=== PATIENT | female | born 1935 | race African-American/Black ===

== ENCOUNTER 2017-05-12 12:13 | Inpatient (IN) | payer MEDICARE ==
[~2017-05-12] VITALS: Ht 165.1 cm; Wt 63.0 kg
[2017-05-12] MEDS ORDERED: IV NORMAL SALINE 1,000ML 1,000 ML IV SCH (12:42)
[2017-05-12] MEDS ORDERED: 0.9 % SODIUM CHLORIDE 10 ML DISP.SYRIN. IV PRN (12:45)
--- NOTE | 2017-05-12 13:03 | RAD ---
Portable chest, 05/12/2017: History: Weakness The heart size is normal. There is calcific plaquing of the aorta. The pulmonary vascularity is normal. No pulmonary infiltrates are seen. There is no evidence of pleural fluid. Postsurgical change is evident at the right shoulder. IMPRESSION: No acute cardiopulmonary abnormality is detected.
--- NOTE | 2017-05-12 13:18 | EKG ---
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
[2017-05-12 13:24] LABS: BASO % 0 % (0-3); EOS % 0 % (0-3); HEMATOCRIT 42.9 % (36.0-47.0); HEMOGLOBIN 13.7 g/dL (12.0-15.5); LYMPH # 0.9 x10^3/uL (1.0-4.8); LYMPH % 5 % (24-48); MEAN CORPUSCULAR HEMOGLOBIN 29 pg (25-35); MEAN CORPUSCULAR HGB CONC 32 g/dL (31-37); MEAN CORPUSCULAR VOLUME 90 fL (79-100); MONO # 0.7 x10^3/uL (0.0-1.1); MONO % 4 % (0-9); NEUT # 16.2 x10^3uL (1.8-7.7); NEUT % 91 % (31-73); PLATELET COUNT 255 x10^3/uL (140-400); RED BLOOD COUNT 4.74 x10^6/uL (3.50-5.40); WHITE BLOOD COUNT 17.8 x10^3/uL (4.0-11.0)
[2017-05-12 13:43] LABS: ALBUMIN 2.4 g/dL (3.4-5.0); ALBUMIN/GLOBULIN RATIO 0.4 (1.0-1.7); CALCIUM 10.6 mg/dL (8.5-10.1); CREATININE 0.9 mg/dL (0.6-1.0); GFR 72.5; MAGNESIUM 1.8 mg/dL (1.8-2.4); POTASSIUM 3.5 mmol/L (3.5-5.1); TOTAL BILIRUBIN 0.7 mg/dL (0.2-1.0); TOTAL PROTEIN 8.3 g/dL (6.4-8.2)
[2017-05-12 14:12] LABS: % BANDS 1 % (0-9); % LYMPHS 10 % (24-48); % MONOS 3 % (0-10); % SEGS 86 % (35-66); PLT ESTIMATE ADEQUATE (ADEQUATE)
[2017-05-12 14:13] LABS: ANISOCYTOSIS SLIGHT; HYPOCHROMIA SLIGHT; POLYCHROMASIA SLIGHT; TARGET CELLS OCC; TOXIC GRANULATION PRESENT
[2017-05-12] MEDS ORDERED: VANCOMYCIN 1 GM in IV NORMAL SALINE 250ML 250 ML IV ONE (14:15)
[2017-05-12] MEDS ORDERED: IV NORMAL SALINE 1,000ML 1,000 ML IV ONE (14:15)
[2017-05-12] MEDS ORDERED: PIPERACILLIN/TAZOBACTAM 3.375 GM in IV NORMAL SALINE 50ML 50 ML IV ONE (14:15)
[2017-05-12] MEDS ORDERED: VANCOMYCIN 1.5 GM in IV NORMAL SALINE 500ML 500 ML IV ONE (14:30)
[2017-05-12] MEDS ORDERED: IV NORMAL SALINE 50ML 50 ML ONE ×2 (14:55→14:58)
[2017-05-12] MEDS ORDERED: PIPERACILLIN/TAZOBACTAM 3.375 GM VIAL IV ONE ×2 (14:56→14:58)
--- NOTE | 2017-05-12 15:02 | PHYS DOC ---
Past History Past Medical History: Dementia, Diabetes, Hypertension Adult General Chief Complaint Chief Complaint: WEAKNESS/GENERALIZED HPI HPI 82-year-old female patient with history of hypertension and dementia and diabetes who lives with her grandmother brought in by her grandmother because of not eating and drinking for the last 5 days and stays most of time at the bed. Patient's granddaughter states she usually talking and walking without help but for the last 4-5 days she was not acting like herself and was more confused and the granddaughter thinks maybe she has urinary tract infection. Patient is not able to give history and talked with very low volume voice and able to tell her name only. Review of Systems Review of Systems Unable to obtain because of medical condition Current Medications Current Medications Current Medications Medications (Trade) Dose Ordered Sig/Tamela Start Time Stop Time Status Last Admin Dose Admin Piperacillin Sod/ Tazobactam Sod 3.375 gm/Sodium Chloride 50 ml @ 100 mls/hr 1X ONCE 05/12/17 14:15 05/12/17 14:44 DC Sodium Chloride 1,000 ml @ 1,000 mls/hr 1X ONCE 05/12/17 14:15 05/12/17 15:14 Sodium Chloride (Normal Saline Flush) 10 ml QSHIFT PRN 05/12/17 12:45 Vancomycin HCl 1.5 gm/Sodium Chloride 500 ml @ 250 mls/hr 1X ONCE 05/12/17 14:30 05/12/17 16:29 Vancomycin HCl 1 gm/Sodium Chloride 250 ml @ 250 mls/hr 1X ONCE 05/12/17 14:15 05/12/17 14:21 DC Allergies Allergies Allergies Coded Allergies Type Severity Reaction Last Updated Verified No Known Drug Allergies 05/12/17 No Physical Exam Physical Exam Constitutional: Moderate distress, very dry, unable to talk, HENT: Normocephalic, atraumatic, oropharynx dry Eyes: PERRLA, EOMI, conjunctiva normal, no discharge. [] Neck: Normal range of motion, no tenderness, supple, no stridor. [] Cardiovascular: Tachycardia,no murmur [] Lungs & Thorax: Bilateral breath sounds clear to auscultation [] Abdomen: Bowel sounds normal, soft, no tenderness, no masses, no pulsatile masses. [] Skin: Dry, grade 1 pressure sore in sacrum area Back: No tenderness, no CVA tenderness. [] Extremities: No tenderness, no cyanosis, no clubbing, ROM intact, no edema. [] Neurologic: Alert and oriented X 1, normal motor function, normal sensory function, no focal deficits noted. [] Current Patient Data Lab Results Laboratory Tests Test 05/12/17 13:05 White Blood Count 17.8 x10^3/uL (4.0-11.0) H Red Blood Count 4.74 x10^6/uL (3.50-5.40) Hemoglobin 13.7 g/dL (12.0-15.5) Hematocrit 42.9 % (36.0-47.0) Mean Corpuscular Volume 90 fL (79-100) Mean Corpuscular Hemoglobin 29 pg (25-35) Mean Corpuscular Hemoglobin Concent 32 g/dL (31-37) Red Cell Distribution Width 16.0 % (11.5-14.5) H Platelet Count 255 x10^3/uL (140-400) Neutrophils (%) (Auto) 91 % (31-73) H Lymphocytes (%) (Auto) 5 % (24-48) L Monocytes (%) (Auto) 4 % (0-9) Eosinophils (%) (Auto) 0 % (0-3) Basophils (%) (Auto) 0 % (0-3) Neutrophils # (Auto) 16.2 x10^3uL (1.8-7.7) H Lymphocytes # (Auto) 0.9 x10^3/uL (1.0-4.8) L Monocytes # (Auto) 0.7 x10^3/uL (0.0-1.1) Eosinophils # (Auto) 0.0 x10^3/uL (0.0-0.7) Basophils # (Auto) 0.0 x10^3/uL (0.0-0.2) Segmented Neutrophils % 86 % (35-66) H Band Neutrophils % 1 % (0-9) Lymphocytes % 10 % (24-48) L Monocytes % 3 % (0-10) Toxic Granulation Present Platelet Estimate Adequate (ADEQUATE) Large Platelets Occ Polychromasia Slight Hypochromasia Slight Anisocytosis Slight Target Cells Occ Prothrombin Time 12.6 SEC (9.4-11.4) H Prothrombin Time INR 1.2 (0.9-1.1) H Sodium Level 145 mmol/L (136-145) Potassium Level 3.5 mmol/L (3.5-5.1) Chloride Level 101 mmol/L (98-107) Carbon Dioxide Level 33 mmol/L (21-32) H Anion Gap 11 (6-14) Blood Urea Nitrogen 36 mg/dL (7-20) H Creatinine 0.9 mg/dL (0.6-1.0) Estimated GFR (Cockcroft-Gault) 72.5 BUN/Creatinine Ratio 40 (6-20) H Glucose Level 137 mg/dL (70-99) H Lactic Acid Level 4.6 mmol/L (0.4-2.0) *H Calcium Level 10.6 mg/dL (8.5-10.1) H Magnesium Level 1.8 mg/dL (1.8-2.4) Total Bilirubin 0.7 mg/dL (0.2-1.0) Aspartate Amino Transferase (AST) 52 U/L (15-37) H Alanine Aminotransferase (ALT) 39 U/L (14-59) Alkaline Phosphatase 105 U/L (46-116) Creatine Kinase 134 U/L (26-192) Creatine Kinase MB (Mass) 1.3 ng/mL (0.0-3.6) Creatine Kinase MB Relative Index 1.0 % (0-4) Troponin I Quantitative 0.051 ng/mL (0-0.055) AB-Edj-N-Type Natriuretic Peptide 3913 pg/mL (0-449) H Total Protein 8.3 g/dL (6.4-8.2) H Albumin 2.4 g/dL (3.4-5.0) L Albumin/Globulin Ratio 0.4 (1.0-1.7) L Lipase 32 U/L (73-393) L EKG EKG EKG performed at 1315 interpreted by me and showed[ sinus tachycardia at rate of 105, left axis deviation, left anterior fascicular block, LVH, no acute ST and T wave abnormality,] Radiology/Procedures Radiology/Procedures [] [address] [place] [id number] IMAGING REPORT Signed PATIENT: COLTON WEEMS ACCOUNT: [id number] : 1935 LOCATION: ER AGE: 82 SEX: F EXAM STATUS: REG ER ORD. PHYSICIAN: CHAR WELLS MD REASON: generalized weakness PROCEDURE: PORTABLE CHEST 1V Portable chest, 05/12/2017: History: Weakness The heart size is normal. There is calcific plaquing of the aorta. The pulmonary vascularity is normal. No pulmonary infiltrates are seen. There is no evidence of pleural fluid. Postsurgical change is evident at the right shoulder. IMPRESSION: No acute cardiopulmonary abnormality is detected. DICTATED AND SIGNED BY: ADELIA SILVA MD DATE: 05/12/17 1300 CC: CHAR WELLS MD; PCP,NO ~ Course & Med Decision Making Course & Med Decision Making Pertinent Labs and Imaging studies reviewed. (See chart for details) Evaluation of patient in ER showed 82-year-old male patient brought in because of generalized weakness and not eating and drinking for several days. Patient's family were concern for high blood pressure of 180 at home. Patient had mild tachycardia without fever or hypotension with lactic acid of 4.6 and dry oral mucosa. 2 L of IV fluid bolus was given and Zosyn and vancomycin was started. Patient felt better with IV fluid and started to talk asking for food. White count was 17,000 and UA showed 5-10 WBC. Chest x-ray was unremarkable. Plan to admit patient to ICU with diagnosis of severe sepsis. Dr. Hein informed at 1527 and agreed with plan of admission Dragon Disclaimer Dragon Disclaimer This electronic medical record was generated, in whole or in part, using a voice recognition dictation system. Departure Departure: Impression: Primary Impression: Severe sepsis Additional Impressions: UTI (urinary tract infection) Generalized weakness Dehydration Leukocytosis Pressure sore Tobacco abuse Tobacco abuse counseling Disposition: ADMITTED INPATIENT (At 1527) Condition: GUARDED Referrals: PCP,NO (PCP) Critical Care Time Critical care time was [70] minutes exclusive of procedures. Problem Qualifiers CHAR WELLS MD May 12, 2017 15:02
[2017-05-12 15:18] LABS: BILIRUBIN,URINE NEG (NEG); CLARITY,URINE CLOUDY; COLOR,URINE AMBER; GLUCOSE,URINE NEG (NEG)
[2017-05-12 15:19] LABS: BACTERIA,URINE 0 /HPF (0-FEW); SQUAMOUS EPITHELIAL CELL,UR FEW /LPF
[2017-05-12 15:20] LABS: HYALINE CASTS, URINE MOD /HPF
[2017-05-12] MEDS: IV NORMAL SALINE 1,000ML 1,000 ML IV SCH ×2 (15:45→22:25)
[2017-05-12 20:00] VITALS: BP 184/85
[2017-05-12] MEDS ORDERED: METF100010 PO (21:46)
[2017-05-12] MEDS ORDERED: LISI40TA PO (21:46)
[2017-05-12] MEDS ORDERED: METO50TA29 PO (21:47)
[2017-05-12 21:51] VITALS: BP 199/90
[2017-05-12 22:51] VITALS: BP 161/74
[2017-05-12 23:30] VITALS: BP 149/74
[2017-05-13] VITALS (17 sets, daily range): BP systolic 148–174; BP diastolic 65–92
[2017-05-13] MEDS ORDERED: VANCOMYCIN PER PHARMACY MC PRN (02:15)
[2017-05-13] MEDS: hydrALAZINE 20 MG/ML VIAL. IV PRN (03:54)
[2017-05-13] MEDS: PIPERACILLIN/TAZOBACTAM 3.375 GM in IV NORMAL SALINE 50ML 50 ML IV SCH ×4 (05:47→23:32)
[2017-05-13 06:36] LABS: BASO % 0 % (0-3); EOS % 0 % (0-3); HEMATOCRIT 35.1 % (36.0-47.0); HEMOGLOBIN 11.5 g/dL (12.0-15.5); LYMPH # 1.4 x10^3/uL (1.0-4.8); LYMPH % 10 % (24-48); MEAN CORPUSCULAR HEMOGLOBIN 29 pg (25-35); MEAN CORPUSCULAR HGB CONC 33 g/dL (31-37); MEAN CORPUSCULAR VOLUME 90 fL (79-100); MONO # 0.6 x10^3/uL (0.0-1.1); MONO % 5 % (0-9); NEUT % 85 % (31-73); PLATELET COUNT 226 x10^3/uL (140-400); RED BLOOD COUNT 3.92 x10^6/uL (3.50-5.40); RED CELL DISTRIBUTION WIDTH 16.1 % (11.5-14.5); WHITE BLOOD COUNT 12.9 x10^3/uL (4.0-11.0)
[2017-05-13 07:06] LABS: ALBUMIN 1.7 g/dL (3.4-5.0); ALBUMIN/GLOBULIN RATIO 0.4 (1.0-1.7); CALCIUM 8.9 mg/dL (8.5-10.1); CREATININE 0.6 mg/dL (0.6-1.0); GFR 115.8; TOTAL BILIRUBIN 0.5 mg/dL (0.2-1.0); TOTAL PROTEIN 6.2 g/dL (6.4-8.2)
[2017-05-13 07:09] LABS: POTASSIUM 2.6 mmol/L (3.5-5.1)
[2017-05-13] MEDS: POTASSIUM CHLORIDE 20 MEQ TABLET.ER. PO SCH ×3 (08:50→19:55)
[2017-05-13] MEDS: LACTOBACILLUS RHAMNOSUS GG 1 CAPSULE. PO SCH ×2 (08:51→19:55)
[2017-05-13] MEDS: METOPROLOL SUCC 24HR ER 50 MG TAB.ER.24H. PO SCH (08:51)
[2017-05-13] MEDS: MAGNESIUM SULFATE 2GM 50 ML IV SCH (08:52)
[2017-05-13 12:31] LABS: AMPHETAMINE/METHAMPHETAMINE NEG (NEG); BARBITURATES NEG (NEG); BENZODIAZEPINES NEG (NEG); CANNABINOIDS NEG (NEG); COCAINE NEG (NEG); METHADONE NEG (NEG); OPIATES NEG (NEG); PHENCYCLIDINE NEG (NEG)
[2017-05-13 14:06] LABS: CALCIUM 9.3 mg/dL (8.5-10.1); CREATININE 0.7 mg/dL (0.6-1.0); GFR 96.9; POTASSIUM 3.2 mmol/L (3.5-5.1)
[2017-05-13] MEDS ORDERED: VANCOMYCIN 1 GM in IV NORMAL SALINE 250ML 250 ML IV SCH (15:00)
[2017-05-13] MEDS ORDERED: POTASSIUM CHLORIDE 20 MEQ TABLET.ER. PO ONE (15:00)
--- NOTE | 2017-05-13 15:36 | RAD ---
Portable AP upright view CXR: Clinical indications: Weakness. CHF. Comparison: May 12, 2017. Findings: No acute lung infiltrate or pleural effusion or pulmonary edema or lung mass or pneumothorax is seen. The heart size, pulmonary vasculature, mediastinum and both ty are unremarkable. Impression: No acute radiographic abnormality is seen.
[2017-05-13 16:00] LABS: INFLUENZA A PATIENT NEGATIVE (NEGATIVE); INFLUENZA B PATIENT NEGATIVE (NEGATIVE)
--- NOTE | 2017-05-13 16:09 | RAD ---
CT of the head without contrast, 05/13/2017: History: Altered mental status The study is compromised by extensive patient motion artifact. There is moderate cerebral atrophy. There are patchy lucencies in the deep white matter bilaterally compatible with chronic ischemic change. The ventricles are mildly prominent on a compensatory basis. There is no shift of the midline structures. No intracranial hemorrhage is identified. There is calcific plaquing of the distal internal carotid and vertebral IMPRESSION: Limited exam demonstrating no acute intracranial abnormality. PQRS Compliance Statement: One or more of the following individualized dose reduction techniques were utilized for this examination: 1. Automated exposure control 2. Adjustment of the mA and/or kV according to patient size 3. Use of iterative reconstruction technique
--- NOTE | 2017-05-13 18:04 | HP ---
ADMIT DATE: 05/12/2017 HISTORY OF PRESENT ILLNESS: The patient is an 82-year-old -[place] female patient who came to the Emergency Room complaining of weakness and easy fatigability. She apparently lives with the granddaughter, who brought her because of poor appetite. She has not been eating or drinking for the last 5 days and stays most time at the bed and the granddaughter said that she is usually talking and walking without help, but for the last 4 or 5 days, she was not acting like herself and was more confused and she thinks that he might have urinary tract infection. The patient is not able to give any history when she arrived to the Emergency Room, was talking in a very low volume voice. She apparently was extensively investigated in the Emergency Room and was found to have leukocytosis, severe hypokalemia, and lactic acidosis. Her lactic acid was 4.6. She was found also to have hypomagnesemia and she was treated aggressively with IV fluid, IV antibiotic, although no clear, specific focus of infection showed up as her chest x-ray was unremarkable and her urinalysis was really unremarkable. PAST MEDICAL HISTORY: Significant for lisinopril 40 mg once a day, metformin 1000 mg once a day, and metoprolol succinate 50 mg extended release once a day. ALLERGIES: She has no known drug allergies. FAMILY HISTORY: Probably unremarkable. SOCIAL HISTORY: She lives with her granddaughter. She apparently does not smoke, drink alcohol or use recreational drugs. REVIEW OF SYSTEMS: As per history of present illness. PHYSICAL EXAMINATION: GENERAL: On arrival to the Emergency Room, she was somewhat lethargic, arousable. She was pale, but no jaundice, cyanosis, or thyromegaly. No jugular venous distention. No limb edema. VITAL SIGNS: Her heart rate was 108, blood pressure was 175/88, temperature was 98.2, respiratory rate was 20, and oxygen saturation was 93%. HEAD, EYES, EARS, NOSE, AND THROAT: Normocephalic, atraumatic. NECK: Supple. HEART: Showed no first and second heart sounds. No gallop, rub or murmur. CHEST: Clear to auscultation. No crepitation or rhonchi. ABDOMEN: Distended, soft, and nontender. No guarding or rigidity. No organomegaly. Hernial orifice intact. Bowel sounds normal. NEUROLOGIC: She was sleepy, but arousable. Her cranial nerves are intact. EXTREMITIES: She moves extremities without difficulty, although she is mostly bed bound. LABORATORY DATA: On arrival to the Emergency Room showed serum sodium of 145, potassium 3.5, chloride 101, bicarbonate 33, anion gap of 11, BUN 36, creatinine 0.9, estimated GFR was 72 mL per minute. Her glucose was 137, lactic acid was 4.6, calcium was 10.6, magnesium was 1.8. Total bilirubin, AST, ALT, alkaline phosphatase were normal. Her total protein was 8.3, albumin was 2.4, and serum lipase was 32. White cell count was 17,800, hemoglobin 13.7, hematocrit 42.9, MCV 90, and platelet count of 255,000. Prothrombin time was 12.6, INR 1.2. Urinalysis showed the urine was phillip, cloudy with a pH of 5.5, specific gravity 1.020. The urine was positive for small amount of protein, negative for glucose, ketones, trace of blood, negative for nitrite. There was small amount of leukocyte esterase and 6 to 10 wbc's, 5 to 10 wbc's, and no bacteria. She did have a chest x-ray showed that there is calcific plaquing of the aorta. The heart size is normal. The pulmonary vascularity is normal. No pulmonary infiltrates are seen. There is no evidence of pleural fluid. He has post-surgical changes as evident of the right shoulder and the impression is that the patient has no acute cardiopulmonary abnormalities detected. ASSESSMENT AND PLAN: The patient was admitted basically with severe sepsis, possible urinary tract infection, generalized weakness, dehydration, leukocytosis, and pressure sore. She was given about 2 liters of fluid in the Emergency Room and continued on normal saline. She was also started on intravenous antibiotic in the form of vancomycin as well as Zosyn and we will obviously await for the result of the culture and sensitivity of urine and blood culture, and decide on further management accordingly. ASPEN FLOWER MD DR: JOCELYN/antonio JOB#: [id number] / [id number]
[2017-05-14] VITALS (11 sets, daily range): BP systolic 134–198; BP diastolic 64–93
[2017-05-14] MEDS: hydrALAZINE 20 MG/ML VIAL. IV PRN (03:58)
[2017-05-14] MEDS: PIPERACILLIN/TAZOBACTAM 3.375 GM in IV NORMAL SALINE 50ML 50 ML IV SCH ×3 (05:37→19:28)
--- NOTE | 2017-05-14 06:12 | PN ---
DATE: 05/13/2017 SUBJECTIVE: The patient is resting, slightly propped up in bed, in no apparent distress. She continues to be very lethargic and sleepy, but arousable. She denied any complaint. OBJECTIVE: GENERAL: When I examined her this afternoon, she looked well and was clearly in no apparent respiratory distress, slightly pale, but no jaundice, cyanosis, or thyromegaly. No crepitation, no limb edema. VITAL SIGNS: Her heart rate was 96, blood pressure was 152/65, temperature was 99, respiratory rate was 25, and oxygen saturation was 97% on room air. HEAD, EYES, EARS, NOSE AND THROAT: Showed normocephalic, atraumatic. NECK: Supple. HEART: Showed normal first and second heart sounds with no gallop, rub or murmur. CHEST: Clear to auscultation. No crepitation or rhonchi. ABDOMEN: Distended, soft, nontender. No guarding or rigidity. No organomegaly. All hernial orifices are intact. Bowel sounds normal. NEUROLOGIC: Sleepy, but arousable. All her cranial nerves are intact. She moves all extremities without difficulty, although she has tendency to lean towards the right side. Her intake over the last 24 hours was 3000, output was 500. LABORATORY DATA: As of this morning showed her serum sodium to be 144, potassium 3.2, chloride 105, bicarbonate 31, anion gap of 8, BUN 21, creatinine 0.7, estimated GFR was 97 mL per minute. Her glucose 143, calcium was 9.3, magnesium 2. Her lactic acid has normalized at 1.4. Her total protein was 6.2, albumin was 1.7. First set of cardiac enzyme was 0.079 and the second one was 0.227. IMPRESSION: In summary, this is an 82-year-old -[place] female patient who was admitted with weakness, poor appetite. The patient has been eating or drinking for the last 5 days. She was diagnosed with what seems to be severe sepsis, although so far we do not have any obvious focus of infection. Her urinalysis was really unremarkable. Chest x-ray was clear. She has definitely lactic acidosis, most likely type B due to metformin and leukocytosis. Her lab work showed that her white cell count actually is improving down to 12,900. Lactic acidosis, resolved. Hypomagnesemia, improved. Hypokalemia, slightly better and lactic acidosis was resolved; however, she has hypercalcemia and hyperproteinemia in the context of somebody who is a smoker obviously raises the possibility that she might have a malignancy and/or multiple myeloma. We have ordered another chest x-ray. I would check also serum protein electrophoresis and continue with gentle rehydration if the chest x-ray does not show any evidence of fluid overload. ASPEN FLOWER MD DR: JOCELYN/antonio JOB#: [id number] / [id number]
[2017-05-14 06:42] LABS: BASO % 0 % (0-3); EOS % 0 % (0-3); HEMATOCRIT 32.7 % (36.0-47.0); HEMOGLOBIN 10.9 g/dL (12.0-15.5); LYMPH # 1.2 x10^3/uL (1.0-4.8); LYMPH % 11 % (24-48); MEAN CORPUSCULAR HEMOGLOBIN 30 pg (25-35); MEAN CORPUSCULAR HGB CONC 33 g/dL (31-37); MEAN CORPUSCULAR VOLUME 89 fL (79-100); MONO # 0.5 x10^3/uL (0.0-1.1); MONO % 5 % (0-9); NEUT # 9.1 x10^3uL (1.8-7.7); NEUT % 84 % (31-73); PLATELET COUNT 211 x10^3/uL (140-400); RED BLOOD COUNT 3.67 x10^6/uL (3.50-5.40); RED CELL DISTRIBUTION WIDTH 16.2 % (11.5-14.5); WHITE BLOOD COUNT 10.8 x10^3/uL (4.0-11.0)
[2017-05-14 06:59] LABS: ALBUMIN 1.9 g/dL (3.4-5.0); ALBUMIN/GLOBULIN RATIO 0.4 (1.0-1.7); CALCIUM 9.2 mg/dL (8.5-10.1); CREATININE 0.7 mg/dL (0.6-1.0); GFR 96.9; POTASSIUM 3.5 mmol/L (3.5-5.1); TOTAL BILIRUBIN 0.6 mg/dL (0.2-1.0); TOTAL PROTEIN 6.2 g/dL (6.4-8.2)
[2017-05-14 07:52] LABS: % BANDS 5 % (0-9); % LYMPHS 16 % (24-48); % MONOS 4 % (0-10); % SEGS 73 % (35-66); PLATELET CLUMP PRESENT; PLT ESTIMATE ADEQUATE (ADEQUATE)
[2017-05-14 07:53] LABS: OVALOCYTES OCC; SCHISTOCYTES OCC; TARGET CELLS OCC
[2017-05-14 07:54] LABS: HYPOCHROMIA SLIGHT
[2017-05-14] MEDS: MAGNESIUM SULFATE 2GM 50 ML IV SCH (08:09)
[2017-05-14] MEDS: LACTOBACILLUS RHAMNOSUS GG 1 CAPSULE. PO SCH ×2 (08:09→21:00)
[2017-05-14] MEDS: METOPROLOL SUCC 24HR ER 50 MG TAB.ER.24H. PO SCH (08:10)
[2017-05-14] MEDS: POTASSIUM CHLORIDE 20 MEQ TABLET.ER. PO SCH ×3 (08:11→21:00)
--- NOTE | 2017-05-14 08:46 | PDOC2 ---
BIBIANA ANN BLANKING PRESS OPERATOR 05/14/17 0846: CONSULT Date of Admission DATE: 05/14/17 TIME: 08:42 Reason for Consult: elevated trop Problem List Problems Medical Problems: (1) Dehydration Status: Acute (2) Generalized weakness Status: Acute (3) Leukocytosis Status: Acute (4) Pressure sore Status: Acute (5) Severe sepsis Status: Acute (6) Tobacco abuse Status: Acute (7) Tobacco abuse counseling Status: Acute (8) UTI (urinary tract infection) Status: Acute History of Present Illness Ms Ann is an 82 year old female with history of hypertension, dementia and diabetes who was brought to the ED by her granddaughter with complaints of not eating, drinking or walking over the past 4-5 days. She was apparently ambulatory prior to this but had not been getting out of bed. She had also been more confused lately. She is currently up in a chair, alert but unable to give history. She does deny chest pain or dyspnea currently. She was noted to have an elevated troponin so consult was called. History is obtained from family. Past Medical History hypertension, dementia, CHF, stroke, frequent falls. Past Surgical History shoulder surgery Family History non contributory due to age Social History + smoker, no significant ETOH, no illicit drugs. Recently moved from own home in [place] and currently lives with granddaughter. Current Medications Current Medications Sodium Chloride 1,000 ml @ 150 mls/hr Q6H40M IV Last administered on at 16:59; Start 05/12/17 at 12:42; Stop 05/12/17 at 19:21; Status DC Sodium Chloride (Normal Saline Flush) 10 ml QSHIFT PRN IV AFTER MEDS AND BLOOD DRAWS; Start 05/12/17 at 12:45 Sodium Chloride 1,000 ml @ 1,000 mls/hr 1X ONCE IV Last administered on at 15:04; Start 05/12/17 at 14:15; Stop 05/12/17 at 15:14; Status DC Piperacillin Sod/ Tazobactam Sod 3.375 gm/Sodium Chloride 50 ml @ 100 mls/hr 1X ONCE IV Last administered on 05/12/17at 15:05; Start 05/12/17 at 14:15; Stop 05/12/17 at 14:44; Status DC Vancomycin HCl 1 gm/Sodium Chloride 250 ml @ 250 mls/hr 1X ONCE IV ; Start at 14:15; Stop 05/12/17 at 14:21; Status DC Vancomycin HCl 1.5 gm/Sodium Chloride 500 ml @ 250 mls/hr 1X ONCE IV Last administered on 05/12/17at 15:06; Start 05/12/17 at 14:30; Stop 05/12/17 at 16:29 ; Status DC Sodium Chloride 50 ml @ As Directed STK-MED ONCE .ROUTE ; Start 05/12/17 at 14: 55; Stop 05/12/17 at 14:56; Status DC Piperacillin Sod/ Tazobactam Sod (Zosyn) 3.375 gm STK-MED ONCE IV ; Start at 14:56; Stop 05/12/17 at 14:57; Status DC Sodium Chloride 50 ml @ As Directed STK-MED ONCE .ROUTE ; Start 05/12/17 at 14: 58; Stop 05/12/17 at 14:59; Status DC Piperacillin Sod/ Tazobactam Sod (Zosyn) 3.375 gm STK-MED ONCE IV ; Start at 14:58; Stop 05/12/17 at 14:59; Status DC Sodium Chloride 1,000 ml @ 150 mls/hr Q6H40M IV Last administered on at 15:45; Start 05/12/17 at 15:45; Stop 05/13/17 at 07:30; Status DC Metoprolol Succinate (Toprol Xl) 50 mg DAILY PO Last administered on 05/14/17at 08:10; Start 05/13/17 at 09:00 Hydralazine HCl (Apresoline) 10 mg PRN Q4HRS PRN IV ELEVATED BP, SEE COMMENTS Last administered on 05/14/17at 03:58; Start 05/13/17 at 02:15 Vancomycin HCl (Vanco Per Pharmacy) 1 each PRN DAILY PRN MC SEE COMMENTS Last administered on 05/13/17at 07:28; Start 05/13/17 at 02:15 Piperacillin Sod/ Tazobactam Sod 3.375 gm/Sodium Chloride 50 ml @ 100 mls/hr Q6HRS IV Last administered on 05/14/17at 05:37; Start 05/13/17 at 06:00 Vancomycin HCl 1 gm/Sodium Chloride 250 ml @ 250 mls/hr Q24H IV Last administered on 05/13/17at 16:36; Start 05/13/17 at 15:00 Vancomycin HCl 1 each 1X ONCE MC ; Start 05/14/17 at 14:30; Stop 05/14/17 at 14 :31 Potassium Chloride (Klor-Con) 40 meq Q2H PO Last administered on 05/13/17at 12: 21; Start 05/13/17 at 07:30; Stop 05/13/17 at 09:31; Status DC Magnesium Sulfate 50 ml @ 50 mls/hr DAILY IV Last administered on 05/13/17at 08: 52; Start 05/13/17 at 09:00; Stop 05/16/17 at 08:59 Lactobacillus Rhamnosus (Culturelle) 1 cap BID PO Last administered on at 08:09; Start 05/13/17 at 09:00 Potassium Chloride (Klor-Con) 20 meq 1X ONCE PO Last administered on at 16:32; Start 05/13/17 at 15:00; Stop 05/13/17 at 15:01; Status DC Potassium Chloride (Klor-Con) 20 meq TID PO Last administered on 05/14/17at 08: 11; Start 05/13/17 at 21:00 Albuterol/ Ipratropium (Duoneb) 3 ml RTBID NEB ; Start 05/14/17 at 08:30 Active Scripts Active Reported Metoprolol Succinate ( Xl ) (Metoprolol Succinate) 50 Mg Tab.er.24h 50 Mg PO DAILY Lisinopril 40 Mg Tablet 40 Mg PO DAILY Metformin Hcl Er (Metformin Hcl) 1,000 Mg Tab.er.24 1 Tab PO DAILY Allergies: Coded Allergies: I S O L A T I O N *CONTACT* (Verified Allergy, Unknown, 05/14/17) +MRSA screen 05/12/17 NKMA (Verified Allergy, Unknown, 05/14/17) Review of System as per HPI, otherwise unable to obtain General: Alert, Cooperative, No acute distress HEENT: Atraumatic, EOMI Lungs: Other (decreased bases, poor inspiratory effort, otherwise clear) Heart: Regular rate, Normal S1, Normal S2, Other (no gallops, clicks or rubs) Abdomen: Normal bowel sounds, Soft Extremities: No cyanosis, No edema, Normal pulses Neuro: Other (mumbling speech ) Psych/Mental Status: Other (flat affect) VITALS Vital Signs Date Time Temp Pulse Resp B/P (MAP) Pulse Ox O2 Delivery O2 Flow Rate FiO2 05/14/17 08:25 Room Air 05/14/17 08:12 97.9 05/14/17 08:10 86 156/74 05/14/17 06:08 16 97 05/13/17 14:04 2.0 Labs Laboratory Tests Test 05/12/17 13:05 05/12/17 14:55 05/12/17 17:40 05/12/17 22:30 White Blood Count 17.8 x10^3/uL (4.0-11.0) Red Blood Count 4.74 x10^6/uL (3.50-5.40) Hemoglobin 13.7 g/dL (12.0-15.5) Hematocrit 42.9 % (36.0-47.0) Mean Corpuscular Volume 90 fL (79-100) Mean Corpuscular Hemoglobin 29 pg (25-35) Mean Corpuscular Hemoglobin Concent 32 g/dL (31-37) Red Cell Distribution Width 16.0 % (11.5-14.5) Platelet Count 255 x10^3/uL (140-400) Neutrophils (%) (Auto) 91 % (31-73) Lymphocytes (%) (Auto) 5 % (24-48) Monocytes (%) (Auto) 4 % (0-9) Eosinophils (%) (Auto) 0 % (0-3) Basophils (%) (Auto) 0 % (0-3) Neutrophils # (Auto) 16.2 x10^3uL (1.8-7.7) Lymphocytes # (Auto) 0.9 x10^3/uL (1.0-4.8) Monocytes # (Auto) 0.7 x10^3/uL (0.0-1.1) Eosinophils # (Auto) 0.0 x10^3/uL (0.0-0.7) Basophils # (Auto) 0.0 x10^3/uL (0.0-0.2) Segmented Neutrophils % 86 % (35-66) Band Neutrophils % 1 % (0-9) Lymphocytes % 10 % (24-48) Monocytes % 3 % (0-10) Toxic Granulation Present Platelet Estimate Adequate (ADEQUATE) Large Platelets Occ Polychromasia Slight Hypochromasia Slight Anisocytosis Slight Target Cells Occ Prothrombin Time 12.6 SEC (9.4-11.4) Prothromb Time International Ratio 1.2 (0.9-1.1) Sodium Level 145 mmol/L (136-145) Potassium Level 3.5 mmol/L (3.5-5.1) Chloride Level 101 mmol/L (98-107) Carbon Dioxide Level 33 mmol/L (21-32) Anion Gap 11 (6-14) Blood Urea Nitrogen 36 mg/dL (7-20) Creatinine 0.9 mg/dL (0.6-1.0) Estimated GFR (Cockcroft-Gault) 72.5 BUN/Creatinine Ratio 40 (6-20) Glucose Level 137 mg/dL (70-99) Lactic Acid Level 4.6 mmol/L (0.4-2.0) 2.0 mmol/L (0.4-2.0) Calcium Level 10.6 mg/dL (8.5-10.1) Magnesium Level 1.8 mg/dL (1.8-2.4) Total Bilirubin 0.7 mg/dL (0.2-1.0) Aspartate Amino Transf (AST/SGOT) 52 U/L (15-37) Alanine Aminotransferase (ALT/SGPT) 39 U/L (14-59) Alkaline Phosphatase 105 U/L (46-116) Creatine Kinase 134 U/L (26-192) Creatine Kinase MB (Mass) 1.3 ng/mL (0.0-3.6) Creatine Kinase MB Relative Index 1.0 % (0-4) Troponin I Quantitative 0.051 ng/mL (0-0.055) KA-Oiz-Q-Type Natriuretic Peptide 3913 pg/mL (0-449) Total Protein 8.3 g/dL (6.4-8.2) Albumin 2.4 g/dL (3.4-5.0) Albumin/Globulin Ratio 0.4 (1.0-1.7) Lipase 32 U/L (73-393) Urine Collection Type Unknown Urine Color Dania Urine Clarity Cloudy Urine pH 5.5 Urine Specific [place] 1.020 Urine Protein 30 mg/dl (NEG-TRACE) Urine Glucose (UA) Neg mg/dL (NEG) Urine Ketones (Stick) Neg mg/dL (NEG) Urine Blood Trace (NEG) Urine Nitrite (NEG) Urine Bilirubin Neg (NEG) Urine Urobilinogen Dipstick mg/dL (0.2 mg/dL) Urine Leukocyte Esterase Small (NEG) Urine RBC 6-10 /HPF (0-2) Urine WBC 5-10 /HPF (0-4) Urine Squamous Epithelial Cells Few /LPF Urine Bacteria 0 /HPF (0-FEW) Urine Hyaline Casts Mod /HPF Urine Mucus Marked /LPF Urine Opiates Screen Neg (NEG) Urine Methadone Screen Neg (NEG) Urine Barbiturates Neg (NEG) Urine Phencyclidine Screen Neg (NEG) Urine Amphetamine/Methamphetamine Neg (NEG) Urine Benzodiazepines Screen Neg (NEG) Urine Cocaine Screen Neg (NEG) Urine Cannabinoids Screen Neg (NEG) Urine Ethyl Alcohol Neg (NEG) Nasal Screen MRSA (PCR) Positive (Negative) Test 05/13/17 05:30 05/13/17 13:50 05/13/17 15:30 05/14/17 05:45 White Blood Count 12.9 x10^3/uL (4.0-11.0) 10.8 x10^3/uL (4.0-11.0) Red Blood Count 3.92 x10^6/uL (3.50-5.40) 3.67 x10^6/uL (3.50-5.40) Hemoglobin 11.5 g/dL (12.0-15.5) 10.9 g/dL (12.0-15.5) Hematocrit 35.1 % (36.0-47.0) 32.7 % (36.0-47.0) Mean Corpuscular Volume 90 fL (79-100) 89 fL (79-100) Mean Corpuscular Hemoglobin 29 pg (25-35) 30 pg (25-35) Mean Corpuscular Hemoglobin Concent 33 g/dL (31-37) 33 g/dL (31-37) Red Cell Distribution Width 16.1 % (11.5-14.5) 16.2 % (11.5-14.5) Platelet Count 226 x10^3/uL (140-400) 211 x10^3/uL (140-400) Neutrophils (%) (Auto) 85 % (31-73) 84 % (31-73) Lymphocytes (%) (Auto) 10 % (24-48) 11 % (24-48) Monocytes (%) (Auto) 5 % (0-9) 5 % (0-9) Eosinophils (%) (Auto) 0 % (0-3) 0 % (0-3) Basophils (%) (Auto) 0 % (0-3) 0 % (0-3) Neutrophils # (Auto) 11.0 x10^3uL (1.8-7.7) 9.1 x10^3uL (1.8-7.7) Lymphocytes # (Auto) 1.4 x10^3/uL (1.0-4.8) 1.2 x10^3/uL (1.0-4.8) Monocytes # (Auto) 0.6 x10^3/uL (0.0-1.1) 0.5 x10^3/uL (0.0-1.1) Eosinophils # (Auto) 0.0 x10^3/uL (0.0-0.7) 0.0 x10^3/uL (0.0-0.7) Basophils # (Auto) 0.0 x10^3/uL (0.0-0.2) 0.0 x10^3/uL (0.0-0.2) Sodium Level 148 mmol/L (136-145) 144 mmol/L (136-145) 145 mmol/L (136-145) Potassium Level 2.6 mmol/L (3.5-5.1) 3.2 mmol/L (3.5-5.1) 3.5 mmol/L (3.5-5.1) Chloride Level 109 mmol/L (98-107) 105 mmol/L (98-107) 109 mmol/L (98-107) Carbon Dioxide Level 29 mmol/L (21-32) 31 mmol/L (21-32) 29 mmol/L (21-32) Anion Gap 10 (6-14) 8 (6-14) 7 (6-14) Blood Urea Nitrogen 24 mg/dL (7-20) 21 mg/dL (7-20) 16 mg/dL (7-20) Creatinine 0.6 mg/dL (0.6-1.0) 0.7 mg/dL (0.6-1.0) 0.7 mg/dL (0.6-1.0) Estimated GFR (Cockcroft-Gault) 115.8 96.9 96.9 BUN/Creatinine Ratio 40 (6-20) 23 (6-20) Glucose Level 96 mg/dL (70-99) 143 mg/dL (70-99) 108 mg/dL (70-99) Lactic Acid Level 1.4 mmol/L (0.4-2.0) Calcium Level 8.9 mg/dL (8.5-10.1) 9.3 mg/dL (8.5-10.1) 9.2 mg/dL (8.5-10.1) Magnesium Level 1.5 mg/dL (1.8-2.4) 2.0 mg/dL (1.8-2.4) 1.8 mg/dL (1.8-2.4) Total Bilirubin 0.5 mg/dL (0.2-1.0) 0.6 mg/dL (0.2-1.0) Aspartate Amino Transf (AST/SGOT) 45 U/L (15-37) 64 U/L (15-37) Alanine Aminotransferase (ALT/SGPT) 28 U/L (14-59) 34 U/L (14-59) Alkaline Phosphatase 75 U/L (46-116) 84 U/L (46-116) Troponin I Quantitative 0.079 ng/mL (0-0.055) 0.227 ng/mL (0-0.055) 0.355 ng/mL (0-0.055) Total Protein 6.2 g/dL (6.4-8.2) 6.2 g/dL (6.4-8.2) Albumin 1.7 g/dL (3.4-5.0) 1.9 g/dL (3.4-5.0) Albumin/Globulin Ratio 0.4 (1.0-1.7) 0.4 (1.0-1.7) Influenza Type A (Rapid) Negative (NEGATIVE) Influenza Type B (Rapid) Negative (NEGATIVE) Segmented Neutrophils % 73 % (35-66) Band Neutrophils % 5 % (0-9) Lymphocytes % 16 % (24-48) Monocytes % 4 % (0-10) Platelet Estimate Adequate (ADEQUATE) Platelet Clumps, EDTA Present Hypochromasia Slight Target Cells Occ Ovalocytes Occ Schistocytes Occ Test 05/14/17 07:57 Glucose (Fingerstick) 102 mg/dL (70-99) Images CT head - IMPRESSION: Limited exam demonstrating no acute intracranial abnormality. CXR - no acute abnormality Assessment/Plan 1. elevated troponin likely demand related - check echocardiogram, add aspirin , continue beta ravi. Continue supportive care at this time. 2. sepsis with lactic acidosis - mgmt per PCP 3. accelerated hypertension - add hydralazine 4. hyperlipidemia - check lipids Problems: MARYAM ROBLEDO MD 05/14/17 1637: CONSULT Allergies: Coded Allergies: I S O L A T I O N *CONTACT* (Verified Allergy, Unknown, 05/14/17) +MRSA screen 05/12/17 NKMA (Verified Allergy, Unknown, 05/14/17) Assessment/Plan Pt. seen and examined. Agree with above LAPIDARY APPRENTICE note. 82 y.o woman presenting with possible sepsis. No clear source EKG and troponin mildly abnormal. Significant hypertension noted. Suspect demand mediated issue. Based on echo, could then consider further ischemic evaluation. Thanks. Problems: BIBIANA ANN APRN May 14, 2017 08:46 MARYAM ROBLEDO MD May 14, 2017 16:37
[2017-05-14] MEDS: IPRATRPIUM/ALBUTEROL 0.5/2.5MG 3 ML NEBU. NEB SCH ×2 (11:01→21:49)
[2017-05-14] MEDS: hydrALAZINE 25 MG TABLET PO SCH ×2 (12:18→21:00)
[2017-05-14] MEDS: NYSTATIN TOPICAL POWDER 15GM BOTTLE. TP SCH ×2 (16:00→21:00)
[2017-05-15] MEDS: PIPERACILLIN/TAZOBACTAM 3.375 GM in IV NORMAL SALINE 50ML 50 ML IV SCH ×2 (00:27→05:57)
[2017-05-15 04:00] VITALS: BP 170/85
--- NOTE | 2017-05-15 04:57 | PN ---
DATE: 05/14/2017 SUBJECTIVE: The patient is resting, slightly propped up in bed, in no apparent distress. She is definitely more awake, alert today. She has been in the chair and her granddaughter stated that she is definitely more awake today compared to since admission, but before last Friday she was up and about, managing to walk, climb about 14 stairs to go to the bathroom. She is mostly fairly independent, although she needs some assistance with shower and for toileting. PHYSICAL EXAMINATION: GENERAL: When I examined her today, she looked well and was clearly in no apparent respiratory distress, pale, but no jaundice, cyanosis or thyromegaly. No jugular venous distention. No lower limb edema. VITAL SIGNS: Her heart rate was 83, blood pressure 149/69, temperature was 97.5, respiratory 23 and oxygen saturation was 99%. HEAD, EYES, EARS, NOSE AND THROAT: Showed normocephalic, atraumatic. NECK: Supple. HEART: Showed normal first and second sounds. No gallop, rub or murmur. CHEST: Clear to auscultation. No crepitation or rhonchi. ABDOMEN: Distended, soft, nontender. No guarding or rigidity. No organomegaly. Hernial orifice intact. Bowel sounds normal. NEUROLOGIC: She is more awake, alert, responding. All cranial nerves appears intact. She moves extremities without difficulty; however, she continued to be mostly bedbound, chair bound. Her intake over the last 24 hours was 800, output was 125. LABORATORY DATA: This morning showed her serum sodium to be 145, potassium 3.5, chloride 109, bicarbonate 29, anion gap of 7, BUN 16, creatinine 0.7. Estimated GFR was 97 mL per minute. Her glucose was 108. Calcium was 9.2. Magnesium was 1.8. Total bilirubin, AST, ALT, alkaline phosphatase were normal. Her total protein was 6.2, albumin was 1.9. Her triglycerides were 86. Cholesterol was at 112. LDL cholesterol was 67, VLDL was 17, HDL cholesterol was 84 and the ratio was 4. Her prothrombin time was 12.6. INR 1.2. Her nasal screen for MRSA by PCR was positive; however, influenza A and B were negative. Her urine culture grew more than 100,000 colony forming units per mL of gram-negative rods identified as Pseudomonas aeruginosa sensitive to almost all antibiotics including piperacillin and tazobactam. ASSESSMENT: 1. This is an 82-year-old -[place] female patient who was admitted with weakness, poor appetite, has not been eating or drinking for almost 5 days. 2. Diagnosed with severe sepsis. 3. Lactic acidosis likely due to type B due to metformin. She was also found to have hypomagnesemia, hypokalemia as well as hypercalcemia. Her urine culture has grown more than 100,000 colony forming units per mL of gram-negative rods identified as Pseudomonas aeruginosa sensitive to Zosyn. PLAN: My plan is to discontinue vancomycin. Continue with IV Zosyn. Continue with physical and occupational therapy. We will hold her metformin for now. Her blood sugar seems to be so far all the measurements are within acceptable range and the plan is for her to go to [facility] as she is too weak and once able to, will need extensive assistance to go back home for the time being. ASPEN FLOWER MD DR: JOCELYN/antonio JOB#: [id number] / [id number]
[2017-05-15 06:50] LABS: BASO % 0 % (0-3); EOS % 0 % (0-3); HEMATOCRIT 29.8 % (36.0-47.0); HEMOGLOBIN 9.9 g/dL (12.0-15.5); LYMPH # 1.2 x10^3/uL (1.0-4.8); LYMPH % 15 % (24-48); MEAN CORPUSCULAR HEMOGLOBIN 30 pg (25-35); MEAN CORPUSCULAR HGB CONC 33 g/dL (31-37); MEAN CORPUSCULAR VOLUME 89 fL (79-100); MONO # 0.5 x10^3/uL (0.0-1.1); MONO % 6 % (0-9); NEUT # 6.3 x10^3uL (1.8-7.7); NEUT % 79 % (31-73); PLATELET COUNT 179 x10^3/uL (140-400); RED BLOOD COUNT 3.34 x10^6/uL (3.50-5.40); RED CELL DISTRIBUTION WIDTH 16.3 % (11.5-14.5); WHITE BLOOD COUNT 8.1 x10^3/uL (4.0-11.0)
[2017-05-15 07:09] LABS: ALBUMIN 1.8 g/dL (3.4-5.0); ALBUMIN/GLOBULIN RATIO 0.5 (1.0-1.7); CALCIUM 8.8 mg/dL (8.5-10.1); CREATININE 0.6 mg/dL (0.6-1.0); GFR 115.8; POTASSIUM 3.5 mmol/L (3.5-5.1); TOTAL BILIRUBIN 0.5 mg/dL (0.2-1.0); TOTAL PROTEIN 5.7 g/dL (6.4-8.2)
[2017-05-15] MEDS: METOPROLOL SUCC 24HR ER 50 MG TAB.ER.24H. PO SCH (07:39)
[2017-05-15] MEDS: LACTOBACILLUS RHAMNOSUS GG 1 CAPSULE. PO SCH (07:39)
[2017-05-15] MEDS: hydrALAZINE 25 MG TABLET PO SCH (07:39)
[2017-05-15] MEDS: POTASSIUM CHLORIDE 20 MEQ TABLET.ER. PO SCH (07:40)
[2017-05-15 08:00] VITALS: BP 188/95
[2017-05-15] MEDS ORDERED: ASPIRIN ENTERIC COATED 81 MG TABLET.DR. PO SCH (08:00)
[2017-05-15] MEDS: IPRATRPIUM/ALBUTEROL 0.5/2.5MG 3 ML NEBU. NEB SCH (10:23)
--- NOTE | 2017-05-15 17:01 | CARD ---
MR#: [id number] Date of Study: 05/14/2017 Ordering Physician: BIBIANA WEEMS, Referring Physician: Ginna CONCEPCION: Gladis Daily [facility] APPROVED REPORT EXAM: Two-dimensional and M-mode echocardiogram with Doppler and color Doppler. Other Information Quality : Average INDICATION COPD UTI 2D DIMENSIONS Left Atrium(2D)2.6 (1.6-4.0cm)IVSd1.6 (0.7-1.1cm) Aortic Root(2D)3.0 (2.0-3.7cm)LVDd4.5 (3.9-5.9cm) LVOT Diameter2.0 (1.8-2.4cm)PWd1.4 (0.7-1.1cm) LVDs3.3 (2.5-4.0cm)FS (%) 31.0 % LVEF(%)65.0 (>50%) Aortic Valve AoV Peak Jassi.149.0cm/Kristin Peak GR.8.9mmHg LVOT Peak Jassi.88.6cm/s Mitral Valve MV E Sxajubmt00.0cm/sMV DECEL [id number] MV A Rkkqihco328.6cm/sMV [id number] E/A Ratio0.6MVA (PHT)1.91cm2 Pulmonary Valve PV Peak Inxgmezs60.9cm/sPV Peak Grad.2mmHg Tricuspid Valve TR P. Oinbvwgb381lw/sRAP EWTMQWAD0crBu TR Peak Gr.93crXkPUTO45jxDd LEFT VENTRICLE The left ventricle is normal size. There is moderate concentric left ventricular hypertrophy. Proxima l septal thickening is noted. The left ventricle systolic function is normal. The Ejection Fraction i s 65%. There is normal LV segmental wall motion. Transmitral Doppler flow pattern is Grade I-abnormal relaxation pattern. RIGHT VENTRICLE The right ventricle is normal size. There is normal right ventricular wall thickness. The right ventr icular systolic function is normal. There is moderate pulmonary hypertension. PAP is 48mmHg. ATRIA The left atrium size is normal. The right atrium size is normal. The interatrial septum is intact wit h no evidence for an atrial septal defect or patent foramen ovale as noted on 2-D or Doppler imaging. AORTIC VALVE The aortic valve is trileaflet. The aortic valve is moderately calcified. Doppler and Color Flow reve aled trace aortic regurgitation. There is no significant aortic valvular stenosis. MITRAL VALVE Mitral annular calcification is mild. The mitral valve is normal in structure and function. There is no evidence of mitral valve prolapse. There is no mitral valve stenosis. Doppler and Color-flow revea led mild mitral regurgitation. TRICUSPID VALVE The tricuspid valve is normal in structure and function. Doppler and Color Flow revealed mild tricusp id regurgitation. There is no tricuspid valve stenosis. PULMONIC VALVE The pulmonary valve is normal in structure and function. Doppler and Color Flow revealed trace pulmon ic valvular regurgitation. GREAT VESSELS The aortic root is normal in size. The ascending aorta is normal in size. The IVC is normal in size a nd collapses >50% with inspiration. PERICARDIAL EFFUSION There is no evidence of significant pericardial effusion. Critical Notification Critical Value: No <Conclusion> The left ventricle systolic function is normal. The Ejection Fraction is 65%. There is normal LV segmental wall motion. Transmitral Doppler flow pattern is Grade I-abnormal relaxation pattern. Mild mitral regurgitation. Mild tricuspid regurgitation. There is moderate pulmonary hypertension. PAP is 48mmHg. There is no evidence of significant pericardial effusion. Signed by : Calixto Hanson, Electronically Approved : 05/15/2017 17:01:45
--- NOTE | 2017-05-15 22:32 | DS ---
DATE OF DISCHARGE: 05/15/2017 HISTORY OF PRESENT ILLNESS: The patient is an 82-year-old -[place] female patient, who was admitted originally on 05/12/2017, complained of weakness and easy fatigability. She apparently lives with her granddaughter, who brought her because of poor appetite. She has not been eating or drinking for the last 5 days, stays most of the time on the bed. Granddaughter said that she is usually able to walk and talk without any assistance, but for the last 4-5 days, she was not acting like herself and was more confused and she thinks she might have urinary tract infection. When she came, she was extremely lethargic, was not given any useful information; however, she was extensively investigated and was found to have leukocytosis, severe hypokalemia, lactic acidosis. Lactic acid was 4.6. She was found also to have hypomagnesemia, treated aggressively with IV fluid, IV antibiotic, although initially there was no clearcut focus of infection as her chest x-ray was unremarkable and urinalysis was really unremarkable. Subsequently, she was found to be on metformin ____ at least her lactic acidosis as she was hypertensive, but the urine culture has ultimately has grown more than 100,000 colony forming units of gram-negative rods, identified as Pseudomonas aeruginosa, sensitive to all antibiotics and in fact she was on piperacillin-tazobactam. She did very well. She was definitely more awake, alert, oriented, and interactive, and she remained stable. LABORATORY DATA: [place] [address] to 8.1 and her BUN and creatinine has normalized and it was felt that the patient would benefit from further rehabilitation, she was discharged to [facility] to continue with the rehabilitation process and also to continue with wound care and to finish the antibiotic orally. PHYSICAL EXAMINATION: GENERAL: When I saw her today, she looked well and was clearly in no apparent respiratory distress, pale, but no jaundice, cyanosis, or thyromegaly. No jugular venous distension. No lower limb edema. VITAL SIGNS: Her heart rate was 90, blood pressure was 188/95, temperature was 98.6, respiratory rate was 20, and oxygen saturation was 97% on room air. HEAD, EYES, EARS, NOSE, AND THROAT: Normocephalic, atraumatic. NECK: Supple. HEART: Showed normal first and second sounds. No gallop, rub, or murmur. CHEST: Clear to auscultation. No crepitation or rhonchi. ABDOMEN: Distended, soft, nontender. No guarding or rigidity. No organomegaly. Hernial orifice intact. Bowel sounds normal. NEUROLOGICAL: She is definitely more awake, alert, responding appropriately. Cranial nerves intact. She moves extremities without difficulty. She did have multiple wounds that she came in with. MEDICATIONS: She was discharged to [facility] to continue on following medications: Aspirin 81 mg once a day, ciprofloxacin 250 mg twice a day for 5 days, hydralazine 25 mg p.o. b.i.d., lactobacillus acidophilus 1 tablet twice a day, nystatin 15 grams twice a day, potassium chloride 3 times a day, metoprolol succinate 50 mg once a day. Her metformin and lisinopril were discontinued. FINAL DISCHARGE DIAGNOSES: 1. Weakness, poor appetite, dehydration. 2. Severe sepsis due to urinary tract infection. 3. Lactic acidosis likely type B diabetes due to metformin. 4. Hypomagnesemia. 5. Hypokalemia. 6. Hypercalcemia. Her urine culture has grown more than 100,000 colony forming units per mL of gram-negative rods identified as Pseudomonas aeruginosa sensitive to Zosyn and also ciprofloxacin. ASPEN FLOWER MD DR: JOCELYN/antonio JOB#: [id number] / [id number]
[2017-05-16 04:10] LABS: HEMOGLOBIN A1C 5.4 % (4.8-5.6)
[2017-05-16 10:09] LABS: ALPHA 1 0.4 g/dL (0.0-0.4); ALPHA 2 0.9 g/dL (0.4-1.0); GAMMA 1.3 g/dL (0.4-1.8); PROTEIN TOTAL 5.5 g/dL (6.0-8.5); SPEP AG RATIO 0.6 (0.7-1.7)
== END 2017-05-15 11:30 | DRG 871 ==
LOC: ER 12:13 → ICU 15:36
PROVIDERS: ADMIT Internal Medicine; ATTEND Internal Medicine
DX: A41.9 Sepsis, unspecified organism (principal); E43 Unspecified severe protein-calorie malnutrition; I11.0 Hypertensive heart disease with heart failure; L89.151 Pressure ulcer of sacral region, stage 1; E86.0 Dehydration; I50.9 Heart failure, unspecified; E11.9 Type 2 diabetes mellitus without complications; N39.0 Urinary tract infection, site not specified; R64 Cachexia; F03.90 Unspecified dementia, unspecified severity, without behavioral disturbance, psychotic disturbance, mood disturbance, and anxiety; E78.5 Hyperlipidemia, unspecified; E83.42 Hypomagnesemia; E83.52 Hypercalcemia; E87.6 Hypokalemia; R29.6 Repeated falls; R65.20 Severe sepsis without septic shock; F17.210 Nicotine dependence, cigarettes, uncomplicated; B96.5 Pseudomonas (aeruginosa) (mallei) (pseudomallei) as the cause of diseases classified elsewhere; Z79.899 Other long term (current) drug therapy; Z86.73 Personal history of transient ischemic attack (TIA), and cerebral infarction without residual deficits; Z79.84 Long term (current) use of oral hypoglycemic drugs; Z68.23 Body mass index [BMI] 23.0-23.9, adult; Z71.6 Tobacco abuse counseling
CPT/HCPCS: 36415; 51702; 70450; 71045; 80048; 80053; 80061; 80307; 81001; 82553; 82947; 83036; 83605; 83690; 83735; 83880; 84165; 84484; 85007; 85025; 85610; 87040; 87070; 87086; 87186; 87205; 87641; 87804; 93005; 93306; 94640; 96365; 96366; 96368; J0360; J2543; J3370; J3475; J7040; J7050; J7620; 97530; 99291-25; G0479; J7030

== ENCOUNTER 2017-06-11 14:28 | Inpatient (IN) | payer MEDICARE ==
[~2017-06-11] VITALS: Ht 157.5 cm; Wt 66.3 kg
[~2017-06-11 14:28] MED LIST: LISI40TA PO; METF100010 PO; METO50TA29 PO
--- NOTE | 2017-06-11 14:58 | EKG ---
[address] [address] Test Date: 2017-06-11 Test Time: 14:46:26 Pat Name: COLTON WEEMS Department: Room: Gender: F Spout Liner: : 1935 Requested By: CHAR WELLS Order Number: [id number] Reading MD: Calixto Hanson Measurements Intervals [place] Rate: 54 P: 47 NV: 178 QRS: -37 QRSD: 104 T: -22 QT: 466 QTc: 444 Interpretive Statements SINUS ARRHYTHMIA ABNORMAL LEFT AXIS DEVIATION LEFT VENTRICULAR HYPERTROPHY QRS(T) CONTOUR ABNORMALITY CONSIDER ANTEROLATERAL MYOCARDIAL DAMAGE T ABNORMALITY IN INFERIOR LEADS ABNORMAL ECG Electronically Signed On 06-26-2017 17:46:46 CDT by Calixto Hanson
[2017-06-11 15:05] LABS: BASO # 0.1 x10^3/uL (0.0-0.2); BASO % 1 % (0-3); EOS # 0.1 x10^3/uL (0.0-0.7); EOS % 1 % (0-3); HEMATOCRIT 33.7 % (36.0-47.0); HEMOGLOBIN 11.1 g/dL (12.0-15.5); LYMPH # 1.8 x10^3/uL (1.0-4.8); LYMPH % 16 % (24-48); MEAN CORPUSCULAR HEMOGLOBIN 29 pg (25-35); MEAN CORPUSCULAR HGB CONC 33 g/dL (31-37); MEAN CORPUSCULAR VOLUME 89 fL (79-100); MONO # 0.7 x10^3/uL (0.0-1.1); MONO % 6 % (0-9); NEUT % 77 % (31-73); PLATELET COUNT 426 x10^3/uL (140-400); RED CELL DISTRIBUTION WIDTH 16.8 % (11.5-14.5); WHITE BLOOD COUNT 11.7 x10^3/uL (4.0-11.0)
[2017-06-11 15:28] LABS: INFLUENZA A PATIENT NEGATIVE (NEGATIVE); INFLUENZA B PATIENT NEGATIVE (NEGATIVE)
--- NOTE | 2017-06-11 15:29 | RAD ---
Portable chest, 06/11/2017: History: Weakness Comparison is made to a study from 05/13/2017. The heart is at the upper limits of normal in size. There is calcific plaquing of the aorta. The pulmonary vascularity is normal. No pulmonary infiltrates are seen. There is no evidence of pleural fluid. IMPRESSION: No acute cardiopulmonary abnormality is detected.
--- NOTE | 2017-06-11 15:33 | RAD ---
CT head without contrast History: Generalized weakness. Comparison: 05/13/2017. Procedure: Axial images are obtained of the head from the skull base through the vertex without IV contrast. Findings: Examination is very limited due to significant motion artifact. Moderate age-related cerebral atrophic changes. Diffuse prominent bilateral moderate periventricular white matter hypodensities likely chronic small vessel ischemic disease.. No obvious midline shift The visualized paranasal sinuses appear clear. Impression: 1. Very limited examination due to significant motion artifact. Grossly no acute intracranial findings... PQRS Compliance Statement: One or more of the following individualized dose reduction techniques were utilized for this examination: 1. Automated exposure control 2. Adjustment of the mA and/or kV according to patient size 3. Use of iterative reconstruction technique
[2017-06-11 15:35] LABS: BACTERIA,URINE 0 /HPF (0-FEW); BILIRUBIN,URINE NEG (NEG); CLARITY,URINE HAZY; COLOR,URINE YELLOW; GLUCOSE,URINE NEG (NEG); NITRITE,URINE NEG (NEG); SQUAMOUS EPITHELIAL CELL,UR MOD /LPF; UROBILINOGEN,URINE 2 mg/dL (0.2 mg/dL)
[2017-06-11 16:56] LABS: ALBUMIN 2.4 g/dL (3.4-5.0); ALBUMIN/GLOBULIN RATIO 0.4 (1.0-1.7); CALCIUM 9.9 mg/dL (8.5-10.1); CREATININE 0.8 mg/dL (0.6-1.0); GFR 83.1; MAGNESIUM 1.9 mg/dL (1.8-2.4); POTASSIUM 4.6 mmol/L (3.5-5.1); TOTAL BILIRUBIN 0.5 mg/dL (0.2-1.0); TOTAL PROTEIN 7.8 g/dL (6.4-8.2)
--- NOTE | 2017-06-11 17:15 | PHYS DOC ---
Past History Past Medical History: CHF, Dementia, Diabetes, Hypertension Past Surgical History: No Surgical History Alcohol Use: None Drug Use: None Adult General Chief Complaint Chief Complaint: LOWER EXT PAIN HPI HPI 82-year-old female patient with history of dementia and resident of senior living brought in by ambulance because of increasing weakness. skilled nursing reported that patient showing sign of increasing pain and rubbing her left leg and complaining of pain in her buttock and is lethargic and complaining of being tired. Patient had decrease of appetite and not feeding herself. Patient unable to bear weight with transfers and questions and resisting with AM cares. Patient is not able to give history. Review of Systems Review of Systems Able to obtain because of dementia Allergies Allergies Allergies Coded Allergies Type Severity Reaction Last Updated Verified I S O L A T I O N *CONTACT* Allergy Unknown 05/14/17 Yes NKMA Allergy Unknown 05/14/17 Yes Physical Exam Physical Exam Constitutional: No acute distress, non-toxic appearance. [] HENT: Normocephalic, atraumatic, bilateral external ears normal, oropharynx moist, no oral exudates, nose normal. [] Eyes: PERRLA, EOMI, conjunctiva normal, no discharge. [] Neck: Normal range of motion, no tenderness, supple, no stridor. [] Cardiovascular:Heart rate regular rhythm, no murmur [] Lungs & Thorax: Bilateral breath sounds clear to auscultation [] Abdomen: Bowel sounds normal, soft, no tenderness, no masses, no pulsatile masses, Ruelas catheter in place. [] Skin: Warm, dry, no erythema, no rash, grade 1 pressure sore in presacral area without sign of infarction. [] Back: No tenderness, no CVA tenderness. [] Extremities: No tenderness, no cyanosis, no clubbing, ROM intact, no edema. [] Neurologic: Alert and oriented X 1, normal motor function, normal sensory function, no focal deficits noted. [] Psychologic: Unable to evaluate Current Patient Data Vital Signs Vital Signs Date Time Temp Pulse Resp B/P (MAP) Pulse Ox O2 Delivery O2 Flow Rate FiO2 06/11/17 15:34 54 16 129/71 (90) 95 Room Air 06/11/17 14:30 98.8 Lab Results Laboratory Tests Test 06/11/17 14:48 06/11/17 14:51 06/11/17 15:40 White Blood Count 11.7 x10^3/uL (4.0-11.0) H Red Blood Count 3.80 x10^6/uL (3.50-5.40) Hemoglobin 11.1 g/dL (12.0-15.5) L Hematocrit 33.7 % (36.0-47.0) L Mean Corpuscular Volume 89 fL (79-100) Mean Corpuscular Hemoglobin 29 pg (25-35) Mean Corpuscular Hemoglobin Concent 33 g/dL (31-37) Red Cell Distribution Width 16.8 % (11.5-14.5) H Platelet Count 426 x10^3/uL (140-400) #H Neutrophils (%) (Auto) 77 % (31-73) H Lymphocytes (%) (Auto) 16 % (24-48) L Monocytes (%) (Auto) 6 % (0-9) Eosinophils (%) (Auto) 1 % (0-3) Basophils (%) (Auto) 1 % (0-3) Neutrophils # (Auto) 9.0 x10^3uL (1.8-7.7) H Lymphocytes # (Auto) 1.8 x10^3/uL (1.0-4.8) Monocytes # (Auto) 0.7 x10^3/uL (0.0-1.1) Eosinophils # (Auto) 0.1 x10^3/uL (0.0-0.7) Basophils # (Auto) 0.1 x10^3/uL (0.0-0.2) Lactic Acid Level 1.7 mmol/L (0.4-2.0) Troponin I Quantitative < 0.017 ng/mL (0-0.055) Influenza Type A (Rapid) Negative (NEGATIVE) Influenza Type B (Rapid) Negative (NEGATIVE) Urine Collection Type Unknown Urine Color Yellow Urine Clarity Hazy Urine pH 5.5 Urine Specific [place] 1.020 Urine Protein Neg (NEG-TRACE) Urine Glucose (UA) Neg mg/dL (NEG) Urine Ketones (Stick) Neg mg/dL (NEG) Urine Blood Mod (NEG) Urine Nitrite Neg (NEG) Urine Bilirubin Neg (NEG) Urine Urobilinogen Dipstick 2 mg/dL (0.2 mg/dL) Urine Leukocyte Esterase Trace (NEG) Urine RBC 11-20 /HPF (0-2) Urine WBC 1-4 /HPF (0-4) Urine Squamous Epithelial Cells Mod /LPF Urine Bacteria 0 /HPF (0-FEW) Urine Mucus Slight /LPF Sodium Level 139 mmol/L (136-145) Potassium Level 4.6 mmol/L (3.5-5.1) Chloride Level 101 mmol/L (98-107) Carbon Dioxide Level 33 mmol/L (21-32) H Anion Gap 5 (6-14) L Blood Urea Nitrogen 15 mg/dL (7-20) Creatinine 0.8 mg/dL (0.6-1.0) Estimated GFR (Cockcroft-Gault) 83.1 BUN/Creatinine Ratio 19 (6-20) Glucose Level 131 mg/dL (70-99) H Calcium Level 9.9 mg/dL (8.5-10.1) Magnesium Level 1.9 mg/dL (1.8-2.4) Total Bilirubin 0.5 mg/dL (0.2-1.0) Aspartate Amino Transferase (AST) 98 U/L (15-37) H Alanine Aminotransferase (ALT) 84 U/L (14-59) H Alkaline Phosphatase 199 U/L (46-116) H Creatine Kinase 55 U/L (26-192) Creatine Kinase MB (Mass) 0.7 ng/mL (0.0-3.6) Creatine Kinase MB Relative Index 1.3 % (0-4) AN-Rzf-[id number]-Type Natriuretic Peptide 1913 pg/mL (0-449) H Total Protein 7.8 g/dL (6.4-8.2) Albumin 2.4 g/dL (3.4-5.0) L Albumin/Globulin Ratio 0.4 (1.0-1.7) L Lipase 41 U/L (73-393) L EKG EKG EKG interpreted by me. EKG at 1446 showed sinus tachycardia with rate of 54, left axis deviation, left ventricular hypertrophy, poor R wave progress in anteroseptal leads, no acute ST and T wave abnormality Radiology/Procedures Radiology/Procedures [] [address] [address] IMAGING REPORT Signed PATIENT: COLTON WEEMS ACCOUNT: [id number] : 1935 LOCATION: ER AGE: 82 SEX: F EXAM STATUS: REG ER ORD. PHYSICIAN: CHAR WELLS MD REASON: generalized weakness PROCEDURE: CT HEAD WO CONTRAST CT head without contrast History: Generalized weakness. Comparison: 05/13/2017. Procedure: Axial images are obtained of the head from the skull base through the vertex without IV contrast. Findings: Examination is very limited due to significant motion artifact. Moderate age-related cerebral atrophic changes. Diffuse prominent bilateral moderate periventricular white matter hypodensities likely chronic small vessel ischemic disease.. No obvious midline shift The visualized paranasal sinuses appear clear. Impression: 1. Very limited examination due to significant motion artifact. Grossly no acute intracranial findings... PQRS Compliance Statement: One or more of the following individualized dose reduction techniques were utilized for this examination: 1. Automated exposure control 2. Adjustment of the mA and/or kV according to patient size 3. Use of iterative reconstruction technique DICTATED AND SIGNED BY: ANISA STOCK MD DATE: 06/11/171525 CC: CHAR WELLS MD; PCP,NO ~ [place] [id number] IMAGING REPORT Signed PATIENT: COLTON WEEMS ACCOUNT: [id number] : 1935 LOCATION: ER AGE: 82 SEX: F EXAM STATUS: REG ER ORD. PHYSICIAN: CHAR WELLS MD REASON: generalized weakness PROCEDURE: PORTABLE CHEST 1V Portable chest, 06/11/2017: History: Weakness Comparison is made to a study from 05/13/2017. The heart is at the upper limits of normal in size. There is calcific plaquing of the aorta. The pulmonary vascularity is normal. No pulmonary infiltrates are seen. There is no evidence of pleural fluid. IMPRESSION: No acute cardiopulmonary abnormality is detected. DICTATED AND SIGNED BY: ADELIA SILVA MD DATE: 06/11/171525 CC: CHAR WELLS MD; PCP,NO ~ Course & Med Decision Making Course & Med Decision Making Pertinent Labs and Imaging studies reviewed. (See chart for details) Evaluation of patient in ER showed 82-year-old female patient with history of dementia sent from senior living with decrease of mental status and complaining of pain in left leg. Patient able to bend her knees without problem, she had hematuria with indwelling Ruelas catheter. CT head and labs was unremarkable except for mild anemia. Venous Doppler study of left leg is pending. Dr. uBrnett accepted admission at 1640. Dragon Disclaimer Dragon Disclaimer This electronic medical record was generated, in whole or in part, using a voice recognition dictation system. Departure Departure: Impression: Primary Impression: Generalized weakness Additional Impressions: Dementia Anemia Extremity pain Disposition: ADMITTED INPATIENT (At 1643) Admitting Physician: Erika Burnett Condition: STABLE Referrals: PCP,NO (PCP) Problem Qualifiers CHAR WELLS MD Jun 11, 2017 17:15
--- NOTE | 2017-06-11 17:31 | RAD ---
Ultrasound venous Doppler INDICATION: Left leg pain. TECHNIQUE: Grayscale, color Doppler and spectral waveform ultrasound images of the left lower extremity deep veins obtained. COMPARISON: None FINDINGS: Technically difficult exam due to patient uncooperation secondary to inability to communicate. Calf veins not evaluated. The interrogated deep veins are compressible and demonstrate evidence of blood flow with normal respiratory variation and response to augmentation. IMPRESSION: No sonographic evidence of acute DVT of the interrogated lower extremity deep veins. Unable to evaluate calf veins due to technical difficulty secondary to inability to uncross legs. Electronically signed by: Ramón Laughlin DO (06/11/2017 5:28 PM) [facility]
[2017-06-11 18:51] VITALS: BP 164/77
[2017-06-11] MEDS ORDERED: METO50TA6 PO (19:36)
[2017-06-11] MEDS ORDERED: ACET325T9 PO (19:36)
[2017-06-11] MEDS ORDERED: HYDR-2868 PO (19:36)
[2017-06-11] MEDS ORDERED: ASPI-630 PO (19:36)
[2017-06-11] MEDS ORDERED: MEMA10TA PO (19:36)
[2017-06-11] MEDS ORDERED: ACET-704 PO (19:36)
[2017-06-11] MEDS ORDERED: NYST60PO TP (19:36)
[2017-06-11] MEDS ORDERED: POTA10TA10 PO (19:36)
[2017-06-11] MEDS ORDERED: MULT1TAB52 PO (19:36)
[2017-06-11] MEDS ORDERED: ACETAMINOPHEN 325 MG TABLET PO PRN ×2 (20:00→20:45)
[2017-06-11] MEDS: NYSTATIN TOPICAL POWDER 15GM BOTTLE. TP SCH (21:00)
[2017-06-11] MEDS ORDERED: POTASSIUM CHLORIDE 20 MEQ TABLET.ER. PO SCH (21:00)
[2017-06-11] MEDS ORDERED: MVI, ADULT NO.4 WITH VIT K 10 ML, FOLIC ACID 1 MG, THIAMINE 100 MG in IV DEXTROSE 5 %-0... IV SCH ×4 (21:00)
[2017-06-11] MEDS: hydrALAZINE 25 MG TABLET PO SCH (21:16)
[2017-06-11] MEDS: POTASSIUM CHLORIDE 20 MEQ/15 ML ORAL LIQUID. PO SCH (21:16)
[2017-06-11] MEDS: METOPROLOL TART IMMED RELEASE 50 MG TABLET PO SCH (21:16)
[2017-06-12 00:05] VITALS: BP 142/67
[2017-06-12 05:54] VITALS: BP 164/63
[2017-06-12 06:24] LABS: BASO # 0.1 x10^3/uL (0.0-0.2); BASO % 1 % (0-3); EOS # 0.1 x10^3/uL (0.0-0.7); EOS % 0 % (0-3); HEMATOCRIT 29.7 % (36.0-47.0); HEMOGLOBIN 9.7 g/dL (12.0-15.5); LYMPH # 2.7 x10^3/uL (1.0-4.8); LYMPH % 23 % (24-48); MEAN CORPUSCULAR HEMOGLOBIN 29 pg (25-35); MEAN CORPUSCULAR HGB CONC 33 g/dL (31-37); MEAN CORPUSCULAR VOLUME 89 fL (79-100); MONO % 8 % (0-9); NEUT # 7.9 x10^3uL (1.8-7.7); NEUT % 68 % (31-73); PLATELET COUNT 398 x10^3/uL (140-400); RED BLOOD COUNT 3.35 x10^6/uL (3.50-5.40); RED CELL DISTRIBUTION WIDTH 16.9 % (11.5-14.5); WHITE BLOOD COUNT 11.8 x10^3/uL (4.0-11.0)
[2017-06-12 06:36] LABS: ALBUMIN 1.9 g/dL (3.4-5.0); ALBUMIN/GLOBULIN RATIO 0.4 (1.0-1.7); CALCIUM 9.4 mg/dL (8.5-10.1); CREATININE 0.7 mg/dL (0.6-1.0); GFR 96.9; MAGNESIUM 1.7 mg/dL (1.8-2.4); POTASSIUM 4.1 mmol/L (3.5-5.1); TOTAL BILIRUBIN 0.4 mg/dL (0.2-1.0); TOTAL PROTEIN 6.7 g/dL (6.4-8.2)
[2017-06-12] MEDS: ASPIRIN 81 MG TAB.CHEW PO SCH (08:23)
[2017-06-12] MEDS: METOPROLOL TART IMMED RELEASE 50 MG TABLET PO SCH ×2 (08:23→20:46)
[2017-06-12] MEDS: hydrALAZINE 25 MG TABLET PO SCH ×2 (08:23→20:46)
[2017-06-12] MEDS: POTASSIUM CHLORIDE 20 MEQ/15 ML ORAL LIQUID. PO SCH ×3 (08:24→20:46)
[2017-06-12] MEDS: NYSTATIN TOPICAL POWDER 15GM BOTTLE. TP SCH ×2 (08:25→20:47)
[2017-06-12] MEDS ORDERED: MEMANTINE 10 MG TABLET. PO SCH (09:00)
[2017-06-12 09:59] VITALS: BP 152/54
[2017-06-12 14:29] VITALS: BP 160/70
[2017-06-12] MEDS: IV NORMAL SALINE 1,000ML 1,000 ML IV SCH (14:45)
--- NOTE | 2017-06-12 15:04 | HP ---
ADMIT DATE: 06/12/2017 HISTORY OF PRESENT ILLNESS: The patient is an 82-year-old -Trist[place] female patient, a resident at [facility] and [facility], who was noted by the nursing staff to be increasingly weak, lethargic, complaining of being tired, has decreased appetite, not eating. The patient is unable to bear weight with transfers and questions resistance with care. She is unable to give any useful history and was transferred to the Emergency Room of [facility] where she was extensively investigated. She did have a CT scan of the head, which was a very limited exam due to significant motion artifact, but grossly there was no evidence of acute intracranial finding. Her chest x-ray was unremarkable and her Doppler ultrasound of both lower extremities showed no sonographic evidence of acute DVT of the interrogated lower extremity deep vein. LABORATORY WORK: Showed slightly elevated liver enzymes. Urinalysis was negative for nitrite, trace of leukocyte, was only 1-4 wbc's, no bacteria. Her influenza A and B were negative. She was basically admitted to continue with IV fluid and to monitor her closely and decide on further management accordingly. PAST MEDICAL HISTORY: Significant for hypertension, hyperlipidemia and type 2 diabetes for which she is on oral hypoglycemic agent. PAST SURGICAL HISTORY: Unremarkable. FAMILY HISTORY: Unremarkable. SOCIAL HISTORY: Lives with her granddaughter. She apparently does not smoke, drink alcohol or recreational drugs. According to her daughter before, she was able to walk and actually even climb stairs, although she has not done that here when her last admission to the [facility] or while at [facility] and [facility]. REVIEW OF SYSTEMS: Unobtainable. ALLERGIES: She has no known drug allergies. MEDICATIONS: She is currently on following medications: She is on Tylenol 650 mg every 6 hours as needed, aspirin 81 mg once a day, hydralazine 25 mg twice a day, Namenda 5 mg daily, metoprolol tartrate 50 mg twice a day, multivitamin 1 tablet once a day, Nystatin powder apply topically twice a day, and potassium chloride 20 mEq 3 times a day. PHYSICAL EXAMINATION: GENERAL: On arrival to the Emergency Room, she apparently was lethargic, but arousable, pale, cachectic, no jaundice, cyanosis, or thyromegaly. No jugular venous distension. No limb edema. VITAL SIGNS: Heart rate was 63, blood pressure was 129/71, temperature was 98.8, respiratory rate was 16, and oxygen saturation was 98%. HEAD, EYES, EARS, NOSE AND THROAT: Showed normocephalic, atraumatic. NECK: Supple. HEART: Showed normal first and second heart sounds. No gallop, rub or murmur. CHEST: Clear to auscultation. No crepitation or rhonchi. ABDOMEN: Distended, soft, nontender. No guarding or rigidity. No organomegaly. Hernial orifice intact. Bowel sounds normal. NEUROLOGIC: She is awake, alert, opens eyes, tracks but does not sometimes. She is not even nonverbal. All her cranial nerves seem to be grossly intact. She moves extremities spontaneously; however, she is mostly bedbound. LABORATORY DATA: Her lab work on admission showed a white cell count of 11,700, hemoglobin 11, hematocrit 33, MCV 89 and platelet count of 166,000 with normal manual differential. Her prothrombin time was 11.8, INR of 1.2. Her serum sodium was 139, potassium 4.6, chloride 101, bicarbonate 33, anion gap of 5. BUN 15, creatinine 0.8, estimated GFR was 83 mL per minute. Her glucose 131, calcium was 9.9, magnesium was 1.9. Total bilirubin normal; however, AST, ALT, alkaline phosphatase are elevated. Her BNP was 1913, total protein was 7.8, albumin 2.4. Serum lipase was 41. Urinalysis showed the urine was yellow, hazy with a pH of 5.5, specific gravity of 1.020. The urine was negative for protein, glucose, ketones, blood and bilirubin. There was a trace of leukocyte esterase. There were 11-20 rbc's, 1-4 wbc's, and no bacteria. Her influenza A and B were negative. As stated her CT scan of the head showed moderate age-related cerebral atrophic changes, diffuse prominent bilateral moderate periventricular white matter hypodensities, likely chronic small vessel disease. No obvious midline shift. The visualized paranasal sinuses appeared clear. Her chest x-ray showed the heart is at the upper limit of normal. There is calcific plaquing of the aorta. The pulmonary vascularity is normal. No pulmonary infiltrates are seen. There is no evidence of pleural effusion and Doppler ultrasound of both lower extremities showed no evidence of acute DVT in the interrogated lower extremity veins. So the patient was admitted with basically generalized weakness, anemia, and dehydration. She was started on IV fluid. She was started recently on Namenda and whether that has contributed to her altered mental status is possible. We will follow her lab work. We will consult the physical and occupational therapy to evaluate and treat. ASPEN FLOWER MD DR: JOCELYN/antonio JOB#: [id number] / [id number]
[2017-06-12 19:00] VITALS: BP 156/97
[2017-06-12 23:00] VITALS: BP 176/82
[2017-06-13 05:00] VITALS: BP 176/81
[2017-06-13] MEDS: IV NORMAL SALINE 1,000ML 1,000 ML IV SCH (05:15)
--- NOTE | 2017-06-13 06:47 | PN ---
DATE: 06/12/2017 SUBJECTIVE: The patient is sitting comfortably in her chair, in no apparent distress. She is awake, alert. She opens eyes, tracks and responds occasionally verbally. She moves her extremities spontaneously, although she is mostly bedbound, chair bound. OBJECTIVE: GENERAL: When I examined her, she looked pale, but no jaundice, cyanosis, lymphadenopathy, or thyromegaly. No jugular venous distension. No limb edema. VITAL SIGNS: Her heart rate was 77, blood pressure 164/77, temperature was 97.7, respiratory rate 20, and oxygen saturation was 96% on room air. HEENT: Showed normocephalic, atraumatic. NECK: Supple. HEART: Showed normal first and second heart sounds with no gallop, rub or murmur. CHEST: Clear to auscultation. No crepitation or rhonchi. ABDOMEN: Distended, soft, nontender. NEUROLOGIC: She is awake, alert, but very lethargic. She does open her eyes, tracks, follows all commands occasionally. She moves her extremities without difficulty, but she is definitely very weak. She is mostly bedbound, chair bound. Her intake over the last 24 hours was 1000, output was 750. LABORATORY DATA: As of this morning showed a white cell count continued to be high at 11,800, hemoglobin 9.7, hematocrit 29.7, MCV 89 and platelet count of 398,000. Her chemistry showed a serum sodium 136, potassium 4.1, chloride 101, bicarbonate 28, anion gap of 7, BUN 12, creatinine 0.7, estimated GFR was 97 mL per minute. Her glucose 114, calcium was 9.4, magnesium was 1.7. Total bilirubin, AST, ALT, alkaline phosphatase are elevated, although trending down. Her total protein was 6.7, albumin was 1.9. ASSESSMENT: This is an 82-year-old -Monegas[place] female patient with unremarkable lab work, all her imaging studies were unremarkable. She was brought in here with generalized weakness, dementia, mild normochromic normocytic anemia, mild leukocytosis. Her serology for influenza A and B were negative. Urinalysis was unremarkable. Her liver enzymes are slightly elevated, although they are trending down. PLAN: My plan is to continue with IV fluid, continue with all her medication except the Namenda and that might be the reason for her lethargy and somnolence. I will repeat all her lab work including her CBC, comprehensive metabolic profile, lead, ammonia, C-reactive protein, sedimentation rate and CK, and continue meanwhile with IV fluid and physical and occupational therapy. ASPEN FLOWER MD DR: JOCELYN/antonio JOB#: [id number] / [id number]
[2017-06-13 06:56] LABS: HEMATOCRIT 33.8 % (36.0-47.0); HEMOGLOBIN 10.9 g/dL (12.0-15.5); RED BLOOD COUNT 3.81 x10^6/uL (3.50-5.40); RED CELL DISTRIBUTION WIDTH 16.6 % (11.5-14.5)
[2017-06-13 07:15] LABS: CALCIUM 9.8 mg/dL (8.5-10.1); CREATININE 0.6 mg/dL (0.6-1.0); GFR 115.8; POTASSIUM 4.4 mmol/L (3.5-5.1)
[2017-06-13] MEDS: NYSTATIN TOPICAL POWDER 15GM BOTTLE. TP SCH ×2 (09:00→21:00)
[2017-06-13] MEDS: hydrALAZINE 25 MG TABLET PO SCH ×2 (09:45→21:00)
[2017-06-13] MEDS: ASPIRIN 81 MG TAB.CHEW PO SCH (09:45)
[2017-06-13] MEDS: METOPROLOL TART IMMED RELEASE 50 MG TABLET PO SCH ×2 (09:45→21:00)
[2017-06-13] MEDS: MULTIVITAMIN with MINERAL TABLET. PO SCH (09:45)
[2017-06-13] MEDS: POTASSIUM CHLORIDE 20 MEQ/15 ML ORAL LIQUID. PO SCH ×3 (09:46→21:00)
[2017-06-13 10:54] VITALS: BP 176/81
[2017-06-13] MEDS ORDERED: methylPREDNISolone SOD SUCC PF 40 MG/ML VIAL. IV ONE (15:30)
[2017-06-13 16:14] VITALS: BP 170/77
[2017-06-13 19:00] VITALS: BP 152/86
[2017-06-13 23:02] VITALS: BP 148/71
--- NOTE | 2017-06-13 23:06 | PN ---
DATE: 06/13/2017 SUBJECTIVE: The patient is resting, slightly propped up, sleeping comfortably, in no apparent distress. She is arousable. On questioning here, she denied any pain, denied any weakness; however, she took 2-person assist to get her out of the bed to wheelchair. Nursing staff said she refused her breakfast. She was fed her lunch this afternoon. So far, she remained afebrile and hemodynamically stable. LABORATORY AND DIAGNOSTIC DATA: I did extensive lab work on her. Her white cell count is slightly high; however, sed rate and C-reactive protein is also high and in fact, her C-reactive protein was 111 mg/dL. C-reactive protein was 73 mm per hour. Her creatine kinase was only 31. Her CT scan of the head, chest x-ray and Doppler ultrasound of both lower extremities were unremarkable. PLAN: My plan is to given that her kidney function is normal and her creatinine is down to 0.6 mg, I will stop the IV fluid as her blood pressure is trending upward and I am not sure whether this is a case of polymyalgia rheumatica. I will try steroids and see if that will make any difference to her. ASPEN FLOWER MD DR: JOCELYN/antonio JOB#: [id number] / [id number]
[2017-06-14 05:00] VITALS: BP 159/76
[2017-06-14 06:21] LABS: HEMOGLOBIN 10.2 g/dL (12.0-15.5); RED BLOOD COUNT 3.52 x10^6/uL (3.50-5.40); RED CELL DISTRIBUTION WIDTH 16.6 % (11.5-14.5); WHITE BLOOD COUNT 12.4 x10^3/uL (4.0-11.0)
[2017-06-14 06:34] LABS: CALCIUM 10.2 mg/dL (8.5-10.1); CREATININE 0.6 mg/dL (0.6-1.0); GFR 115.8; POTASSIUM 4.1 mmol/L (3.5-5.1)
[2017-06-14] MEDS: hydrALAZINE 25 MG TABLET PO SCH ×2 (08:24→20:32)
[2017-06-14] MEDS: MULTIVITAMIN with MINERAL TABLET. PO SCH (08:24)
[2017-06-14] MEDS: METOPROLOL TART IMMED RELEASE 50 MG TABLET PO SCH ×2 (08:25→20:32)
[2017-06-14] MEDS: ASPIRIN 81 MG TAB.CHEW PO SCH (08:25)
[2017-06-14] MEDS: POTASSIUM CHLORIDE 20 MEQ/15 ML ORAL LIQUID. PO SCH ×3 (08:25→20:31)
[2017-06-14] MEDS: NYSTATIN TOPICAL POWDER 15GM BOTTLE. TP SCH (08:26)
[2017-06-14 10:59] VITALS: BP 158/71
[2017-06-14 14:27] VITALS: BP 167/70
[2017-06-14] MEDS ORDERED: methylPREDNISolone SOD SUCC PF 40 MG/ML VIAL. IV ONE (16:00)
[2017-06-14] MEDS: IV NORMAL SALINE 1,000ML 1,000 ML IV SCH (16:50)
[2017-06-14 19:16] VITALS: BP 171/72
[2017-06-14] MEDS: MAGNESIUM OXIDE 400 MG TABLET PO SCH (20:32)
--- NOTE | 2017-06-14 20:49 | PN ---
DATE: 06/14/2017 SUBJECTIVE: The patient is sitting on the edge of the bed comfortably, in no apparent distress. She is definitely more awake, alert, responding appropriately, more talkative today. She was actually willing to walk and she did walk with the assistance of two persons with a walker, very slowly with a lot of prompting; however, at least this is the first time I have ever seen her walking. We did start her on steroids yesterday for possible polymyalgia rheumatica. PHYSICAL EXAMINATION: GENERAL: When I saw her today, she looked pale, but no jaundice, cyanosis, or thyromegaly. No jugular venous distension. No lower limb edema. VITAL SIGNS: Her heart rate was 65, blood pressure 167/70, temperature was 98, respiratory rate 20, and oxygen saturation was 96% on room air. HEAD, EYES, EARS, NOSE AND THROAT: Showed normocephalic, atraumatic. NECK: Supple. HEART: Showed normal first and second heart sounds with no gallop, rub or murmur. CHEST: Clear to auscultation. No crepitation or rhonchi. ABDOMEN: Distended, soft, and nontender. No guarding or rigidity. No organomegaly. Hernial orifice intact. Bowel sounds normal. NEUROLOGIC: She was definitely more awake, alert, responding appropriately. All her cranial nerves intact. She moves extremities without difficulty. Her intake over the last 24 hours was 1942, output was 3150. LABORATORY DATA: This morning showed a serum sodium 137, potassium 4.1, chloride 102, bicarbonate 27, anion gap of 8, BUN 11, creatinine 0.6, estimated GFR was 115 mL per minute. Her glucose was 149, calcium was 10.2. Her white cell count was 12,400, hemoglobin 10.2, hematocrit 31, MCV 88, and platelet count of 484,000. Her sed rate was 73 mm per hour and her C-reactive protein was 111 mg/dL. ASSESSMENT: 1. Altered mental status, slowly improving. 2. Generalized weakness. 3. Dementia. 4. Mild normochromic normocytic anemia. 5. Hypercalcemia, in fact her calcium probably has been elevated and today, , corrected the albumin is probably much higher than that. PLAN: My plan is to continue with intravenous antibiotic. Continue with steroids. I will check her intact PTH and serum phosphorus and also check her magnesium and we will decide the further management accordingly. ASPEN FLOWER MD DR: JOCELYN/antonio JOB#: [id number] / [id number]
[2017-06-14 23:05] VITALS: BP 170/72
[2017-06-15 05:29] VITALS: BP 187/82
[2017-06-15] MEDS: IV NORMAL SALINE 1,000ML 1,000 ML IV SCH ×2 (06:50→19:48)
[2017-06-15] MEDS: NYSTATIN TOPICAL POWDER 15GM BOTTLE. TP SCH ×3 (06:51→19:50)
[2017-06-15 07:46] LABS: HEMATOCRIT 30.4 % (36.0-47.0); HEMOGLOBIN 10.1 g/dL (12.0-15.5); RED BLOOD COUNT 3.45 x10^6/uL (3.50-5.40); RED CELL DISTRIBUTION WIDTH 16.8 % (11.5-14.5); WHITE BLOOD COUNT 9.7 x10^3/uL (4.0-11.0)
[2017-06-15 07:53] LABS: ALBUMIN 2.2 g/dL (3.4-5.0); ALBUMIN/GLOBULIN RATIO 0.4 (1.0-1.7); CREATININE 0.6 mg/dL (0.6-1.0); GFR 115.8; MAGNESIUM 1.9 mg/dL (1.8-2.4); PHOSPHORUS 3.7 mg/dL (2.6-4.7); POTASSIUM 4.5 mmol/L (3.5-5.1); TOTAL BILIRUBIN 0.2 mg/dL (0.2-1.0); TOTAL PROTEIN 7.8 g/dL (6.4-8.2)
[2017-06-15] MEDS: methylPREDNISolone SOD SUCC PF 40 MG/ML VIAL. IV SCH (08:28)
[2017-06-15] MEDS: ASPIRIN 81 MG TAB.CHEW PO SCH (08:29)
[2017-06-15] MEDS: METOPROLOL TART IMMED RELEASE 50 MG TABLET PO SCH ×2 (08:29→19:47)
[2017-06-15] MEDS: MULTIVITAMIN with MINERAL TABLET. PO SCH (08:29)
[2017-06-15] MEDS: MAGNESIUM OXIDE 400 MG TABLET PO SCH ×3 (08:30→19:47)
[2017-06-15] MEDS: POTASSIUM CHLORIDE 20 MEQ/15 ML ORAL LIQUID. PO SCH ×3 (08:30→19:48)
[2017-06-15] MEDS: hydrALAZINE 25 MG TABLET PO SCH (08:30)
[2017-06-15 11:19] VITALS: BP 173/78
[2017-06-15 14:31] VITALS: BP 146/64
[2017-06-15 16:13] LABS: CALCIUM 9.4 mg/dL (8.5-10.1); CREATININE 0.7 mg/dL (0.6-1.0); GFR 96.9; MAGNESIUM 1.9 mg/dL (1.8-2.4); POTASSIUM 4.8 mmol/L (3.5-5.1)
[2017-06-15 19:38] VITALS: BP 157/69
--- NOTE | 2017-06-15 21:30 | PDOC ---
Exam Note: Alfred Note: Please also refer to the separate dictated note~for this date of service dictated separately.~Patient seen individually. Discussed the patient with Nursing staff reviewed the chart.~Reviewed interim history and current functioning. Reviewed vital signs,~Labs/ Radiology~and current medications noted below. Continue current treatment with the changes noted in the dictated addendum note Assessment: Vital Signs: Vital Signs Date Time Temp Pulse Resp B/P (MAP) Pulse Ox O2 Delivery O2 Flow Rate FiO2 06/15/17 20:51 Room Air 06/15/17 19:47 79 157/69 06/15/17 19:38 98.1 18 100 I&O Intake and Output 06/15/17 07:00 Intake Total 1560 ml Output Total 1000 ml Balance 560 ml Intake Oral 1560 ml Output Urine Total 1000 ml # Bowel Movements 1 Labs: Laboratory Tests Test 06/15/17 06:50 06/15/17 14:50 White Blood Count 9.7 x10^3/uL (4.0-11.0) Red Blood Count 3.45 x10^6/uL (3.50-5.40) L Hemoglobin 10.1 g/dL (12.0-15.5) L Hematocrit 30.4 % (36.0-47.0) L Mean Corpuscular Volume 88 fL (79-100) Mean Corpuscular Hemoglobin 29 pg (25-35) Mean Corpuscular Hemoglobin Concent 33 g/dL (31-37) Red Cell Distribution Width 16.8 % (11.5-14.5) H Platelet Count 535 x10^3/uL (140-400) H Sodium Level 140 mmol/L (136-145) 137 mmol/L (136-145) Potassium Level 4.5 mmol/L (3.5-5.1) 4.8 mmol/L (3.5-5.1) Chloride Level 104 mmol/L (98-107) 105 mmol/L (98-107) Carbon Dioxide Level 27 mmol/L (21-32) 24 mmol/L (21-32) Anion Gap 9 (6-14) 8 (6-14) Blood Urea Nitrogen 15 mg/dL (7-20) 18 mg/dL (7-20) Creatinine 0.6 mg/dL (0.6-1.0) 0.7 mg/dL (0.6-1.0) Estimated GFR (Cockcroft-Gault) 115.8 96.9 BUN/Creatinine Ratio 25 (6-20) H Glucose Level 131 mg/dL (70-99) H 211 mg/dL (70-99) H Calcium Level 10.0 mg/dL (8.5-10.1) 9.4 mg/dL (8.5-10.1) Phosphorus Level 3.7 mg/dL (2.6-4.7) Magnesium Level 1.9 mg/dL (1.8-2.4) 1.9 mg/dL (1.8-2.4) Total Bilirubin 0.2 mg/dL (0.2-1.0) Aspartate Amino Transferase (AST) 25 U/L (15-37) Alanine Aminotransferase (ALT) 35 U/L (14-59) Alkaline Phosphatase 133 U/L (46-116) H Total Protein 7.8 g/dL (6.4-8.2) Albumin 2.2 g/dL (3.4-5.0) L Albumin/Globulin Ratio 0.4 (1.0-1.7) L Current Medications: Meds: Current Medications Acetaminophen (Tylenol) 650 mg PRN Q6HRS PRN PO PAIN / TEMP; Start 06/11/17 at 20:00; Stop 06/11/17 at 20:42; Status DC Acetaminophen (Tylenol) 650 mg PRN Q6HRS PRN PO PAIN / TEMP; Start 06/11/17 at 20:45 Aspirin (Children'S Aspirin) 81 mg DAILY PO Last administered on 06/15/17at 08:29 ; Start 06/12/17 at 09:00 Hydralazine HCl (Apresoline) 25 mg BID PO Last administered on 06/15/17at 08:30; Start 06/11/17 at 21:00; Stop 06/15/17 at 11:44; Status DC Memantine (Namenda) 5 mg DAILY PO ; Start 06/12/17 at 09:00; Stop 06/12/17 at 09: 00; Status DC Metoprolol Tartrate (Lopressor) 50 mg BID PO Last administered on 06/15/17at 19: 47; Start 06/11/17 at 21:00 Nystatin (Nystop) 1 amanda BID TP Last administered on 06/15/17 08:33; Start 06/11 at 21:00 Potassium Chloride (Klor-Con) 20 meq TID PO ; Start 06/11/17 at 21:00; Stop at 21:00; Status DC Multivitamins/ Minerals 10 ml/ Folic Acid 1 mg/ Thiamine HCl 100 mg/Dextrose/ Sodium Chloride 1,011.2 ml @ 100.009 mls/hr DAILY IV Last administered on 06/11at 22:01; Start 06/11/17 at 21:00; Stop 06/13/17 at 07:15; Status DC Potassium Chloride (KCl Oral Soln) 20 meq TID PO Last administered on 06/15/17 19:48; Start 06/11/17 at 21:00 Sodium Chloride 1,000 ml @ 75 mls/hr [id number] IV Last administered on 06/13/17 05:15; Start 06/12/17 at 14:45; Stop 06/13/17 at 15:18; Status DC Multivitamins/ Calcium (Thera-M Plus) 1 tab DAILY PO Last administered on 08:29; Start 06/13/17 at 09:00 Methylprednisolone Sodium Succinate (SOLU-Medrol 40MG VIAL) 40 mg 1X ONCE IV Last administered on 06/13/17at 15:44; Start 06/13/17 at 15:30; Stop 06/13/17 at 15: 31; Status DC Methylprednisolone Sodium Succinate (SOLU-Medrol 40MG VIAL) 40 mg DAILY IV Last administered on 06/15/17 08:28; Start 06/15/17 at 09:00 Methylprednisolone Sodium Succinate (SOLU-Medrol 40MG VIAL) 40 mg 1X ONCE IV Last administered on 06/14/17 17:34; Start 06/14/17 at 16:00; Stop 06/14/17 at 16: 01; Status DC Sodium Chloride 1,000 ml @ 75 mls/hr [id number] IV Last administered on 06/15/17 19:48; Start 06/14/17 at 16:00 Magnesium Oxide (Magnesium Oxide) 400 mg TID PO Last administered on 06/15/17 19:47; Start 06/14/17 at 21:00 Hydralazine HCl (Apresoline) 50 mg TID PO Last administered on 06/15/17at 19:47; Start 06/15/17 at 12:00 Active Scripts Active Reported Potassium Chloride 10 Meq Tablet.er 20 Meq PO TID LAST DOSE GIVEN: DATE: TODAY TIME: AM NEXT DOSE DUE: DATE: TIME: Namenda (Memantine Hcl) 10 Mg Tablet 5 Mg PO DAILY LAST DOSE GIVEN: DATE: TIME: NEXT DOSE DUE: DATE: TIME: Tylenol With Codeine #3 Tablet (Acetaminophen With Codeine) 1 Each Tablet 1 Each PO PRN Q6HRS PRN LAST DOSE GIVEN: NOT GIVEN IN THE HOSPITAL NEXT DOSE DUE: DATE: TIME: Tylenol (Acetaminophen) 325 Mg Tablet 650 Mg PO PRN Q6HRS PRN LAST DOSE GIVEN: DATE: TIME: NEXT DOSE DUE: DATE: TIME: Metoprolol Tartrate 50 Mg Tablet 50 Mg PO BID LAST DOSE GIVEN: DATE: TIME: AM NEXT DOSE DUE: DATE: TIME: PM Nystop (Nystatin) 60 Gm Powder 60 Gm TP BID LAST DOSE GIVEN: DATE: TIME: AM NEXT DOSE DUE: DATE: TIME: PM Multivitamins (Multivitamin) 1 Each Tablet 1 Each PO DAILY LAST DOSE GIVEN: DATE: TIME: AM NEXT DOSE DUE: DATE: TOMORROW TIME: AM Hydralazine Hcl 25 Mg Tablet 25 Mg PO BID LAST DOSE GIVEN: DATE: TIME: AM NEXT DOSE DUE: DATE: TIME: PM Aspirin 81 Mg Tab.chew 81 Mg PO DAILY LAST DOSE GIVEN: DATE: TIME: AM NEXT DOSE DUE: DATE: TOMORR TIME: AM I have reviewed the current psychotropics carefully including drug interactions. Risk benefit ratio favors no change other than as noted in my dictated progress note. Diagnosis: Problems: (1) Anxiety disorder (2) Dementia in Alzheimer's disease with delusions (3) Dementia in Alzheimer's disease with depression (4) Dementia, vascular, with delusions (5) Dementia, vascular, with depression (6) Impulse control disorder (7) Dementia MINE LUKE MD Jun 15, 2017 21:30
[2017-06-15 23:00] VITALS: BP 170/78
[2017-06-16 06:07] VITALS: BP 148/68
[2017-06-16] MEDS: IV NORMAL SALINE 1,000ML 1,000 ML IV SCH (08:00)
[2017-06-16] MEDS: methylPREDNISolone SOD SUCC PF 40 MG/ML VIAL. IV SCH (08:57)
[2017-06-16] MEDS: MAGNESIUM OXIDE 400 MG TABLET PO SCH ×2 (08:57→13:14)
[2017-06-16] MEDS: ASPIRIN 81 MG TAB.CHEW PO SCH (08:57)
[2017-06-16] MEDS: MULTIVITAMIN with MINERAL TABLET. PO SCH (08:57)
[2017-06-16] MEDS: POTASSIUM CHLORIDE 20 MEQ/15 ML ORAL LIQUID. PO SCH ×2 (08:57→13:11)
[2017-06-16] MEDS: METOPROLOL TART IMMED RELEASE 50 MG TABLET PO SCH (08:57)
[2017-06-16] MEDS: NYSTATIN TOPICAL POWDER 15GM BOTTLE. TP SCH (08:58)
--- NOTE | 2017-06-16 09:47 | PN ---
DATE: 06/15/2017 SUBJECTIVE: The patient is resting slightly propped up in bed, in no apparent distress. She is awake, alert, responding appropriately. Her blood pressure was high this morning and we increase her hydralazine to better control. Apparently, she did actually walk with a walker yesterday with 2-person assist. She definitely is more awake and talkative than I have ever seen her before. Her calcium was high yesterday. She will continue with IV normal saline at 75 mL per hour. Her inflammatory markers are extremely high also and I did start her on steroids. Whether the response is to the steroids or the lowering of the calcium, I am not really sure, but she definitely looks more awake and more responsive; however, her mobility is still extremely poor and I do not think she is a candidate to go home or any other facility except long-term care at least as she is now. PHYSICAL EXAMINATION: GENERAL: When I examined her, she looked well and was clearly in no apparent respiratory distress, pale, but no jaundice, cyanosis or thyromegaly. No jugular venous distention. No limb edema. VITAL SIGNS: Her heart rate was 56, blood pressure 173/78, temperature was 97.8, respiratory rate 20, and oxygen saturation was 99% on room air. HEAD, EYES, EARS, NOSE AND THROAT: Showed normocephalic, atraumatic. NECK: Supple. HEART: Showed normal first and second heart sounds. No gallop, rub or murmur. CHEST: Clear to auscultation. No crepitation or rhonchi. ABDOMEN: Distended, ____ , soft, nontender. NEUROLOGIC: She is definitely more awake, alert, responding appropriately. All her cranial nerves are intact. She moves extremities without difficulty, though she is mostly bedbound and chair bound. Her intake over the last 24 hours was 1560, output was 1000. LABORATORY DATA: As of this morning showed a serum sodium 140, potassium 4.5, chloride 104, bicarbonate 27, anion gap of 9, BUN 15, creatinine 0.8, estimated GFR was 115 mL per minute. Her glucose was 131, calcium was 10, phosphorus 3.7, magnesium was 1.9. Total bilirubin, AST, ALT normal. Her alkaline phosphatase is slightly elevated. Her total protein was 7.8, albumin 2.2. TSH is normal. Her white cell count was 9700, hemoglobin 10, hematocrit 30, MCV 88 and platelet count of 535,000. Her sed rate was 73 mm per hour and C-reactive protein is 111 mg/dL. I believe they did order also intact parathyroid hormone still in process. ASSESSMENT AND PLAN: 1. Altered mental status, slowly improving. 2. Generalized weakness. 3. Dementia. 4. Mild normochromic normocytic anemia. 5. Hypercalcemia. Her serum calcium yesterday corrected for albumin is about 11.7, today it is 10.76. 6. Her phosphorus is low at about 3.7 and she has also slightly elevated alkaline phosphatase. 7. Her intact PTH is still pending at the time of this dictation, which is consistent with the primary hyperparathyroidism. 8. She has elevated inflammatory markers, which could be infectious, inflammatory or malignancy. 9. I did start her empirically on steroids. 10. We will repeat all her lab works tomorrow and decide on further management accordingly. ASPEN FLOWER MD DR: JOCELYN/antonio JOB#: [id number] / [id number]
[2017-06-16 10:49] VITALS: BP 179/79
--- NOTE | 2017-06-16 11:02 | PDOC ---
SUBJECTIVE: ASSUMING CARE OF THIS PATIENT. SHE IS SITTING IN CHAIR EATING HER BREAKFAST. HER APPETITE IS GOOD HER FOOD IS ALMOST ALL GONE. SHE BECAME A LITTLE AGITATED WHEN I ASKED HER WHERE SHE LIVED AND SHE SAID' HERE"/ . CASE MANAGEMENT IS WORKING ON A DISCHARGE PLAN. SHE HAS USED UP ALL OF HER REHAB DAYS AND HER FAMILY IS MAKING SOME KIND OF ARRANGEMENTS. OBJECTIVE: Problems: Problems Medical Problems: (1) Anemia Status: Acute (2) Dementia Status: Acute (3) Extremity pain Status: Acute (4) Generalized weakness Status: Acute al status, slowly improving. 2. Generalized weakness. 3. Dementia. 4. Mild normochromic normocytic anemia. 5. Hypercalcemia. Her serum calcium yesterday corrected for albumin is about 11.7, today it is 10.76. 6. Her phosphorus is low at about 3.7 and she has also slightly elevated alkaline phosphatase. 7. Her intact PTH is still pending at the time of this dictation, which is consistent with the primary hyperparathyroidism. 8. She has elevated inflammatory markers, which could be infectious, inflammatory or malignancy. 9. I did start her empirically on steroids. 10. We will repeat all her lab works tomorrow and decide on further management accordingly. SITTING UP IN CHAIR, ALERT, MILDLY CONFUSED TONGUE MOIST, LUNGS CLEAR TO AUSCULTATION CVRRR EXT WITHOUT EDEMA lABS NOTED Vital Signs: Vital Signs Date Time Temp Pulse Resp B/P (MAP) Pulse Ox O2 Delivery O2 Flow Rate FiO2 06/16/17 10:49 97.9 59 20 179/79 (112) 97 Room Air I & O Intake and Output 06/16/17 07:00 Intake Total 2667 ml Output Total 850 ml Balance 1817 ml Intake Oral 1200 ml IV Total 1467 ml Output Urine Total 850 ml Labs: Laboratory Tests Test 06/15/17 06:50 06/15/17 14:50 White Blood Count 9.7 x10^3/uL (4.0-11.0) Red Blood Count 3.45 x10^6/uL (3.50-5.40) Hemoglobin 10.1 g/dL (12.0-15.5) Hematocrit 30.4 % (36.0-47.0) Mean Corpuscular Volume 88 fL (79-100) Mean Corpuscular Hemoglobin 29 pg (25-35) Mean Corpuscular Hemoglobin Concent 33 g/dL (31-37) Red Cell Distribution Width 16.8 % (11.5-14.5) Platelet Count 535 x10^3/uL (140-400) Sodium Level 140 mmol/L (136-145) 137 mmol/L (136-145) Potassium Level 4.5 mmol/L (3.5-5.1) 4.8 mmol/L (3.5-5.1) Chloride Level 104 mmol/L (98-107) 105 mmol/L (98-107) Carbon Dioxide Level 27 mmol/L (21-32) 24 mmol/L (21-32) Anion Gap 9 (6-14) 8 (6-14) Blood Urea Nitrogen 15 mg/dL (7-20) 18 mg/dL (7-20) Creatinine 0.6 mg/dL (0.6-1.0) 0.7 mg/dL (0.6-1.0) Estimated GFR (Cockcroft-Gault) 115.8 96.9 BUN/Creatinine Ratio 25 (6-20) Glucose Level 131 mg/dL (70-99) 211 mg/dL (70-99) Calcium Level 10.0 mg/dL (8.5-10.1) 9.4 mg/dL (8.5-10.1) Phosphorus Level 3.7 mg/dL (2.6-4.7) Magnesium Level 1.9 mg/dL (1.8-2.4) 1.9 mg/dL (1.8-2.4) Total Bilirubin 0.2 mg/dL (0.2-1.0) Aspartate Amino Transf (AST/SGOT) 25 U/L (15-37) Alanine Aminotransferase (ALT/SGPT) 35 U/L (14-59) Alkaline Phosphatase 133 U/L (46-116) Total Protein 7.8 g/dL (6.4-8.2) Albumin 2.2 g/dL (3.4-5.0) Albumin/Globulin Ratio 0.4 (1.0-1.7) Physical Exam: SEE ABOVE ASSESSMENT: SEE ABOVE PLAN: WORKING TOWARDS DISCHARGE. CHECK ANOTHER SED RATE. KRISHNA CATHERINE DO Jun 16, 2017 11:02
[2017-06-16 14:34] VITALS: BP 177/67
[2017-06-16] MEDS ORDERED: MAGN400T22 PO (15:17)
--- NOTE | 2017-06-16 18:31 | PDOC ---
Exam Note: Alfred Note: Please also refer to the separate dictated note~for this date of service dictated separately.~Patient seen individually. Discussed the patient with Nursing staff reviewed the chart.~Reviewed interim history and current functioning. Reviewed vital signs,~Labs/ Radiology~and current medications noted below. Continue current treatment with the changes noted in the dictated addendum note Assessment: Vital Signs: Vital Signs Date Time Temp Pulse Resp B/P (MAP) Pulse Ox O2 Delivery O2 Flow Rate FiO2 06/16/17 14:34 98.6 67 20 177/67 (103) 99 Room Air I&O Intake and Output 06/16/17 07:00 Intake Total 2667 ml Output Total 850 ml Balance 1817 ml Intake Oral 1200 ml IV Total 1467 ml Output Urine Total 850 ml Labs: Laboratory Tests Test 06/16/17 11:23 Erythrocyte Sedimentation Rate 85 (0-25) H Current Medications: Meds: Current Medications Acetaminophen (Tylenol) 650 mg PRN Q6HRS PRN PO PAIN / TEMP; Start 06/11/17 at 20:00; Stop 06/11/17 at 20:42; Status DC Acetaminophen (Tylenol) 650 mg PRN Q6HRS PRN PO PAIN / TEMP; Start 06/11/17 at 20:45 Aspirin (Children'S Aspirin) 81 mg DAILY PO Last administered on 06/16/17at 08:57 ; Start 06/12/17 at 09:00 Hydralazine HCl (Apresoline) 25 mg BID PO Last administered on 06/15/17at 08:30; Start 06/11/17 at 21:00; Stop 06/15/17 at 11:44; Status DC Memantine (Namenda) 5 mg DAILY PO ; Start 06/12/17 at 09:00; Stop 06/12/17 at 09: 00; Status DC Metoprolol Tartrate (Lopressor) 50 mg BID PO Last administered on 06/16/17at 08: 57; Start 06/11/17 at 21:00 Nystatin (Nystop) 1 amanda BID TP Last administered on 06/16/17at 08:58; Start 06/11 at 21:00 Potassium Chloride (Klor-Con) 20 meq TID PO ; Start 06/11/17 at 21:00; Stop at 21:00; Status DC Multivitamins/ Minerals 10 ml/ Folic Acid 1 mg/ Thiamine HCl 100 mg/Dextrose/ Sodium Chloride 1,011.2 ml @ 100.009 mls/hr DAILY IV Last administered on 06/11at 22:01; Start 06/11/17 at 21:00; Stop 06/13/17 at 07:15; Status DC Potassium Chloride (KCl Oral Soln) 20 meq TID PO Last administered on 06/16/17 13:11; Start 06/11/17 at 21:00 Sodium Chloride 1,000 ml @ 75 mls/hr [id number] IV Last administered on 06/13/17at 05:15; Start 06/12/17 at 14:45; Stop 06/13/17 at 15:18; Status DC Multivitamins/ Calcium (Thera-M Plus) 1 tab DAILY PO Last administered on 08:57; Start 06/13/17 at 09:00 Methylprednisolone Sodium Succinate (SOLU-Medrol 40MG VIAL) 40 mg 1X ONCE IV Last administered on 06/13/17at 15:44; Start 06/13/17 at 15:30; Stop 06/13/17 at 15: 31; Status DC Methylprednisolone Sodium Succinate (SOLU-Medrol 40MG VIAL) 40 mg DAILY IV Last administered on 06/16/17 08:57; Start 06/15/17 at 09:00 Methylprednisolone Sodium Succinate (SOLU-Medrol 40MG VIAL) 40 mg 1X ONCE IV Last administered on 06/14/17 17:34; Start 06/14/17 at 16:00; Stop 06/14/17 at 16: 01; Status DC Sodium Chloride 1,000 ml @ 75 mls/hr [id number] IV Last administered on 06/15/17 19:48; Start 06/14/17 at 16:00 Magnesium Oxide (Magnesium Oxide) 400 mg TID PO Last administered on 06/16/17 13:14; Start 06/14/17 at 21:00 Hydralazine HCl (Apresoline) 50 mg TID PO Last administered on 06/16/17 13:12; Start 06/15/17 at 12:00 Active Scripts Active Mag-Oxide (Magnesium Oxide) 400 Mg Tablet 400 Mg PO TID 90 Days Reported Potassium Chloride 10 Meq Tablet.er 20 Meq PO TID LAST DOSE GIVEN: DATE: TODAY TIME: AFTERNOON NEXT DOSE DUE: DATE: TODAY TIME: PM Tylenol With Codeine #3 Tablet (Acetaminophen With Codeine) 1 Each Tablet 1 Each PO PRN Q6HRS PRN LAST DOSE GIVEN: NOT GIVEN IN THE HOSPITAL NEXT DOSE DUE: DATE: TIME: Tylenol (Acetaminophen) 325 Mg Tablet 650 Mg PO PRN Q6HRS PRN LAST DOSE GIVEN: DATE: NOT GIVEN TODAY NEXT DOSE DUE: DATE: TIME: IF AND WHEN NEEDED Metoprolol Tartrate 50 Mg Tablet 50 Mg PO BID LAST DOSE GIVEN: DATE: TIME: AM NEXT DOSE DUE: DATE: TIME: PM Nystop (Nystatin) 60 Gm Powder 60 Gm TP BID LAST DOSE GIVEN: DATE: TIME: AM NEXT DOSE DUE: DATE: TIME: PM Multivitamins (Multivitamin) 1 Each Tablet 1 Each PO DAILY LAST DOSE GIVEN: DATE: TIME: AM NEXT DOSE DUE: DATE: TOMORR TIME: AM Hydralazine Hcl 25 Mg Tablet 25 Mg PO BID LAST DOSE GIVEN: DATE: TIME: AM NEXT DOSE DUE: DATE: TODAY TIME: PM Aspirin 81 Mg Tab.chew 81 Mg PO DAILY LAST DOSE GIVEN: DATE: TIME: AM NEXT DOSE DUE: DATE: TOMORROW TIME: AM I have reviewed the current psychotropics carefully including drug interactions. Risk benefit ratio favors no change other than as noted in my dictated progress note. Diagnosis: Problems: (1) Dementia in Alzheimer's disease with delusions (2) Dementia in Alzheimer's disease with depression (3) Dementia, vascular, with depression (4) Impulse control disorder (5) Anxiety disorder (6) Altered mental status MINE LUKE MD Jun 16, 2017 18:31
--- NOTE | 2017-06-16 18:32 | PDOC ---
Exam Note: Alfred Note: Please also refer to the separate dictated note~for this date of service dictated separately.~Patient seen individually. Discussed the patient with Nursing staff reviewed the chart.~Reviewed interim history and current functioning. Reviewed vital signs,~Labs/ Radiology~and current medications noted below. Continue current treatment with the changes noted in the dictated addendum note Assessment: Vital Signs: Vital Signs Date Time Temp Pulse Resp B/P (MAP) Pulse Ox O2 Delivery O2 Flow Rate FiO2 06/16/17 14:34 98.6 67 20 177/67 (103) 99 Room Air I&O Intake and Output 06/16/17 07:00 Intake Total 2667 ml Output Total 850 ml Balance 1817 ml Intake Oral 1200 ml IV Total 1467 ml Output Urine Total 850 ml Labs: Laboratory Tests Test 06/16/17 11:23 Erythrocyte Sedimentation Rate 85 (0-25) H Current Medications: Meds: Current Medications Acetaminophen (Tylenol) 650 mg PRN Q6HRS PRN PO PAIN / TEMP; Start 06/11/17 at 20:00; Stop 06/11/17 at 20:42; Status DC Acetaminophen (Tylenol) 650 mg PRN Q6HRS PRN PO PAIN / TEMP; Start 06/11/17 at 20:45 Aspirin (Children'S Aspirin) 81 mg DAILY PO Last administered on 06/16/17at 08:57 ; Start 06/12/17 at 09:00 Hydralazine HCl (Apresoline) 25 mg BID PO Last administered on 06/15/17at 08:30; Start 06/11/17 at 21:00; Stop 06/15/17 at 11:44; Status DC Memantine (Namenda) 5 mg DAILY PO ; Start 06/12/17 at 09:00; Stop 06/12/17 at 09: 00; Status DC Metoprolol Tartrate (Lopressor) 50 mg BID PO Last administered on 06/16/17at 08: 57; Start 06/11/17 at 21:00 Nystatin (Nystop) 1 amanda BID TP Last administered on 06/16/17at 08:58; Start 06/11 at 21:00 Potassium Chloride (Klor-Con) 20 meq TID PO ; Start 06/11/17 at 21:00; Stop at 21:00; Status DC Multivitamins/ Minerals 10 ml/ Folic Acid 1 mg/ Thiamine HCl 100 mg/Dextrose/ Sodium Chloride 1,011.2 ml @ 100.009 mls/hr DAILY IV Last administered on 06/11at 22:01; Start 06/11/17 at 21:00; Stop 06/13/17 at 07:15; Status DC Potassium Chloride (KCl Oral Soln) 20 meq TID PO Last administered on 06/16/17 13:11; Start 06/11/17 at 21:00 Sodium Chloride 1,000 ml @ 75 mls/hr [id number] IV Last administered on 06/13/17at 05:15; Start 06/12/17 at 14:45; Stop 06/13/17 at 15:18; Status DC Multivitamins/ Calcium (Thera-M Plus) 1 tab DAILY PO Last administered on 08:57; Start 06/13/17 at 09:00 Methylprednisolone Sodium Succinate (SOLU-Medrol 40MG VIAL) 40 mg 1X ONCE IV Last administered on 06/13/17at 15:44; Start 06/13/17 at 15:30; Stop 06/13/17 at 15: 31; Status DC Methylprednisolone Sodium Succinate (SOLU-Medrol 40MG VIAL) 40 mg DAILY IV Last administered on 06/16/17 08:57; Start 06/15/17 at 09:00 Methylprednisolone Sodium Succinate (SOLU-Medrol 40MG VIAL) 40 mg 1X ONCE IV Last administered on 06/14/17 17:34; Start 06/14/17 at 16:00; Stop 06/14/17 at 16: 01; Status DC Sodium Chloride 1,000 ml @ 75 mls/hr [id number] IV Last administered on 06/15/17 19:48; Start 06/14/17 at 16:00 Magnesium Oxide (Magnesium Oxide) 400 mg TID PO Last administered on 06/16/17 13:14; Start 06/14/17 at 21:00 Hydralazine HCl (Apresoline) 50 mg TID PO Last administered on 06/16/17 13:12; Start 06/15/17 at 12:00 Active Scripts Active Mag-Oxide (Magnesium Oxide) 400 Mg Tablet 400 Mg PO TID 90 Days Reported Potassium Chloride 10 Meq Tablet.er 20 Meq PO TID LAST DOSE GIVEN: DATE: TODAY TIME: AFTERNOON NEXT DOSE DUE: DATE: TODAY TIME: PM Tylenol With Codeine #3 Tablet (Acetaminophen With Codeine) 1 Each Tablet 1 Each PO PRN Q6HRS PRN LAST DOSE GIVEN: NOT GIVEN IN THE HOSPITAL NEXT DOSE DUE: DATE: TIME: Tylenol (Acetaminophen) 325 Mg Tablet 650 Mg PO PRN Q6HRS PRN LAST DOSE GIVEN: DATE: NOT GIVEN TODAY NEXT DOSE DUE: DATE: TIME: IF AND WHEN NEEDED Metoprolol Tartrate 50 Mg Tablet 50 Mg PO BID LAST DOSE GIVEN: DATE: TIME: AM NEXT DOSE DUE: DATE: TIME: PM Nystop (Nystatin) 60 Gm Powder 60 Gm TP BID LAST DOSE GIVEN: DATE: TIME: AM NEXT DOSE DUE: DATE: TIME: PM Multivitamins (Multivitamin) 1 Each Tablet 1 Each PO DAILY LAST DOSE GIVEN: DATE: TIME: AM NEXT DOSE DUE: DATE: TOMORR TIME: AM Hydralazine Hcl 25 Mg Tablet 25 Mg PO BID LAST DOSE GIVEN: DATE: TIME: AM NEXT DOSE DUE: DATE: TODAY TIME: PM Aspirin 81 Mg Tab.chew 81 Mg PO DAILY LAST DOSE GIVEN: DATE: TIME: AM NEXT DOSE DUE: DATE: TOMORROW TIME: AM I have reviewed the current psychotropics carefully including drug interactions. Risk benefit ratio favors no change other than as noted in my dictated progress note. Diagnosis: Problems: (1) Altered mental status (2) Dementia in Alzheimer's disease with delusions (3) Dementia in Alzheimer's disease with depression (4) Dementia, vascular, with delusions (5) Dementia, vascular, with depression (6) Impulse control disorder (7) Anxiety disorder MINE LUKE MD Jun 16, 2017 18:32
--- NOTE | 2017-06-17 08:26 | CONS ---
DATE OF CONSULTATION: 06/15/2017 This is a late entry 06/15/2017, covers elements not covered in my initial note 06/15/2017. The patient was seen individually evening of 06/15/2017. IDENTIFYING DATA: The patient is an 82-year-old -[place] female seen in bed 107, [address], [facility], for a psychiatric consult, requested by Dr. Burnett on account of worsening confusion, visual hallucinations. Apparently, the patient has been seeing people in the room and gets upset that they will not answer her. She was started on prednisone the day prior due to polymyalgia rheumatica and I have been asked to consult to look for any psychiatric recommendations for her hallucinations. CHIEF COMPLAINT: "I need my television." The patient is quite oblivious of where she is, unable to manage her TV, which I helped her with." HISTORY OF PRESENT ILLNESS: The patient normally resides at [facility]. Recently, she has appeared increasingly weak, lethargic, a drop in her appetite, not eating, unable to bear weight. She was sent to the ER at [place]. CT head showed significant motion artifact, but no acute changes were noted. She has had some sleep and appetite changes. No active suicidal or homicidal ideation. Psychotic symptoms are as noted above. PAST PSYCHIATRIC HISTORY: Positive for progressive memory deficits. PAST MEDICAL HISTORY: Hypertension, hyperlipidemia, type 2 diabetes mellitus and on oral hypoglycemic agent. PAST SURGICAL HISTORY: Unremarkable. FAMILY HISTORY: Unremarkable. SOCIAL HISTORY: She generally lives with her granddaughter. Previously, she was able to walk and actually even climb stairs, though she has not done that since her last admission to [facility] or while at [place]. DRUG ALLERGIES: Negative. REVIEW OF SYSTEMS: Unobtainable. Current psychotropics, EMRAD was reviewed. Ambulation impaired. No CV, , pulmonary, eye system symptoms on review. Reliability poor. MENTAL STATUS EXAMINATION: Oriented to herself. Insight, judgment, recent and remote memory, attention, concentration, fund of knowledge poor, consistent with her diagnoses. 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 Rest as above. PLAN: From a psychiatric standpoint, I would not recommend anything different at this stage until she is medically stabilized. If hallucinations persist despite medical stabilization, we will consider low dose Seroquel at that stage. Dr. Burnett, thank you for the opportunity to participate in your patient's care. We will follow with you. MINE LUKE MD DR: RODERICK/antonio JOB#: [id number] / [id number]
[2017-06-17 16:14] LABS: CALCIUM PTH 9.9 mg/dL (8.7-10.3); CREATININE PTH 0.53 mg/dL (0.57-1.00); PTH INTACT 42 pg/mL (15-65)
== END 2017-06-16 18:10 | disposition home or self-care (01) | DRG 545 ==
LOC: ER 14:28 → 1 SOUTH 16:45 → OBSVTOIN 16:45 → INTOOBSV 18:30
PROVIDERS: ADMIT Family Medicine; ATTEND Family Medicine
DX: M35.3 Polymyalgia rheumatica (principal); G93.41 Metabolic encephalopathy; E43 Unspecified severe protein-calorie malnutrition; D64.9 Anemia, unspecified; E11.9 Type 2 diabetes mellitus without complications; I11.0 Hypertensive heart disease with heart failure; I50.9 Heart failure, unspecified; G30.9 Alzheimer's disease, unspecified; F01.50 Vascular dementia, unspecified severity, without behavioral disturbance, psychotic disturbance, mood disturbance, and anxiety; E86.0 Dehydration; D72.829 Elevated white blood cell count, unspecified; E21.0 Primary hyperparathyroidism; E78.5 Hyperlipidemia, unspecified; F02.80 Dementia in other diseases classified elsewhere, unspecified severity, without behavioral disturbance, psychotic disturbance, mood disturbance, and anxiety; F32.9 Major depressive disorder, single episode, unspecified; F41.9 Anxiety disorder, unspecified; F63.9 Impulse disorder, unspecified; Z74.01 Bed confinement status
CPT/HCPCS: 36415; 70450; 71045; 80048; 80053; 81001; 82140; 82550; 82553; 82947; 83605; 83690; 83735; 83880; 83970; 84100; 84443; 84484; 85025; 85027; 85610; 85651; 86140; 87086; 87641; 87804; 93005; 93971; J2920; 97116; J7030

== ENCOUNTER 2017-06-21 13:53 | Emergency (ER) | payer MEDICARE ==
[~2017-06-21 13:53] MED LIST changes: +ACET-704 PO; +ACET325T9 PO; +ASPI-630 PO; +HYDR-2868 PO; +MAGN400T22 PO; +MEMA10TA PO; +METO50TA6 PO; +MULT1TAB52 PO; +NYST60PO TP; +POTA10TA10 PO
--- NOTE | 2017-06-21 14:47 | PHYS DOC ---
General Chief Complaint: URINE CATHETER PROBLEM Stated Complaint: CATHETER PROBLEM Time Seen by MD: 14:19 Source: patient, family, old records Exam Limitations: no limitations Problems: History of Present Illness Initial Comments 82-year-old female brought to the ED by family with urinary catheter problem. Decreased drainage from catheter past several days reported by the family, this morning they report that it appeared as if patient had wet the bed. Otherwise patient feels well in general no fever chills sweats or body aches no nausea or vomiting. Urinary catheter was successfully changed by RN a urine specimen obtained for urinalysis, culture and sensitivity. ED vitals: 98.5, 175/102, 16, 110, 99% room air (patient has been off metoprolol , hydralazine, and a "pain medication" since discharge from the hospital early this week. Denies any chest discomfort shortness of breath and diaphoresis arm or neck symptoms, dyspnea on exertion or other symptoms. Patient reports she gets frequent UTIs and she is uncertain why. I explained to her and her family that the presence of an indwelling catheter is always a risk to develop urinary infections. Most recent urinary culture obtained and attached to the chart below. RUN DATE: 05/14/17 [facility] *LIVE* PAGE 1 RUN TIME: 1410 Specimen Inquiry PATIENT: COLTON WEEMS ACCT: [id number] LOC: ICU U : [id number] AGE/SX: 82/F ROOM: ICU01 REG : 01/29/[address]: ASPEN FLOWER MD : 1935 BED: 1 DIS : STATUS: ADM IN TLOC: SPEC #: [id number] JETHRO: 05/12/17 STATUS: COMP REQ #: [id number] RECD: 05/12/[address]: CHAR WELLS MD SOURCE: VOID ENTR: 05/12/[address]: ERENDIRA,FREDDIE SPDESC: ORDERED: URINE CULTURE Procedure Result URINE CULTURE Final Final report URINE CULT RES 1 Final Comment Pseudomonas aeruginosa Greater than 100,000 colony forming units per mL ANTIMICROBIAL SUSCEPTIBILITY Final Comment S = Susceptible; I = Intermediate; R = Resistant P = Positive; N = Negative MICS are expressed in micrograms per mL Antibiotic RSLT#1 RSLT#2 RSLT#3 RSLT#4 Amikacin S Cefepime S Ceftazidime S Ciprofloxacin S Gentamicin S Imipenem S Levofloxacin S Meropenem S Piperacillin S Ticarcillin S Tobramycin S Performed at: [address] [id number] Manager Wellness: Stephenie Mcelroy MD, Phone: [phone] END OF REPORT Timing/Duration: other (past few days) Severity: moderate Modifying Factors: worse with movement Associated Symptoms: other Allergies: Coded Allergies: I S O L A T I O N *CONTACT* (Verified Allergy, Unknown, 05/14/17) +MRSA screen 05/12/17 NKMA (Verified Allergy, Unknown, 05/14/17) Past Medical History Medical History: other (CHF, dementia, diabetes, hypertension, neurogenic bladder) Surgical History: noncontributory Social History Smoker: non-smoker Alcohol: none Drugs: none Review of Systems Constitutional: denies chills, denies fever, denies malaise Respiratory: denies cough, denies orthopnea, denies shortness of breath, denies wheezing Cardiovascular: denies chest pain, denies edema, denies palpitations, denies syncope Gastrointestinal: denies abdominal pain, denies diarrhea, denies nausea, denies vomiting Genitourinary: see HPI Musculoskeletal: denies back pain, denies joint swelling, denies neck pain Psychiatric/Neurological: denies headache Hematologic/Lymphatic: denies blood clots, denies easy bleeding, denies easy bruising Physical Exam General Appearance: WD/WN, no apparent distress Ear, Nose, Throat: hearing grossly normal, normal ENT inspection, normal pharynx Neck: non-tender, supple Respiratory: normal breath sounds, no respiratory distress Cardiovascular: normal peripheral pulses, regular rate, rhythm Gastrointestinal: normal bowel sounds, non tender, soft Rectal: deferred Back: no CVA tenderness, no vertebral tenderness Extremities: non-tender, normal inspection Neurologic/Psychiatric: 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 Using patient's past urine culture results tried to match sensitivities with the assumption the same pathogen. I discussed findings at length with the patient and family. Discussed Ruelas catheter care, oral hydration, and prescription and [id number] medications. It took a while to determine what medications the patient had run out of it and was ultimately determined metoprolol hydralazine and pain medication. As they could not recall the pain medication I asked the RN to try to clarify this, and did authorize her to call and a 1 week supply of the patient's metoprolol and hydralazine to get her by until she can get in with her PCP. I discussed signs and symptoms to monitor as well as indications for urgent return to the department. I discussed PCP follow-up next week for further chronic medications at a recheck of urine culture results from today. The patient and her family's multiple questions were answered to her satisfaction and they did express agreement and understanding with the treatment plan as was discussed with a [id number] by me and provided in departure instructions by me as below. Rocephin 1 g given intravenously in addition to new prescriptions listed below. Patient left the department in good condition. Departure Time of Disposition: 14:49 Disposition: 01 HOME, SELF-CARE Diagnosis: catheter associated UTI, Ruelas catheter problem Condition: GOOD Patient Instructions: Catheter-Associated Urinary Tract Infection FAQs - GUERRERO Additional Instructions: Please review the patient education materials given by ED staff. Continue Ruelas catheter care as before. Prescription: Cefixime 200 mg twice daily for 10 days Follow-up with your doctor in 5-7 days for recheck and to go over urine culture results. Return to ED with new or changing symptoms. CODI BROWN DO Jun 21, 2017 14:47
[2017-06-21] MEDS ORDERED: CEFI200S PO (14:49)
[2017-06-21] MEDS ORDERED: cefTRIAXone SODIUM 1 GM VIAL IV ONE (15:04)
[2017-06-21 15:11] LABS: BILIRUBIN,URINE NEG (NEG); CLARITY,URINE TURBID; COLOR,URINE YELLOW; GLUCOSE,URINE NEG (NEG)
[2017-06-21 15:12] LABS: BACTERIA,URINE MANY /HPF (0-FEW); NITRITE,URINE POS (NEG); SQUAMOUS EPITHELIAL CELL,UR FEW /LPF; UROBILINOGEN,URINE 1 mg/dL (0.2 mg/dL); WBC,URINE 20-40 /HPF (0-4)
[2017-06-21 15:13] LABS: AMORPHOUS SEDIMENT,UR PRESENT /HPF
[2017-06-21 15:17] VITALS: BP 166/79
[2017-06-21] MEDS ORDERED: cefTRIAXone IM 1 GM VIAL IM ONE (15:30)
== END 2017-06-21 16:15 | disposition home or self-care (01) ==
LOC: ER 13:53
DX: T83.511A Infection and inflammatory reaction due to indwelling urethral catheter, initial encounter (principal); T83.098A Other mechanical complication of other urinary catheter, initial encounter; I11.0 Hypertensive heart disease with heart failure; I50.9 Heart failure, unspecified; F03.90 Unspecified dementia, unspecified severity, without behavioral disturbance, psychotic disturbance, mood disturbance, and anxiety; E11.9 Type 2 diabetes mellitus without complications; Z87.440 Personal history of urinary (tract) infections; Z91.041 Radiographic dye allergy status
CPT/HCPCS: 51702; 81001; 87086; 96372; 99284; J0696

== ENCOUNTER 2017-06-27 17:26 | Inpatient (IN) | payer MEDICARE ==
[~2017-06-27] VITALS: Ht 162.6 cm; Wt 65.5 kg
[~2017-06-27 17:26] MED LIST changes: +CEFI200S PO
--- NOTE | 2017-06-27 17:43 | ED.ADGEN ---
Past History Past Medical History: CHF, Dementia, Depression, Diabetes, Hypertension, UTI Past Surgical History: Other Alcohol Use: None Drug Use: None Adult General Chief Complaint Chief Complaint "She is more confused today.. I am worried maybe she had stoke... she been confused all day... " (Daughter) [facility] HPI Patient is a 82 year old female who presents with hx of mental status change and recent dx of UTI. Hx. of fall earlier today. No change in meds. or travel. Pt. has multiple medical problems such as dementia, cognitive to communication defect, dysphagia, deconditioning, hypertension, hypokalemia, decub ulcers, depression, hypothyroidism,and DM. Pt. had been in [place] but for past 3 weeks living at home with daughter. Pt. had no recent travel or specific ill contacts. Pt. has followed with Dr. Hein in the past but currently follows with Dr. Mancuso. Review of Systems Review of Systems Pt. a poor historian, no specific complaints Constitutional: Denies fever or chills [] Eyes: Denies change in visual acuity, redness, or eye pain [] HENT: Denies nasal congestion or sore throat [] Respiratory: Denies cough or shortness of breath [] Cardiovascular: No additional information not addressed in HPI [] GI: Denies abdominal pain, nausea, vomiting, bloody stools or diarrhea [] : Denies dysuria or hematuria [] Musculoskeletal: Denies back pain or joint pain [] Integument: Denies rash or skin lesions [] Neurologic: Denies headache, focal weakness or sensory changes [] Endocrine: Denies polyuria or polydipsia [] All other systems were reviewed and found to be within normal limits, except as documented in this note. Family History Family History Non-contributory to presentation. Current Medications Current Medications Current Medications Medications (Trade) Dose Ordered Sig/Tamela Start Time Stop Time Status Last Admin Dose Admin Ondansetron HCl (Zofran) 4 mg PRN Q4HRS PRN 06/27/17 20:00 06/28/17 19:59 Sodium Chloride 1,000 ml @ 100 mls/hr Q10H 06/27/17 17:44 06/28/17 03:43 06/27/17 17:44 100 MLS/HR See Nursing for home meds. Allergies Allergies Allergies Coded Allergies Type Severity Reaction Last Updated Verified I S O L A T I O N *CONTACT* Allergy Unknown 05/14/17 Yes NKMA Allergy Unknown 05/14/17 Yes Physical Exam Physical Exam Constitutional: 82 yr. old female, somewhat slow to respond to questions, no acute distress, non-toxic appearance. [] HENT: Normocephalic, atraumatic, bilateral external ears normal, oropharynx moist, no oral exudates, nose normal. [] Eyes: PERRLA, EOMI, conjunctiva normal, no discharge. Arcus. Neck: Limitied range of motion, no tenderness, supple, no stridor. [] Cardiovascular:Heart rate regular rhythm, no murmur, PMI to Lt. Lungs & Thorax: Bilateral breath sounds equal with scattered crackles on auscultation [] Abdomen: Bowel sounds normal, soft, no tenderness, no masses, no pulsatile masses. [] Skin: Warm, dry, no erythema, no rash. Poor turgor. Decub sacral. Back: Sacral tenderness, no CVA tenderness. [] Extremities: No tenderness, no cyanosis, no clubbing, ROM intact, ankle edema. Arthritic changes. Neurologic: Alert and oriented X 2, knows name and she is at hospital, generalized motor weakness, sensory function is at her baseline per daughter] Psychologic: Affect flat, obvious memory deficits, mood depressed. Current Patient Data Vital Signs Vital Signs Date Time Temp Pulse Resp B/P (MAP) Pulse Ox O2 Delivery O2 Flow Rate FiO2 06/27/17 19:03 81 27 167/84 (111) 99 Room Air 06/27/17 18:21 98.4 Lab Results Laboratory Tests Test 06/27/17 18:05 06/27/17 18:10 White Blood Count 12.1 x10^3/uL (4.0-11.0) H Red Blood Count 4.00 x10^6/uL (3.50-5.40) Hemoglobin 11.6 g/dL (12.0-15.5) L Hematocrit 34.7 % (36.0-47.0) L Mean Corpuscular Volume 87 fL (79-100) Mean Corpuscular Hemoglobin 29 pg (25-35) Mean Corpuscular Hemoglobin Concent 34 g/dL (31-37) Red Cell Distribution Width 16.8 % (11.5-14.5) H Platelet Count 306 x10^3/uL (140-400) Neutrophils (%) (Auto) 80 % (31-73) H Lymphocytes (%) (Auto) 13 % (24-48) L Monocytes (%) (Auto) 6 % (0-9) Eosinophils (%) (Auto) 0 % (0-3) Basophils (%) (Auto) 0 % (0-3) Neutrophils # (Auto) 9.7 x10^3uL (1.8-7.7) H Lymphocytes # (Auto) 1.6 x10^3/uL (1.0-4.8) Monocytes # (Auto) 0.8 x10^3/uL (0.0-1.1) Eosinophils # (Auto) 0.0 x10^3/uL (0.0-0.7) Basophils # (Auto) 0.1 x10^3/uL (0.0-0.2) Prothrombin Time 12.9 SEC (9.4-11.4) H Prothrombin Time INR 1.3 (0.9-1.1) H PTT 29 SEC (23-33) Sodium Level 139 mmol/L (136-145) Potassium Level 3.3 mmol/L (3.5-5.1) L Chloride Level 100 mmol/L (98-107) Carbon Dioxide Level 31 mmol/L (21-32) Anion Gap 8 (6-14) Blood Urea Nitrogen 11 mg/dL (7-20) Creatinine 0.7 mg/dL (0.6-1.0) Estimated GFR (Cockcroft-Gault) 96.9 Glucose Level 136 mg/dL (70-99) H Calcium Level 9.8 mg/dL (8.5-10.1) Magnesium Level 1.8 mg/dL (1.8-2.4) Total Bilirubin 0.5 mg/dL (0.2-1.0) Direct Bilirubin 0.2 mg/dL (0.0-0.2) Aspartate Amino Transferase (AST) 27 U/L (15-37) Alanine Aminotransferase (ALT) 21 U/L (14-59) Alkaline Phosphatase 100 U/L (46-116) Creatine Kinase 18 U/L (26-192) L Creatine Kinase MB (Mass) < 0.5 ng/mL (0.0-3.6) Creatine Kinase MB Relative Index 2.8 % (0-4) Troponin I Quantitative 0.081 ng/mL (0-0.055) H IX-Hwf-A-Type Natriuretic Peptide 5267 pg/mL (0-449) H Total Protein 7.6 g/dL (6.4-8.2) Albumin 2.3 g/dL (3.4-5.0) L Lipase 42 U/L (73-393) L Urine Collection Type Unknown Urine Color Yellow Urine Clarity Turbid Urine pH 6.0 Urine Specific [place] 1.015 Urine Protein 30 mg/dl (NEG-TRACE) Urine Glucose (UA) Neg mg/dL (NEG) Urine Ketones (Stick) Neg mg/dL (NEG) Urine Blood Small (NEG) Urine Nitrite Neg (NEG) Urine Bilirubin Neg (NEG) Urine Urobilinogen Dipstick 2 mg/dL (0.2 mg/dL) Urine Leukocyte Esterase Trace (NEG) Urine RBC 6-10 /HPF (0-2) Urine WBC 5-10 /HPF (0-4) Urine Squamous Epithelial Cells Few /LPF Urine Amorphous Sediment Present /HPF Urine Bacteria Few /HPF (0-FEW) Urine Opiates Screen Neg (NEG) Urine Methadone Screen Neg (NEG) Urine Barbiturates Neg (NEG) Urine Phencyclidine Screen Neg (NEG) Urine Amphetamine/Methamphetamine Neg (NEG) Urine Benzodiazepines Screen Neg (NEG) Urine Cocaine Screen Neg (NEG) Urine Cannabinoids Screen Neg (NEG) Urine Ethyl Alcohol Neg (NEG) EKG EKG My interpretation of EKG shows Sinus rate at 80, occ. PAC, Lt axis dev. baseline artifact. [] Radiology/Procedures Radiology/Procedures My interpretation of CXR, shows borderline cardiomegaly, some in creased cephalization as comp. to prior. [] Course & Med Decision Making Course & Med Decision Making Pertinent Labs and Imaging studies reviewed. (See chart for details) Discussed presentation, testing and tx. plan with Dr. Hein- admit for further eval. and tx. [] Final Impression Final Impression 1. Mental Status Change 2. Fall 3. Hx of UTI[] 4. Elevated Trop 5. Hypokalemia 6. CHF- BNP 5,267 7. Anemia 8. Leukocytosis 9. Malnutrition 10.Decub Ulcer 11. Dementia Problems: Dragon Disclaimer Dragon Disclaimer This electronic medical record was generated, in whole or in part, using a voice recognition dictation system. LATOYA CARVER MD Jun 27, 2017 17:43
[2017-06-27] MEDS ORDERED: IV NORMAL SALINE 1,000ML 1,000 ML IV SCH (17:44)
--- NOTE | 2017-06-27 18:04 | EKG ---
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
[2017-06-27 18:32] LABS: BASO # 0.1 x10^3/uL (0.0-0.2); BASO % 0 % (0-3); EOS % 0 % (0-3); HEMATOCRIT 34.7 % (36.0-47.0); HEMOGLOBIN 11.6 g/dL (12.0-15.5); LYMPH # 1.6 x10^3/uL (1.0-4.8); LYMPH % 13 % (24-48); MEAN CORPUSCULAR HEMOGLOBIN 29 pg (25-35); MEAN CORPUSCULAR HGB CONC 34 g/dL (31-37); MEAN CORPUSCULAR VOLUME 87 fL (79-100); MONO # 0.8 x10^3/uL (0.0-1.1); MONO % 6 % (0-9); NEUT # 9.7 x10^3uL (1.8-7.7); NEUT % 80 % (31-73); PLATELET COUNT 306 x10^3/uL (140-400); RED CELL DISTRIBUTION WIDTH 16.8 % (11.5-14.5); WHITE BLOOD COUNT 12.1 x10^3/uL (4.0-11.0)
--- NOTE | 2017-06-27 18:46 | RAD ---
RS Compliance Statement: One or more of the following individualized dose reduction techniques were utilized for this examination: 1. Automated exposure control 2. Adjustment of the mA and/or kV according to patient size 3. Use of iterative reconstruction technique CT head without contrast 06/27/2017 6:35 PM INDICATION: Mental status change COMPARISON: CT head June 11, 2017 TECHNIQUE: Multiple axial CT images of the head were obtained from skull base through the vertex without intravenous contrast. FINDINGS: Head: Ventricles, sulci and basal cisterns are mildly prominent, likely secondary to age-related degenerative changes. There is no hydrocephalus. Harrison-white matter differentiation is normal. There is no acute intracranial hemorrhage. There is no mass, mass effect or midline shift. Posterior fossa is normal in appearance. Visualized portions of the orbits are normal. Paranasal sinuses are well aerated. Mastoid air cells are well aerated. Scalp and calvaria are normal. There is an aerated petrous apex. IMPRESSION: No acute intracranial hemorrhage. Electronically signed by: Muna Varela MD (06/27/2017 6:43 PM) [facility]
[2017-06-27 18:53] LABS: AMPHETAMINE/METHAMPHETAMINE NEG (NEG); BARBITURATES NEG (NEG); BENZODIAZEPINES NEG (NEG); CANNABINOIDS NEG (NEG); COCAINE NEG (NEG); METHADONE NEG (NEG); OPIATES NEG (NEG); PHENCYCLIDINE NEG (NEG)
[2017-06-27 18:56] LABS: ALBUMIN 2.3 g/dL (3.4-5.0); ALK PHOS 100 U/L (46-116); ALT (SGPT) 21 U/L (14-59); ANION GAP 8 (6-14); AST (SGOT) 27 U/L (15-37); BLOOD UREA NITROGEN 11 mg/dL (7-20); CALCIUM 9.8 mg/dL (8.5-10.1); CARBON DIOXIDE 31 mmol/L (21-32); CHLORIDE 100 mmol/L (98-107); CREATININE 0.7 mg/dL (0.6-1.0); DIRECT BILIRUBIN 0.2 mg/dL (0.0-0.2); GFR 96.9; GLUCOSE 136 mg/dL (70-99); LIPASE 42 U/L (73-393); MAGNESIUM 1.8 mg/dL (1.8-2.4); POTASSIUM 3.3 mmol/L (3.5-5.1); SODIUM 139 mmol/L (136-145); TOTAL BILIRUBIN 0.5 mg/dL (0.2-1.0); TOTAL PROTEIN 7.6 g/dL (6.4-8.2)
[2017-06-27 19:20] LABS: BILIRUBIN,URINE NEG (NEG); CLARITY,URINE TURBID; COLOR,URINE YELLOW; GLUCOSE,URINE NEG (NEG)
[2017-06-27 19:22] LABS: BACTERIA,URINE FEW /HPF (0-FEW); NITRITE,URINE NEG (NEG); SQUAMOUS EPITHELIAL CELL,UR FEW /LPF; UROBILINOGEN,URINE 2 mg/dL (0.2 mg/dL)
[2017-06-27 19:23] LABS: AMORPHOUS SEDIMENT,UR PRESENT /HPF
[2017-06-27] MEDS ORDERED: ONDANSETRON PF 4 MG/2 ML VIAL. IV PRN (20:00)
[2017-06-27] MEDS ORDERED: cefTRIAXone SODIUM 1 GM VIAL IV ONE (20:23)
[2017-06-27] MEDS ORDERED: IV NORMAL SALINE 50ML 50 ML ONE (20:25)
[2017-06-27] MEDS ORDERED: FUROSEMIDE 40 MG/4 ML VIAL IVP ONE (20:30)
[2017-06-27] MEDS ORDERED: POTASSIUM CHLORIDE 20 MEQ/15 ML ORAL LIQUID. PO ONE (20:30)
[2017-06-27] MEDS: cefTRIAXone IV Push 1 GM VIAL. IVP SCH (21:00)
[2017-06-27 21:12] VITALS: BP 128/82
[2017-06-27] MEDS ORDERED: METO50TA29 PO (21:48)
[2017-06-27] MEDS: LACTOBACILLUS RHAMNOSUS GG 1 CAPSULE. PO SCH (22:47)
[2017-06-28] MEDS ORDERED: FUROSEMIDE 40 MG/4 ML VIAL IVP ONE (06:00)
[2017-06-28 06:20] LABS: BASO # 0.1 x10^3/uL (0.0-0.2); BASO % 1 % (0-3); EOS % 0 % (0-3); HEMATOCRIT 29.5 % (36.0-47.0); HEMOGLOBIN 9.9 g/dL (12.0-15.5); LYMPH # 2.3 x10^3/uL (1.0-4.8); LYMPH % 20 % (24-48); MEAN CORPUSCULAR HEMOGLOBIN 29 pg (25-35); MEAN CORPUSCULAR HGB CONC 33 g/dL (31-37); MEAN CORPUSCULAR VOLUME 87 fL (79-100); MONO # 0.7 x10^3/uL (0.0-1.1); MONO % 6 % (0-9); NEUT # 8.4 x10^3uL (1.8-7.7); NEUT % 73 % (31-73); PLATELET COUNT 274 x10^3/uL (140-400); RED BLOOD COUNT 3.39 x10^6/uL (3.50-5.40); RED CELL DISTRIBUTION WIDTH 16.9 % (11.5-14.5); WHITE BLOOD COUNT 11.4 x10^3/uL (4.0-11.0)
[2017-06-28 06:25] LABS: CALCIUM 9.5 mg/dL (8.5-10.1); CREATININE 0.7 mg/dL (0.6-1.0); GFR 96.9; POTASSIUM 3.2 mmol/L (3.5-5.1)
[2017-06-28 06:30] VITALS: BP 137/57
--- NOTE | 2017-06-28 08:03 | RAD ---
Indication: Chest pain and fall. Technique: Portable AP upright chest x-ray Comparison: Previous study from 06/11/2017. Findings: Heart is normal in size. Lungs are clear. No pneumothorax or pleural effusion. Visualized bony thorax is within normal limits. Impression: No acute cardiopulmonary process.
[2017-06-28] MEDS ORDERED: POTASSIUM CHLORIDE 20 MEQ/15 ML ORAL LIQUID. PO ONE ×2 (09:30→10:30)
[2017-06-28] MEDS: LACTOBACILLUS RHAMNOSUS GG 1 CAPSULE. PO SCH ×2 (09:38→20:19)
[2017-06-28 11:18] VITALS: BP 134/55
[2017-06-28 12:37] LABS: CALCIUM 9.5 mg/dL (8.5-10.1); CREATININE 0.8 mg/dL (0.6-1.0); GFR 83.1
[2017-06-28 13:02] LABS: POTASSIUM 5.1 mmol/L (3.5-5.1)
--- NOTE | 2017-06-28 14:56 | HP ---
ADMIT DATE: 06/27/2017 HISTORY OF PRESENT ILLNESS: The patient is an 82-year-old -[place] female patient who was brought back to the Emergency Room by her daughter as she apparently was more confused. She had a history of fall earlier in the day. No change in medication. No travel. The patient has multiple medical problems including dementia, cognitive impairment, deconditioning, hypertension, hypokalemia. She was investigated in the Emergency Room, was found to have mild leukocytosis. She was also found to be mildly hypokalemic and her troponin was slightly elevated at 0.081. Her urinalysis showed that the urine was turbid with 5-10 wbc's, few bacteria. Her toxic screen was unremarkable. She did have CT scan of the head, which showed that the ventricles, sulci and basal cisterns are mildly prominent likely secondary to age-related degenerative changes. There is no hydrocephalus. Kirby and white matter differentiation is normal. There is no acute intracranial hemorrhage. There is no mass, mass effect or midline shift. Posterior fossa is normal in appearance and visualized portions of the orbits are normal. Paranasal sinuses are well aerated. Mastoid air cells are well aerated. Scalp and calvaria are normal. The patient was admitted with an altered mental status, fall, hypokalemia, elevated troponin, mild leukocytosis, decubitus ulcer as well as dementia. PAST MEDICAL HISTORY: Significant for hypertension, hyperlipidemia, type 2 diabetes for which she was on oral hypoglycemic agent. PAST SURGICAL HISTORY: Unremarkable. FAMILY HISTORY: Unremarkable. SOCIAL HISTORY: She currently lives with her daughter. She used to live with her granddaughter before. She does not smoke, drink alcohol, or use recreational drugs. When we first saw her here, she was living with her granddaughter. At that time, she stated that her grandma was able to walk and climb stairs, although she stated that at that time that she has been able to walk for 5 days and she has not really walked all the time she was at [facility] or when she was readmitted again to this facility. REVIEW OF SYSTEMS: Unobtainable. ALLERGIES: She has no known drug allergies. MEDICATIONS: She was last discharged on hydralazine 25 mg twice a day, magnesium oxide 400 mg 3 times a day and metoprolol succinate 50 mg extended release once a day. PHYSICAL EXAMINATION: GENERAL: On arrival to the Emergency Room, she was apparently confused, lethargic, pale, but no jaundice, cyanosis, or thyromegaly. No jugular venous distension. No limb edema. VITAL SIGNS: Her heart rate was 80, blood pressure was 167/84, temperature was 98.4, respiratory rate 22, and oxygen saturation was 99% on room air. HEENT: Showed normocephalic, atraumatic. NECK: Supple. HEART: Showed normal first and second heart sounds. No gallop, rub or murmur. CHEST: Clear to auscultation. No crepitation or rhonchi. ABDOMEN: Distended, soft, nontender. No guarding or rigidity. No organomegaly. All hernial orifice intact. Bowel sounds normal. NEUROLOGIC: She is alert, oriented x 2, knows name and she is at hospital. ____. No motor or sensory weakness. Her affect is flat with obvious memory deficit and the mood is depressed. LABORATORY AND IMAGING DATA: Her lab work in the Emergency Room showed a white cell count 12,100, hemoglobin 11.6, hematocrit 35, MCV 87 and platelet count of 306,000. Her serum sodium was 139, potassium 3.3, chloride 100, bicarbonate 31, anion gap of 8, BUN 11, creatinine 0.7, estimated GFR was 97 mL per minute, her calcium was 9.8, magnesium was 1.8. Total bilirubin, AST, ALT, alkaline phosphatase were normal. Her first troponin was 0.081 and beta natriuretic peptide was 5267. Total protein was 7.6, albumin was 2.3. Her TSH was 1.290. Her prothrombin time was 12.9, INR 1.3, PTT was 29. Urinalysis showed the urine was yellow, turbid with a pH of 6, specific gravity of 1.015, urine protein was 30 mg/dL. Her urine was negative for glucose, ketones, small amount of blood, negative for nitrite and trace of leukocyte esterase, 6-10 rbc's, 5-10 wbc's, very few bacteria. Her urine toxicology screen was negative. Her chest x-ray showed that the heart is normal in size. Lungs are clear. No pseudotumor, no pneumothorax or pleural effusion, visualized bony thorax within normal limits and her CT scan of the head showed that the ventricles and sulci and basal cisterns are mildly prominent likely secondary to age-related degenerative changes. There is no hydrocephalus. Kirby and white matter differentiation is normal. There is no acute intracranial hemorrhage. There is no mass, mass effect or midline shift. Posterior fossa is normal in appearance. Visualized portion of the orbits are normal. Paranasal sinuses are well aerated. Mastoid air cells are well aerated. Scalp and calvaria are normal. There is no aerated petrous apex. IMPRESSION AND PLAN: In summary, this is an 82-year-old -[place] female patient, came again with a more confusion, has a fall. She has generalized weakness, cognitive impairment and a questionable urinary tract infection, hypokalemia, mild leukocytosis. She was started on ceftriaxone and was given IV fluid. We will continue with the IV antibiotic. We will do 2 more sets of cardiac enzyme, replenish her potassium and consult the cardiology team. ASPEN FLOWER MD DR: JOCELYN/antonio JOB#: [id number] / [id number]
--- NOTE | 2017-06-28 15:01 | PDOC2 ---
CONSULT Date of Admission DATE: 06/28/17 TIME: 14:54 Reason for Consult: Mildly elevated troponin Referring Physician: Dr. Hein Chief Complaint decreased mental status Source: Chart review, Patient Problem List The patient is an 82-year-old female who was admitted through the emergency room due to mental status changes. The patient has baseline problems including dementia but the patient's family stated this was increased over baseline levels. She also reportedly had a fall during the several hours prior to her admission. A CT head scan showed no acute process. A chest x-ray also showed no acute processes. Patient's troponin minimally elevated at 0.069 and 0.065. Her EKG shows a sinus rhythm with mild nonspecific ST-T wave changes. An echocardiogram from 05-13-17 shows a normal ejection fraction at 65% with mild mitral regurgitation and mild tricuspid regurgitation. The patient is resting comfortably this morning. History of Present Illness As above. Cardiovascular: CHF, HTN Psych: Depression Endocrine: Diabetes Family History: Hypertension Smoke: No ALCOHOL: none Current Medications Current Medications Sodium Chloride 1,000 ml @ 100 mls/hr Q10H IV Last administered on 06/27/17at 17:44; Start 06/27/17 at 17:44; Stop 06/28/17 at 03:44; Status DC Ondansetron HCl (Zofran) 4 mg PRN Q4HRS PRN IV NAUSEA/VOMITING; Start 06/27/17 at 20:00; Stop 06/28/17 at 19:59 Ceftriaxone Sodium 1 gm/ Sodium Chloride 50 ml @ 100 mls/hr DAILY IV Last administered on 06/27/17at 20:33; Start 06/28/17 at 09:00; Stop 06/28/17 at 09:00 ; Status DC Furosemide (Lasix) 40 mg 1X ONCE IVP ; Start 06/28/17 at 06:00; Stop 06/28/17 at 06:01; Status DC Furosemide (Lasix) 40 mg 1X ONCE IVP Last administered on 06/27/17at 20:33; Start 06/27/17 at 20:30; Stop 06/27/17 at 20:31; Status DC Potassium Chloride (KCl Oral Soln) 40 meq 1X ONCE PO Last administered on 06/27at 22:49; Start 06/27/17 at 20:30; Stop 06/27/17 at 20:31; Status DC Ceftriaxone Sodium (Rocephin) 1 gm Q24H IVP ; Start 06/27/17 at 21:00 Lactobacillus Rhamnosus (Culturelle) 1 cap BID PO Last administered on at 09:38; Start 06/27/17 at 21:00 Potassium Chloride (KCl Oral Soln) 40 meq 1X ONCE PO Last administered on 06/28at 09:39; Start 06/28/17 at 09:30; Stop 06/28/17 at 09:31; Status DC Potassium Chloride (KCl Oral Soln) 40 meq 1X ONCE PO Last administered on 06/28at 11:05; Start 06/28/17 at 10:30; Stop 06/28/17 at 10:31; Status DC Active Scripts Active Mag-Oxide (Magnesium Oxide) 400 Mg Tablet 400 Mg PO TID 90 Days Reported Metoprolol Succinate ( Xl ) (Metoprolol Succinate) 50 Mg Tab.er.24h 50 Mg PO DAILY Hydralazine Hcl 25 Mg Tablet 25 Mg PO BID LAST DOSE GIVEN: DATE: TODAY TIME: AM NEXT DOSE DUE: DATE: TODAY TIME: PM Allergies: Coded Allergies: I S O L A T I O N *CONTACT* (Verified Allergy, Unknown, 05/14/17) +MRSA screen 05/12/17 NKMA (Verified Allergy, Unknown, 05/14/17) Review of System Not obtainable from the patient at this time. General: YES: Fatigue General: No acute distress HEENT: Atraumatic Lungs: Other (slightly decreased breath sounds) Heart: Regular rate Abdomen: Normal bowel sounds VITALS Vital Signs Date Time Temp Pulse Resp B/P (MAP) Pulse Ox O2 Delivery O2 Flow Rate FiO2 06/28/17 11:18 98.2 72 18 134/55 (81) 96 Room Air Labs Laboratory Tests Test 06/27/17 18:05 06/27/17 18:10 06/27/17 21:50 06/27/17 23:30 White Blood Count 12.1 x10^3/uL (4.0-11.0) Red Blood Count 4.00 x10^6/uL (3.50-5.40) Hemoglobin 11.6 g/dL (12.0-15.5) Hematocrit 34.7 % (36.0-47.0) Mean Corpuscular Volume 87 fL (79-100) Mean Corpuscular Hemoglobin 29 pg (25-35) Mean Corpuscular Hemoglobin Concent 34 g/dL (31-37) Red Cell Distribution Width 16.8 % (11.5-14.5) Platelet Count 306 x10^3/uL (140-400) Neutrophils (%) (Auto) 80 % (31-73) Lymphocytes (%) (Auto) 13 % (24-48) Monocytes (%) (Auto) 6 % (0-9) Eosinophils (%) (Auto) 0 % (0-3) Basophils (%) (Auto) 0 % (0-3) Neutrophils # (Auto) 9.7 x10^3uL (1.8-7.7) Lymphocytes # (Auto) 1.6 x10^3/uL (1.0-4.8) Monocytes # (Auto) 0.8 x10^3/uL (0.0-1.1) Eosinophils # (Auto) 0.0 x10^3/uL (0.0-0.7) Basophils # (Auto) 0.1 x10^3/uL (0.0-0.2) Prothrombin Time 12.9 SEC (9.4-11.4) Prothromb Time International Ratio 1.3 (0.9-1.1) Activated Partial Thromboplast Time 29 SEC (23-33) Sodium Level 139 mmol/L (136-145) Potassium Level 3.3 mmol/L (3.5-5.1) Chloride Level 100 mmol/L (98-107) Carbon Dioxide Level 31 mmol/L (21-32) Anion Gap 8 (6-14) Blood Urea Nitrogen 11 mg/dL (7-20) Creatinine 0.7 mg/dL (0.6-1.0) Estimated GFR (Cockcroft-Gault) 96.9 Glucose Level 136 mg/dL (70-99) Calcium Level 9.8 mg/dL (8.5-10.1) Magnesium Level 1.8 mg/dL (1.8-2.4) Total Bilirubin 0.5 mg/dL (0.2-1.0) Direct Bilirubin 0.2 mg/dL (0.0-0.2) Aspartate Amino Transf (AST/SGOT) 27 U/L (15-37) Alanine Aminotransferase (ALT/SGPT) 21 U/L (14-59) Alkaline Phosphatase 100 U/L (46-116) Creatine Kinase 18 U/L (26-192) Creatine Kinase MB (Mass) < 0.5 ng/mL (0.0-3.6) Creatine Kinase MB Relative Index 2.8 % (0-4) Troponin I Quantitative 0.081 ng/mL (0-0.055) 0.069 ng/mL (0-0.055) RD-[id number]-[id number]-Type Natriuretic Peptide 5267 pg/mL (0-449) Total Protein 7.6 g/dL (6.4-8.2) Albumin 2.3 g/dL (3.4-5.0) Lipase 42 U/L (73-393) Thyroid Stimulating Hormone (TSH) 1.290 uIU/mL (0.358-3.740) Urine Collection Type Unknown Urine Color Yellow Urine Clarity Turbid Urine pH 6.0 Urine Specific [place] 1.015 Urine Protein 30 mg/dl (NEG-TRACE) Urine Glucose (UA) Neg mg/dL (NEG) Urine Ketones (Stick) Neg mg/dL (NEG) Urine Blood Small (NEG) Urine Nitrite Neg (NEG) Urine Bilirubin Neg (NEG) Urine Urobilinogen Dipstick 2 mg/dL (0.2 mg/dL) Urine Leukocyte Esterase Trace (NEG) Urine RBC 6-10 /HPF (0-2) Urine WBC 5-10 /HPF (0-4) Urine Squamous Epithelial Cells Few /LPF Urine Amorphous Sediment Present /HPF Urine Bacteria Few /HPF (0-FEW) Urine Opiates Screen Neg (NEG) Urine Methadone Screen Neg (NEG) Urine Barbiturates Neg (NEG) Urine Phencyclidine Screen Neg (NEG) Urine Amphetamine/Methamphetamine Neg (NEG) Urine Benzodiazepines Screen Neg (NEG) Urine Cocaine Screen Neg (NEG) Urine Cannabinoids Screen Neg (NEG) Urine Ethyl Alcohol Neg (NEG) Nasal Screen MRSA (PCR) Positive (Negative) Test 06/28/17 05:47 06/28/17 12:20 White Blood Count 11.4 x10^3/uL (4.0-11.0) Red Blood Count 3.39 x10^6/uL (3.50-5.40) Hemoglobin 9.9 g/dL (12.0-15.5) Hematocrit 29.5 % (36.0-47.0) Mean Corpuscular Volume 87 fL (79-100) Mean Corpuscular Hemoglobin 29 pg (25-35) Mean Corpuscular Hemoglobin Concent 33 g/dL (31-37) Red Cell Distribution Width 16.9 % (11.5-14.5) Platelet Count 274 x10^3/uL (140-400) Neutrophils (%) (Auto) 73 % (31-73) Lymphocytes (%) (Auto) 20 % (24-48) Monocytes (%) (Auto) 6 % (0-9) Eosinophils (%) (Auto) 0 % (0-3) Basophils (%) (Auto) 1 % (0-3) Neutrophils # (Auto) 8.4 x10^3uL (1.8-7.7) Lymphocytes # (Auto) 2.3 x10^3/uL (1.0-4.8) Monocytes # (Auto) 0.7 x10^3/uL (0.0-1.1) Eosinophils # (Auto) 0.0 x10^3/uL (0.0-0.7) Basophils # (Auto) 0.1 x10^3/uL (0.0-0.2) Sodium Level 140 mmol/L (136-145) 138 mmol/L (136-145) Potassium Level 3.2 mmol/L (3.5-5.1) 5.1 mmol/L (3.5-5.1) Chloride Level 102 mmol/L (98-107) 103 mmol/L (98-107) Carbon Dioxide Level 29 mmol/L (21-32) 27 mmol/L (21-32) Anion Gap 9 (6-14) 8 (6-14) Blood Urea Nitrogen 12 mg/dL (7-20) 15 mg/dL (7-20) Creatinine 0.7 mg/dL (0.6-1.0) 0.8 mg/dL (0.6-1.0) Estimated GFR (Cockcroft-Gault) 96.9 83.1 Glucose Level 120 mg/dL (70-99) 179 mg/dL (70-99) Calcium Level 9.5 mg/dL (8.5-10.1) 9.5 mg/dL (8.5-10.1) Troponin I Quantitative 0.065 ng/mL (0-0.055) Images Chest x-ray shows no acute processes. CT head scan shows no acute process. Assessment/Plan 1. Decreased level of consciousness. This appears to be improved today. Patient has a history of dementia. Continue workup as above. 2. Minimally elevated troponin at 0.069 and 0.065. No acute ischemic EKG changes. Echocardiogram from 2 months ago shows a normal ejection fraction. We' ll continue medical treatment. 3. History of mild diastolic heart failure. Chest x-ray is clear. We'll continue present treatments as above. Thank you for allowing us to participate in the care of your patient. Problems: BRENDA SANDERS MD Jun 28, 2017 15:01
[2017-06-28 15:30] VITALS: BP 165/74
--- NOTE | 2017-06-28 18:09 | PN ---
DATE: SUBJECTIVE: The patient was admitted yesterday with worsening confusion and a fall. She was found to be hypokalemic, mild leukocytosis and also questionable urinary tract infection. She was treated with IV antibiotic in the form of ceftriaxone. Her first set of cardiac enzyme was elevated. She had 2 more sets of cardiac enzyme, showed that her troponin has risen further to 0.069 and 0.065. She was seen by the fleet administrator who did not recommend any aggressive intervention at least verbally. I have not seen these reports posted in the computer. Her potassium was low and we did order supplement. PHYSICAL EXAMINATION: GENERAL: When I saw her today, she was resting slightly propped up in bed, in no apparent respiratory distress. She was awake, alert, continued to be confused and pale, but no jaundice, or cyanosis or thyromegaly, no jugular venous distention and no edema. VITAL SIGNS: Her heart rate was 72, blood pressure was 134/55, temperature was 98.2, respiratory rate was 18 and oxygen saturation was 96%. HEAD, EYES, EARS, NOSE AND THROAT: Normocephalic, atraumatic. NECK: Supple. HEART: Showed normal first and second heart sounds with no gallop, rub or murmur. CHEST: Clear to auscultation. No crepitation or rhonchi. ABDOMEN: Distended, soft, nontender. No guarding or rigidity. No organomegaly. Hernial orifices intact. Bowel sounds normal. NEUROLOGIC: She was awake, alert, but confused, disoriented; however, there is no obvious lateralizing sign. All her cranial nerves are intact. She moves extremities without difficulty, although she requires 2-person assist to transfer her from bed to bedside commode. Her intake over the last 24 hours was 480, output was 1375. LABORATORY DATA: This morning showed a serum sodium was 140, potassium 3.2, chloride 102, bicarbonate 29, anion gap of 9, BUN 12, creatinine was 0.7, estimated GFR was 97 mL per minute. Her glucose 120, calcium was 9.5. We did supplement her potassium and her potassium has risen to 5.1. ASSESSMENT: 1. Altered mental status. 2. Fall. 3. Questionable urinary tract infection. 4. Elevated troponin, with questionable non-ST segment elevation myocardial infarction. Her EKG showed sinus rhythm with no evidence of ST-segment elevation or depression. 5. Hypokalemia with serum potassium of 3.3 that has improved. She has normochromic normocytic anemia. PLAN: To continue with IV antibiotic. I think this patient needs to be cared for in a long-term care facility. I think she has progressive neurodegenerative disease and her mobility has been worse since the first time she arrived to our facility here, and I do not see she will be able to live at home without extensive support or better off she is remain in long-term care facility. ASPEN FLOWER MD DR: JOCELYN/antonio JOB#: [id number] / [id number]
[2017-06-28 19:19] VITALS: BP 139/65
[2017-06-28] MEDS: cefTRIAXone IV Push 1 GM VIAL. IVP SCH (20:19)
[2017-06-28 23:19] VITALS: BP 155/73
[2017-06-29 03:19] VITALS: BP 148/63
[2017-06-29 06:44] LABS: HEMATOCRIT 28.3 % (36.0-47.0); HEMOGLOBIN 9.3 g/dL (12.0-15.5); RED BLOOD COUNT 3.21 x10^6/uL (3.50-5.40); WHITE BLOOD COUNT 8.9 x10^3/uL (4.0-11.0)
[2017-06-29 06:54] LABS: ALBUMIN 1.8 g/dL (3.4-5.0); ALBUMIN/GLOBULIN RATIO 0.4 (1.0-1.7); C REACTIVE PROTEIN 109.9 mg/L (0-3.3); CALCIUM 9.1 mg/dL (8.5-10.1); CREATININE 0.6 mg/dL (0.6-1.0); GFR 115.8; TOTAL BILIRUBIN 0.3 mg/dL (0.2-1.0); TOTAL PROTEIN 6.4 g/dL (6.4-8.2)
[2017-06-29 10:47] VITALS: BP 156/80
[2017-06-29] MEDS: LACTOBACILLUS RHAMNOSUS GG 1 CAPSULE. PO SCH (12:01)
[2017-06-29] MEDS ORDERED: IV NORMAL SALINE 1,000ML 1,000 ML IV SCH (15:00)
[2017-06-29] MEDS ORDERED: IOHEXOL 300 MG/ML 75 ML VIAL. IV ONE (15:00)
[2017-06-29 15:51] VITALS: BP 152/65
--- NOTE | 2017-06-29 16:17 | RAD ---
Indication: Elevated ESR/CRP and hypercalcemia. Technique: CT chest, abdomen and pelvis with 75 mL of Omnipaque 300 with multiplanar reformats. Comparison: None Findings: CT chest: There is a 2.3 cm low attenuating nodule in the right thyroid lobe. Heart is normal in size. No pericardial or pleural effusion. Coronary artery calcifications noted. No axillary, mediastinal or hilar adenopathy. Aortic arch calcifications noted. Motion artifact noted in the mid lung zone limiting optimal evaluation. Calcified granuloma in the left lower lobe. 2 mm nodule in the right lower lobe (series 3 image 37). No suspicious bony lesions in the chest. CT abdomen and pelvis: Liver, spleen, pancreas are within normal limits. Bilateral thickening of the adrenal glands noted likely due to adenomatous hyperplasia. No hydronephrosis with bilateral kidneys demonstrate low attenuating lesions, the largest on the right measuring 3.6 cm and the largest on the left measuring 4.1 cm. These are consistent with simple cysts. No hydronephrosis. No suspicious renal lesion. No inguinal, pathologically enlarged pelvic, retroperitoneal lymph nodes. Diffuse atherosclerotic disease of abdominal aorta and bilateral iliac arteries noted. No bowel obstruction. Sigmoid and descending colon diverticulosis without diverticulitis. Normal appendix. Bladder is decompressed with Ruelas catheter. Trace amount of excreted contrast is seen in the dependent portion of the bladder. Moderate bilateral SI joint osteoarthritis. No suspicious bony lesions in the abdomen and pelvis. Grade 1 anterolisthesis of L4 over L5. There is sacralization of L1. Impression: 1. Right thyroid lobe nodule. Nonemergent ultrasound thyroid recommended. 2. No mass lesion in the chest, abdomen or pelvis. 3. Bilateral simple renal cysts. 4. Sigmoid and descending colon diverticulosis without diverticulitis. PQRS Compliance Statement: One or more of the following individualized dose reduction techniques were utilized for this examination: 1. Automated exposure control 2. Adjustment of the mA and/or kV according to patient size 3. Use of iterative reconstruction technique
[2017-06-29] MEDS ORDERED: AMOXICILLIN 250 MG CAPSULE PO SCH (21:00)
--- NOTE | 2017-06-29 23:14 | PN ---
DATE: 06/29/2017 The patient is resting slightly propped up in bed, in no apparent respiratory distress. She is awake, alert, does not seem to be in respiratory distress. The nursing staff did not voice any concern except that her blood pressure was slightly high. Her urinalysis showed that her urine culture has grown Enterococcus faecalis that is sensitive to vancomycin and decision was made to switch her to amoxicillin 500 mg 3 times a day. Her lab work showed that her sedimentation rate continued to be high at 74 and her C-reactive protein was 110 mg/dL and she continued to have also hypercalcemia, and therefore, I will arrange for her to have a CT scan of the chest, abdomen, and pelvis with oral and IV contrast. Start her on IV normal saline and we will decide on further management accordingly. I explained to the daughter that she has hypercalcemia and sedimentation rate and C-reactive protein can be a manifestation of some malignancy. Sed rate and CRP alone can be elevated in infectious, inflammatory, or malignant disorder. If the CT scans do not show any abnormality and that the daughters were not sure whether she has ever had any colonoscopy, I will transfer her to [facility] to consult the spinning operator to investigate her further. ASPEN FLOWER MD DR: JOCELYN/antonio JOB#: [id number] / [id number]
== END 2017-06-29 20:30 | disposition short-term general hospital (02) | DRG 689 ==
LOC: ER 17:26 → ICU 20:00 → 1 SOUTH 06-29 06:28
PROVIDERS: ADMIT Internal Medicine; ATTEND Internal Medicine
DX: N39.0 Urinary tract infection, site not specified (principal); E43 Unspecified severe protein-calorie malnutrition; G92 Toxic encephalopathy; I11.0 Hypertensive heart disease with heart failure; I50.32 Chronic diastolic (congestive) heart failure; R13.10 Dysphagia, unspecified; E83.52 Hypercalcemia; L89.90 Pressure ulcer of unspecified site, unspecified stage; W18.39XA Other fall on same level, initial encounter; D64.9 Anemia, unspecified; E11.9 Type 2 diabetes mellitus without complications; B95.2 Enterococcus as the cause of diseases classified elsewhere; D72.829 Elevated white blood cell count, unspecified; E03.9 Hypothyroidism, unspecified; E78.5 Hyperlipidemia, unspecified; R74.8 Abnormal levels of other serum enzymes; F03.90 Unspecified dementia, unspecified severity, without behavioral disturbance, psychotic disturbance, mood disturbance, and anxiety; E87.6 Hypokalemia; F32.9 Major depressive disorder, single episode, unspecified; Z82.49 Family history of ischemic heart disease and other diseases of the circulatory system; Z91.81 History of falling; Z87.440 Personal history of urinary (tract) infections; Z68.24 Body mass index [BMI] 24.0-24.9, adult; Y93.89 Activity, other specified; Y92.89 Other specified places as the place of occurrence of the external cause; Y99.8 Other external cause status
CPT/HCPCS: 36415; 51702; 70450; 71045; 71260; 74177; 80048; 80053; 80076; 80307; 81001; 82553; 83690; 83735; 83880; 84443; 84484; 85025; 85027; 85610; 85651; 85730; 86140; 87040; 87086; 87186; 87641; 93005; 96361; 96365; 96375; J0696; J1940; Q9967; 99285-25; G0479; J7030

== ENCOUNTER → 2017-07-16 | Outpatient (CLI) | payer MEDICARE ==
[2017-06-29 15:51] VITALS: BP 152/65
[2017-07-16 17:43] LABS: ALBUMIN 2.6 g/dL (3.4-5.0); ALBUMIN/GLOBULIN RATIO 0.6 (1.0-1.7); CALCIUM 9.5 mg/dL (8.5-10.1); CREATININE 0.8 mg/dL (0.6-1.0); GFR 83.1; TOTAL BILIRUBIN 0.5 mg/dL (0.2-1.0); TOTAL PROTEIN 7.3 g/dL (6.4-8.2)
[2017-07-16 17:45] LABS: POTASSIUM 2.8 mmol/L (3.5-5.1)
[2017-07-17 22:24] LABS: BACTERIA,URINE FEW /HPF (0-FEW); BILIRUBIN,URINE NEG (NEG); CLARITY,URINE HAZY; COLOR,URINE AMBER; GLUCOSE,URINE NEG (NEG); NITRITE,URINE NEG (NEG); SQUAMOUS EPITHELIAL CELL,UR FEW /LPF; UROBILINOGEN,URINE 0.2 mg/dL (0.2 mg/dL)
[2017-07-17 22:25] LABS: YEAST,URINE PRESENT /HPF
== END | disposition home or self-care (01) ==
LOC: LAB 16:45
PROVIDERS: ATTEND Physician Assistant
DX: I11.0 Hypertensive heart disease with heart failure (principal); I50.9 Heart failure, unspecified; K21.9 Gastro-esophageal reflux disease without esophagitis; A41.52 Sepsis due to Pseudomonas; N39.0 Urinary tract infection, site not specified; E11.9 Type 2 diabetes mellitus without complications; E83.52 Hypercalcemia; G30.9 Alzheimer's disease, unspecified; Z79.84 Long term (current) use of oral hypoglycemic drugs
CPT/HCPCS: 36415; 80053; 81001; 87040

== ENCOUNTER 2017-08-11 14:24 | Inpatient (IN) | payer MEDICARE ==
[~2017-08-11] VITALS: Ht 157.5 cm; Wt 63.7 kg
--- NOTE | 2017-08-11 15:28 | PHYS DOC ---
Past History Past Medical History: CHF, Dementia, Depression, Diabetes, Hypertension, UTI Past Surgical History: No Surgical History Alcohol Use: None Drug Use: None Adult General Chief Complaint Chief Complaint: PSYCH EVALUATION HPI HPI Patient is a 82 year old F who presents for medical screening prior to psychiatric admission. Adela has no complaints at this time. Review of Systems Review of Systems Constitutional: Denies fever or chills [] Eyes: Denies change in visual acuity, redness, or eye pain [] HENT: Denies nasal congestion or sore throat [] Respiratory: Denies cough or shortness of breath [] Cardiovascular: No additional information not addressed in HPI [] GI: Denies abdominal pain, nausea, vomiting, bloody stools or diarrhea [] : Denies dysuria or hematuria [] Musculoskeletal: Denies back pain or joint pain [] Integument: Denies rash or skin lesions [] Neurologic: Denies headache, focal weakness or sensory changes [] Endocrine: Denies polyuria or polydipsia [] All other systems were reviewed and found to be within normal limits, except as documented in this note. Family History Family History No pertinent family medical history was reported Current Medications Current Medications Current medications were reviewed Allergies Allergies Allergies Coded Allergies Type Severity Reaction Last Updated Verified I S O L A T I O N *CONTACT* Allergy Unknown 05/14/17 Yes NKMA Allergy Unknown 05/14/17 Yes Physical Exam Physical Exam Constitutional: Well developed, well nourished, no acute distress, non-toxic appearance. [] HENT: Normocephalic, atraumatic Eyes: EOMI, conjunctiva normal, no discharge. [] Neck: Normal range of motion, no tenderness, supple, no stridor. [] Cardiovascular:Heart rate regular rhythm, Lungs & Thorax: Bilateral breath sounds clear to auscultation [] Abdomen: Bowel sounds normal, soft, no tenderness, no masses, no pulsatile masses. [] Skin: Warm, dry, no erythema, no rash. [] Extremities: No tenderness, no cyanosis, no clubbing, ROM intact, no edema. [] Neurologic: Alert, normal motor function, normal sensory function, no focal deficits noted. [] Current Patient Data Vital Signs Vital Signs Date Time Temp Pulse Resp B/P (MAP) Pulse Ox O2 Delivery O2 Flow Rate FiO2 08/11/17 14:24 97.6 99 16 100 Room Air Lab Results Laboratory Tests Test 08/11/17 15:19 08/11/17 15:54 White Blood Count 7.7 x10^3/uL (4.0-11.0) Red Blood Count 4.84 x10^6/uL (3.50-5.40) Hemoglobin 14.1 g/dL (12.0-15.5) Hematocrit 42.7 % (36.0-47.0) Mean Corpuscular Volume 88 fL (79-100) Mean Corpuscular Hemoglobin 29 pg (25-35) Mean Corpuscular Hemoglobin Concent 33 g/dL (31-37) Red Cell Distribution Width 19.5 % (11.5-14.5) Platelet Count 264 x10^3/uL (140-400) Neutrophils (%) (Auto) 80 % (31-73) Lymphocytes (%) (Auto) 15 % (24-48) Monocytes (%) (Auto) 5 % (0-9) Eosinophils (%) (Auto) 0 % (0-3) Basophils (%) (Auto) 1 % (0-3) Neutrophils # (Auto) 6.1 x10^3uL (1.8-7.7) Lymphocytes # (Auto) 1.2 x10^3/uL (1.0-4.8) Monocytes # (Auto) 0.3 x10^3/uL (0.0-1.1) Eosinophils # (Auto) 0.0 x10^3/uL (0.0-0.7) Basophils # (Auto) 0.1 x10^3/uL (0.0-0.2) Sodium Level 145 mmol/L (136-145) Potassium Level 2.7 mmol/L (3.5-5.1) Chloride Level 104 mmol/L (98-107) Carbon Dioxide Level 32 mmol/L (21-32) Anion Gap 9 (6-14) Blood Urea Nitrogen 5 mg/dL (7-20) Creatinine 0.7 mg/dL (0.6-1.0) Estimated GFR (Cockcroft-Gault) 96.9 BUN/Creatinine Ratio 7 (6-20) Glucose Level 132 mg/dL (70-99) Calcium Level 9.7 mg/dL (8.5-10.1) Magnesium Level 1.6 mg/dL (1.8-2.4) Total Bilirubin 0.4 mg/dL (0.2-1.0) Aspartate Amino Transf (AST/SGOT) 13 U/L (15-37) Alanine Aminotransferase (ALT/SGPT) 9 U/L (14-59) Alkaline Phosphatase 71 U/L (46-116) Total Protein 8.1 g/dL (6.4-8.2) Albumin 3.1 g/dL (3.4-5.0) Albumin/Globulin Ratio 0.6 (1.0-1.7) Urine Collection Type U cath Urine Color Straw Urine Clarity Clear Urine pH 7.5 Urine Specific [place] 1.015 Urine Protein Neg (NEG-TRACE) Urine Glucose (UA) Neg mg/dL (NEG) Urine Ketones (Stick) Trace mg/dL (NEG) Urine Blood Trace (NEG) Urine Nitrite Neg (NEG) Urine Bilirubin Neg (NEG) Urine Urobilinogen Dipstick 0.2 mg/dL (0.2 mg/dL) Urine Leukocyte Esterase Neg (NEG) Urine RBC 1-2 /HPF (0-2) Urine WBC 1-4 /HPF (0-4) Urine Squamous Epithelial Cells Mod /LPF Urine Bacteria 0 /HPF (0-FEW) Urine Mucus Slight /LPF Urine Yeast Present /HPF Urine Opiates Screen Neg (NEG) Urine Methadone Screen Neg (NEG) Urine Barbiturates Neg (NEG) Urine Phencyclidine Screen Neg (NEG) Urine Amphetamine/Methamphetamine Neg (NEG) Urine Benzodiazepines Screen Neg (NEG) Urine Cocaine Screen Neg (NEG) Urine Cannabinoids Screen Neg (NEG) Urine Ethyl Alcohol Neg (NEG) EKG EKG Normal sinus rhythm Radiology/Procedures Radiology/Procedures [] Course & Med Decision Making Course & Med Decision Making Pertinent Labs and Imaging studies reviewed. (See chart for details) [] Dragon Disclaimer Dragon Disclaimer This electronic medical record was generated, in whole or in part, using a voice recognition dictation system. Departure Departure: Impression: Primary Impression: Encounter for medical screening examination Disposition: ADMITTED INPATIENT Condition: STABLE Referrals: CELIA PIZARRO MD (PCP) CELIA ISBELL MD Aug 11, 2017 15:28
[2017-08-11 15:36] LABS: BASO # 0.1 x10^3/uL (0.0-0.2); BASO % 1 % (0-3); EOS % 0 % (0-3); HEMATOCRIT 42.7 % (36.0-47.0); HEMOGLOBIN 14.1 g/dL (12.0-15.5); LYMPH # 1.2 x10^3/uL (1.0-4.8); LYMPH % 15 % (24-48); MEAN CORPUSCULAR HEMOGLOBIN 29 pg (25-35); MEAN CORPUSCULAR HGB CONC 33 g/dL (31-37); MEAN CORPUSCULAR VOLUME 88 fL (79-100); MONO # 0.3 x10^3/uL (0.0-1.1); MONO % 5 % (0-9); NEUT # 6.1 x10^3uL (1.8-7.7); NEUT % 80 % (31-73); PLATELET COUNT 264 x10^3/uL (140-400); RED BLOOD COUNT 4.84 x10^6/uL (3.50-5.40); RED CELL DISTRIBUTION WIDTH 19.5 % (11.5-14.5); WHITE BLOOD COUNT 7.7 x10^3/uL (4.0-11.0)
[2017-08-11 15:46] LABS: ALBUMIN 3.1 g/dL (3.4-5.0); ALBUMIN/GLOBULIN RATIO 0.6 (1.0-1.7); CALCIUM 9.7 mg/dL (8.5-10.1); CREATININE 0.7 mg/dL (0.6-1.0); GFR 96.9; MAGNESIUM 1.6 mg/dL (1.8-2.4); TOTAL BILIRUBIN 0.4 mg/dL (0.2-1.0); TOTAL PROTEIN 8.1 g/dL (6.4-8.2)
[2017-08-11 15:48] LABS: POTASSIUM 2.7 mmol/L (3.5-5.1)
[2017-08-11 16:30] LABS: BARBITURATES NEG (NEG); BENZODIAZEPINES NEG (NEG); CANNABINOIDS NEG (NEG); COCAINE NEG (NEG); METHADONE NEG (NEG); OPIATES NEG (NEG); PHENCYCLIDINE NEG (NEG)
[2017-08-11 16:31] LABS: AMPHETAMINE/METHAMPHETAMINE NEG (NEG)
[2017-08-11 16:32] LABS: BACTERIA,URINE 0 /HPF (0-FEW); BILIRUBIN,URINE NEG (NEG); CLARITY,URINE CLEAR; COLOR,URINE STRAW; GLUCOSE,URINE NEG (NEG); NITRITE,URINE NEG (NEG); SQUAMOUS EPITHELIAL CELL,UR MOD /LPF; UROBILINOGEN,URINE 0.2 mg/dL (0.2 mg/dL)
[2017-08-11 16:33] LABS: YEAST,URINE PRESENT /HPF
[2017-08-11] MEDS ORDERED: POTASSIUM CHLORIDE 20 MEQ TABLET.ER. PO ONE (17:00)
[2017-08-11] MEDS ORDERED: MAGNESIUM OXIDE 400 MG TABLET PO ONE (17:00)
[2017-08-11 20:12] VITALS: BP 178/94
[2017-08-11] MEDS ORDERED: METHYL SALICYLATE/MENTHOL TOPICAL OINTMENT 29GM TUBE. TP PRN (21:00)
[2017-08-11] MEDS ORDERED: MAG HYDROX/AL HYDROX/SIMETH 30 ML ORAL.SUSP PO PRN (21:00)
[2017-08-11] MEDS ORDERED: MAGNESIUM HYDROXIDE 2,400 MG/30 ML ORAL.SUSP. PO PRN (21:00)
--- NOTE | 2017-08-11 21:32 | PDOC ---
Exam Note: Alfred Note: Please also refer to the separate dictated note~for this date of service dictated separately.~Patient seen individually. Discussed the patient with Nursing staff reviewed the chart.~Reviewed interim history and current functioning. Reviewed vital signs,~Labs/ Radiology~and current medications noted below. Continue current treatment with the changes noted in the dictated addendum note Assessment: Vital Signs: Vital Signs Date Time Temp Pulse Resp B/P (MAP) Pulse Ox O2 Delivery O2 Flow Rate FiO2 08/11/17 20:12 97.2 89 16 178/94 (122) 96 08/11/17 18:53 Room Air Labs: Laboratory Tests Test 08/11/17 15:19 08/11/17 15:54 White Blood Count 7.7 x10^3/uL (4.0-11.0) Red Blood Count 4.84 x10^6/uL (3.50-5.40) Hemoglobin 14.1 g/dL (12.0-15.5) Hematocrit 42.7 % (36.0-47.0) Mean Corpuscular Volume 88 fL (79-100) Mean Corpuscular Hemoglobin 29 pg (25-35) Mean Corpuscular Hemoglobin Concent 33 g/dL (31-37) Red Cell Distribution Width 19.5 % (11.5-14.5) H Platelet Count 264 x10^3/uL (140-400) Neutrophils (%) (Auto) 80 % (31-73) H Lymphocytes (%) (Auto) 15 % (24-48) L Monocytes (%) (Auto) 5 % (0-9) Eosinophils (%) (Auto) 0 % (0-3) Basophils (%) (Auto) 1 % (0-3) Neutrophils # (Auto) 6.1 x10^3uL (1.8-7.7) Lymphocytes # (Auto) 1.2 x10^3/uL (1.0-4.8) Monocytes # (Auto) 0.3 x10^3/uL (0.0-1.1) Eosinophils # (Auto) 0.0 x10^3/uL (0.0-0.7) Basophils # (Auto) 0.1 x10^3/uL (0.0-0.2) Sodium Level 145 mmol/L (136-145) Potassium Level 2.7 mmol/L (3.5-5.1) *L Chloride Level 104 mmol/L (98-107) Carbon Dioxide Level 32 mmol/L (21-32) Anion Gap 9 (6-14) Blood Urea Nitrogen 5 mg/dL (7-20) L Creatinine 0.7 mg/dL (0.6-1.0) Estimated GFR (Cockcroft-Gault) 96.9 BUN/Creatinine Ratio 7 (6-20) Glucose Level 132 mg/dL (70-99) H Calcium Level 9.7 mg/dL (8.5-10.1) Magnesium Level 1.6 mg/dL (1.8-2.4) L Total Bilirubin 0.4 mg/dL (0.2-1.0) Aspartate Amino Transferase (AST) 13 U/L (15-37) L Alanine Aminotransferase (ALT) 9 U/L (14-59) L Alkaline Phosphatase 71 U/L (46-116) Total Protein 8.1 g/dL (6.4-8.2) Albumin 3.1 g/dL (3.4-5.0) L Albumin/Globulin Ratio 0.6 (1.0-1.7) L Urine Collection Type U cath Urine Color Straw Urine Clarity Clear Urine pH 7.5 Urine Specific [place] 1.015 Urine Protein Neg (NEG-TRACE) Urine Glucose (UA) Neg mg/dL (NEG) Urine Ketones (Stick) Trace mg/dL (NEG) Urine Blood Trace (NEG) Urine Nitrite Neg (NEG) Urine Bilirubin Neg (NEG) Urine Urobilinogen Dipstick 0.2 mg/dL (0.2 mg/dL) Urine Leukocyte Esterase Neg (NEG) Urine RBC 1-2 /HPF (0-2) Urine WBC 1-4 /HPF (0-4) Urine Squamous Epithelial Cells Mod /LPF Urine Bacteria 0 /HPF (0-FEW) Urine Mucus Slight /LPF Urine Yeast Present /HPF Urine Opiates Screen Neg (NEG) Urine Methadone Screen Neg (NEG) Urine Barbiturates Neg (NEG) Urine Phencyclidine Screen Neg (NEG) Urine Amphetamine/Methamphetamine Neg (NEG) Urine Benzodiazepines Screen Neg (NEG) Urine Cocaine Screen Neg (NEG) Urine Cannabinoids Screen Neg (NEG) Urine Ethyl Alcohol Neg (NEG) Current Medications: Meds: Current Medications Potassium Chloride (Klor-Con) 40 meq 1X ONCE PO Last administered on at 17:19; Start 08/11/17 at 17:00; Stop 08/11/17 at 17:02; Status DC Magnesium Oxide (Magnesium Oxide) 400 mg 1X ONCE PO Last administered on at 17:20; Start 08/11/17 at 17:00; Stop 08/11/17 at 17:02; Status DC Acetaminophen (Tylenol) 650 mg PRN Q6HRS PRN PO PAIN / TEMP; Start 08/11/17 at 21:00 Multi-Ingredient Ointment (Analgesic [place]) 1 amanda PRN QID PRN TP MUSCLE PAIN; Start 08/11/17 at 21:00 Al Hydroxide/Mg Hydroxide (Mylanta Plus Xs) 15 ml PRN AFTMEALHC PRN PO DYSPEPSIA; Start 08/11/17 at 21:00 Magnesium Hydroxide (Milk Of Magnesia) 2,400 mg PRN QHS PRN PO CONSTIPATION; Start 08/11/17 at 21:00 Active Scripts Active Mag-Oxide (Magnesium Oxide) 400 Mg Tablet 400 Mg PO TID 90 Days Reported Metoprolol Succinate ( Xl ) (Metoprolol Succinate) 50 Mg Tab.er.24h 50 Mg PO DAILY Hydralazine Hcl 25 Mg Tablet 25 Mg PO BID LAST DOSE GIVEN: DATE: TODAY TIME: AM NEXT DOSE DUE: DATE: TODAY TIME: PM I have reviewed the current psychotropics carefully including drug interactions. Risk benefit ratio favors no change other than as noted in my dictated progress note. Diagnosis: Problems: (1) Sensorineural hearing loss (SNHL) of both ears (2) Sepsis (3) Anxiety disorder (4) Impulse control disorder (5) Dementia, vascular, with depression (6) Dementia, vascular, with delusions (7) Dementia in Alzheimer's disease with delusions (8) Altered mental status (9) Dementia in Alzheimer's disease with depression (10) Hypercalcemia (11) Inability to walk MINE LUKE MD Aug 11, 2017 21:32
[2017-08-12 06:26] VITALS: BP 152/80
--- NOTE | 2017-08-12 06:34 | EKG ---
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
[2017-08-12] MEDS: METOPROLOL SUCC 24HR ER 50 MG TAB.ER.24H. PO SCH (08:28)
[2017-08-12 08:29] LABS: ALBUMIN 2.6 g/dL (3.4-5.0); ALBUMIN/GLOBULIN RATIO 0.6 (1.0-1.7); CALCIUM 9.4 mg/dL (8.5-10.1); CREATININE 0.7 mg/dL (0.6-1.0); GFR 96.9; POTASSIUM 3.2 mmol/L (3.5-5.1); TOTAL BILIRUBIN 0.4 mg/dL (0.2-1.0); TOTAL PROTEIN 6.7 g/dL (6.4-8.2)
[2017-08-12 14:58] LABS: THYROID STIM HORMONE (TSH) 1.544 uIU/mL (0.358-3.740)
[2017-08-12 15:55] VITALS: BP 131/67
--- NOTE | 2017-08-12 19:08 | HP ---
ADMIT DATE: 08/11/2017 PSYCHIATRIC ADMISSION HISTORY/EVALUATION IDENTIFYING DATA: The patient was seen individually in the evening of 08/12/2017 for this evaluation and previously reviewed with the nursing staff several times on 08/11/2017 after we received the referral once the patient presented to the ER from home after she was found by the daughter in the bedroom on the floor and had cut her night gown up with scissors. She has been increasingly disorganized, confused, psychotic, paranoid, potential danger to herself and referred for inpatient psychiatric stabilization. IDENTIFYING DATA: The patient is an 82-year-old -Martiniquais female as noted referred by Dr. Hein, her primary care physician after she presented from home to the ER. CHIEF COMPLAINT: "Maybe I am getting forgetful." HISTORY OF PRESENT ILLNESS: The patient has a history of dementia, probably Alzheimer's vascular. She has been residing at home with family, but recently getting more depressed, confused, delusional. She has had some sleep and appetite changes and the concern about safety was raised after she was using scissors as noted above. No clear history of bipolar disorder, suicidal or homicidal ideation. PAST PSYCHIATRIC HISTORY: As noted above. PAST MEDICAL HISTORY: Positive for hyperlipidemia, hypertension, type 2 diabetes mellitus, history of SC, history of recurrent urinary tract infections. The patient's potassium in the ED was 2.7, was supplemented in the morning of 08/12/2017, potassium is 3.2 DRUG ALLERGIES: Negative. CODE STATUS: Full code. Accu-Cheks: Daily. DIET: Regular. MEDICATIONS: Takes her medications whole. AMBULATES: In wheelchair. CURRENT PSYCHOTROPICS: Negative. FAMILY HISTORY: Noncontributory. SOCIAL HISTORY: No alcohol, drug abuse, physical, sexual or elder abuse history is noted. Not known to be a perpetrator. REACTION TO HOSPITALIZATION: The patient accepting of it. ASSETS: Supportive family. MENTAL STATUS EXAMINATION: The patient was seen individually the evening of 08/12/2017. She is in a wheelchair, oriented to herself, not entirely sure when she was admitted. Speech has some latency, coherent. Abstraction fair, computation impaired, language function intact, attention span short. Mood and affect remains labile. Memory is impaired. No active suicidal or homicidal ideation. IMPRESSION: Major neurocognitive disorder, Alzheimer, vascular with delusion, depression, behavioral disturbance, major depressive disorder, rule out psychotic features; anxiety disorder, unspecified; impulse control disorder, unspecified. Rest as above. PLAN: Admit to geropsychiatry unit at [facility]. I will see the patient daily individually from a psychiatric standpoint, medical followup per Dr. Hein/Dr. Delcid. Observe the patient's baseline, do not start any other psychotropics for now. We will reassess after baseline assessment in a day or two. MINE LUKE MD DR: RODERICK/antonio JOB#: [id number] / [id number]
[2017-08-12] MEDS: POTASSIUM CHLORIDE 20 MEQ TABLET.ER. PO SCH (20:30)
[2017-08-12 21:12] LABS: T3 TOTAL 127 ng/dL (71-180); THYROXINE 12.1 ug/dL (4.5-12.0)
--- NOTE | 2017-08-12 21:34 | PDOC ---
Exam Note: Alfred Note: Please also refer to the separate dictated note~for this date of service dictated separately.~Patient seen individually. Discussed the patient with Nursing staff reviewed the chart.~Reviewed interim history and current functioning. Reviewed vital signs,~Labs/ Radiology~and current medications noted below. Continue current treatment with the changes noted in the dictated addendum note Assessment: Vital Signs: Vital Signs Date Time Temp Pulse Resp B/P (MAP) Pulse Ox O2 Delivery O2 Flow Rate FiO2 08/12/17 15:55 97.1 80 18 131/67 (88) 98 08/11/17 18:53 Room Air I&O Intake and Output 08/12/17 07:00 Intake Total 240 ml Balance 240 ml Intake Oral 240 ml # Voids 1 Labs: Laboratory Tests Test 08/12/17 07:41 Sodium Level 145 mmol/L (136-145) Potassium Level 3.2 mmol/L (3.5-5.1) L Chloride Level 108 mmol/L (98-107) H Carbon Dioxide Level 30 mmol/L (21-32) Anion Gap 7 (6-14) Blood Urea Nitrogen 7 mg/dL (7-20) Creatinine 0.7 mg/dL (0.6-1.0) Estimated GFR (Cockcroft-Gault) 96.9 BUN/Creatinine Ratio 10 (6-20) Glucose Level 106 mg/dL (70-99) H Calcium Level 9.4 mg/dL (8.5-10.1) Total Bilirubin 0.4 mg/dL (0.2-1.0) Aspartate Amino Transferase (AST) 12 U/L (15-37) L Alanine Aminotransferase (ALT) 8 U/L (14-59) L Alkaline Phosphatase 55 U/L (46-116) Total Protein 6.7 g/dL (6.4-8.2) Albumin 2.6 g/dL (3.4-5.0) L Albumin/Globulin Ratio 0.6 (1.0-1.7) L Current Medications: Meds: Current Medications Potassium Chloride (Klor-Con) 40 meq 1X ONCE PO Last administered on at 17:19; Start 08/11/17 at 17:00; Stop 08/11/17 at 17:02; Status DC Magnesium Oxide (Magnesium Oxide) 400 mg 1X ONCE PO Last administered on at 17:20; Start 08/11/17 at 17:00; Stop 08/11/17 at 17:02; Status DC Acetaminophen (Tylenol) 650 mg PRN Q6HRS PRN PO PAIN / TEMP; Start 08/11/17 at 21:00 Multi-Ingredient Ointment (Analgesic [place]) 1 amanda PRN QID PRN TP MUSCLE PAIN; Start 08/11/17 at 21:00 Al Hydroxide/Mg Hydroxide (Mylanta Plus Xs) 15 ml PRN AFTMEALHC PRN PO DYSPEPSIA; Start 08/11/17 at 21:00 Magnesium Hydroxide (Milk Of Magnesia) 2,400 mg PRN QHS PRN PO CONSTIPATION; Start 08/11/17 at 21:00 Metoprolol Succinate (Toprol Xl) 50 mg DAILY PO Last administered on 08/12/17at 08:28; Start 08/12/17 at 09:00 Potassium Chloride (Klor-Con) 20 meq TID PO Last administered on 08/12/17at 20:30 ; Start 08/12/17 at 21:00 Active Scripts Active Mag-Oxide (Magnesium Oxide) 400 Mg Tablet 400 Mg PO TID 90 Days Reported Metoprolol Succinate ( Xl ) (Metoprolol Succinate) 50 Mg Tab.er.24h 50 Mg PO DAILY Hydralazine Hcl 25 Mg Tablet 25 Mg PO BID LAST DOSE GIVEN: DATE: TODAY TIME: AM NEXT DOSE DUE: DATE: TODAY TIME: PM I have reviewed the current psychotropics carefully including drug interactions. Risk benefit ratio favors no change other than as noted in my dictated progress note. Diagnosis: Problems: (1) Sensorineural hearing loss (SNHL) of both ears (2) Sepsis (3) Anxiety disorder (4) Impulse control disorder (5) Dementia, vascular, with depression (6) Dementia, vascular, with delusions (7) Dementia in Alzheimer's disease with delusions (8) Altered mental status (9) Dementia in Alzheimer's disease with depression (10) Hypercalcemia (11) Inability to walk MINE LUKE MD August 12, 2017 21:34
[2017-08-13 05:10] LABS: HEMOGLOBIN A1C 5.1 % (4.8-5.6)
[2017-08-13 06:29] VITALS: BP 132/84
[2017-08-13] MEDS: METOPROLOL SUCC 24HR ER 50 MG TAB.ER.24H. PO SCH (07:57)
[2017-08-13] MEDS: POTASSIUM CHLORIDE 20 MEQ TABLET.ER. PO SCH ×3 (07:57→21:08)
--- NOTE | 2017-08-13 10:01 | CONS ---
DATE OF CONSULTATION: 08/12/2017 REASON FOR CONSULTATION: Medical management. HISTORY OF PRESENT ILLNESS: The patient is an 82-year-old female patient who was admitted through the Emergency Room as apparently she was found by her daughter in the bedroom on the floor cutting her nightgown with scissors and all this in a background of dementia with delusion and behavioral disorder. I am not sure whether the daughter thought that the patient was attempting to harm herself, and therefore, she was admitted here for inpatient psychiatric stabilization. The patient was admitted to [address] [place] [address] on several occasions, and she was also at [facility] and actually they admitted her to [facility]. She has never displayed any suicidal or homicidal ideation and has not really been able to walk for a long period of time despite multiple attempts at rehab center. PAST MEDICAL HISTORY: Significant for hypertension, hyperlipidemia, type 2 diabetes, coronary artery disease, status post myocardial infarction and urinary tract infection. PAST PSYCHIATRIC HISTORY: Significant for dementia. PAST SURGICAL HISTORY: Significant for esophagogastroduodenoscopy as well as colonoscopy done on her most recent admission to [facility]. FAMILY HISTORY: Unremarkable. SOCIAL HISTORY: She currently lives with her daughter. She used to live with her granddaughter before. She does not smoke, drink alcohol or use any recreational drugs. We have not really seen her walking for a long time. REVIEW OF SYSTEMS: As per history of present illness. ALLERGIES: She has no known drug allergies. MEDICATIONS: She is currently on following medications: She is on hydralazine 25 mg twice a day, metoprolol succinate 50 mg once a day, magnesium oxide 400 mg 3 times a day. PHYSICAL EXAMINATION: GENERAL: When I saw her this afternoon, she was resting slightly propped up in bed, in no apparent respiratory distress. She was pale, cachectic, no jaundice, cyanosis, or thyromegaly. No jugular venous distension. No lower limb edema. VITAL SIGNS: Her heart rate was 77, blood pressure 152/80, temperature was 97.2, respiratory rate was 16 and oxygen saturation was 99% on room air. HEAD, EYES, EARS, NOSE AND THROAT: Showed normocephalic, atraumatic. NECK: Supple. HEART: Showed normal first and second sounds. No gallop, rub or murmur. CHEST: Clear to auscultation. No crepitation or rhonchi. ABDOMEN: Distended, soft, nontender. NEUROLOGIC: She is awake, alert, but somewhat confused. All her cranial nerves intact. EXTREMITIES: She moves all extremities without difficulty, although she is mostly bedbound, chair bound. LABORATORY DATA: Showed a white cell count 7700, hemoglobin 14, hematocrit 42, MCV 88 and platelet count 264,000. Her chemistry showed a serum sodium of 145, potassium 3.2, chloride 108, bicarbonate 30, anion gap of 7, BUN 7, creatinine 0.7, estimated GFR was 97 mL per minute. Her glucose was 109, calcium was 9.4. Her total bilirubin, AST, ALT, alkaline phosphatase were normal. Total protein 6.7, albumin was 2.6. Her serum iron was 35, TIBC was 198 and percent saturation was 19 mg/dL. Her serum triglycerides were 70, total cholesterol 172, LDL cholesterol was 83, VLDL was 14 and her HDL cholesterol was 75, ratio was 2. Her TSH was 1.544. She did have hypokalemia with a potassium of 2.7 on admission. Her urinalysis showed the urine was straw colored, clear with a pH of 7.5, specific gravity 1.015. The urine was negative for protein, glucose. There was a trace of ketones, trace of blood, negative for nitrite and leukocyte esterase. There are 1-2 rbc's, 1-4 wbc's, moderate ____, no bacteria. Her toxic screen was essentially negative. IMPRESSION: In summary, this is an 82-year old female patient who was found by her daughter in the bedroom on the floor cutting her nightgown with a pair of scissors. She was admitted for possible suicidal attempt, I presume, in the background of dementia with delusions and behavioral disorder. Medically, she is known to have high blood pressure, hyperlipidemia, type 2 diabetes and history of recurrent UTIs and myocardial infarction. All in all, the patient seems to be medically stable for the time being. I would continue this current treatment. I will obviously review all the lab works that are still pending at the time of this dictation and make any necessary recommendation. Thank you Dr. More for allowing me to participate in the care of this patient. ASPEN FLOWER MD DR: JOCELYN/antonio JOB#: [id number] / [id number]
[2017-08-13 16:44] VITALS: BP 137/96
[2017-08-13] MEDS ORDERED: BENZOCAINE/MENTHOL LOZNGE 18'S BOX. PO PRN (19:00)
--- NOTE | 2017-08-13 20:49 | PDOC ---
Exam Note: Alfred Note: Please also refer to the separate dictated note~for this date of service dictated separately.~Patient seen individually. Discussed the patient with Nursing staff reviewed the chart.~Reviewed interim history and current functioning. Reviewed vital signs,~Labs/ Radiology~and current medications noted below. Continue current treatment with the changes noted in the dictated addendum note Assessment: Vital Signs: Vital Signs Date Time Temp Pulse Resp B/P (MAP) Pulse Ox O2 Delivery O2 Flow Rate FiO2 08/13/17 16:44 96.6 72 18 137/96 (110) 93 08/11/17 18:53 Room Air I&O Intake and Output 08/13/17 07:00 Intake Total 1560 ml Balance 1560 ml Intake Oral 1560 ml # Bowel Movements 1 Current Medications: Meds: Current Medications Potassium Chloride (Klor-Con) 40 meq 1X ONCE PO Last administered on at 17:19; Start 08/11/17 at 17:00; Stop 08/11/17 at 17:02; Status DC Magnesium Oxide (Magnesium Oxide) 400 mg 1X ONCE PO Last administered on at 17:20; Start 08/11/17 at 17:00; Stop 08/11/17 at 17:02; Status DC Acetaminophen (Tylenol) 650 mg PRN Q6HRS PRN PO PAIN / TEMP; Start 08/11/17 at 21:00 Multi-Ingredient Ointment (Analgesic [place]) 1 amanda PRN QID PRN TP MUSCLE PAIN; Start 08/11/17 at 21:00 Al Hydroxide/Mg Hydroxide (Mylanta Plus Xs) 15 ml PRN AFTMEALHC PRN PO DYSPEPSIA; Start 08/11/17 at 21:00 Magnesium Hydroxide (Milk Of Magnesia) 2,400 mg PRN QHS PRN PO CONSTIPATION; Start 08/11/17 at 21:00 Metoprolol Succinate (Toprol Xl) 50 mg DAILY PO Last administered on 08/13/17at 07:57; Start 08/12/17 at 09:00 Potassium Chloride (Klor-Con) 20 meq TID PO Last administered on 08/13/17at 15:03 ; Start 08/12/17 at 21:00 Sertraline HCl (Zoloft) 25 mg DAILY PO ; Start 08/14/17 at 09:00 Throat Lozenges (Cepacol Sore Throat Lozenge) 1 carlos PRN Q2HR PRN PO SORE THROAT ; Start 08/13/17 at 19:00 Active Scripts Active Mag-Oxide (Magnesium Oxide) 400 Mg Tablet 400 Mg PO TID 90 Days Reported Metoprolol Succinate ( Xl ) (Metoprolol Succinate) 50 Mg Tab.er.24h 50 Mg PO DAILY Hydralazine Hcl 25 Mg Tablet 25 Mg PO BID LAST DOSE GIVEN: DATE: TODAY TIME: AM NEXT DOSE DUE: DATE: TODAY TIME: PM I have reviewed the current psychotropics carefully including drug interactions. Risk benefit ratio favors no change other than as noted in my dictated progress note. Diagnosis: Problems: (1) Anxiety disorder (2) Impulse control disorder (3) Dementia, vascular, with depression (4) Dementia, vascular, with delusions (5) Dementia in Alzheimer's disease with delusions (6) Altered mental status (7) Dementia in Alzheimer's disease with depression (8) Hypercalcemia (9) Inability to walk MINE LUKE MD August 13, 2017 20:49
[2017-08-14 05:31] VITALS: BP 133/59
[2017-08-14] MEDS: POTASSIUM CHLORIDE 20 MEQ TABLET.ER. PO SCH ×3 (07:37→20:13)
[2017-08-14] MEDS: SERTRALINE 25 MG TABLET. PO SCH (07:37)
[2017-08-14] MEDS: METOPROLOL SUCC 24HR ER 50 MG TAB.ER.24H. PO SCH (07:37)
[2017-08-14 15:51] LABS: ALBUMIN 3.2 g/dL (3.4-5.0); ALBUMIN/GLOBULIN RATIO 0.7 (1.0-1.7); CALCIUM 9.6 mg/dL (8.5-10.1); CREATININE 0.7 mg/dL (0.6-1.0); GFR 96.9; POTASSIUM 4.8 mmol/L (3.5-5.1); TOTAL BILIRUBIN 0.2 mg/dL (0.2-1.0)
[2017-08-14 16:16] VITALS: BP 165/75
--- NOTE | 2017-08-14 20:57 | PDOC ---
Exam Note: Alfred Note: Please also refer to the separate dictated note~for this date of service dictated separately.~Patient seen individually. Discussed the patient with Nursing staff reviewed the chart.~Reviewed interim history and current functioning. Reviewed vital signs,~Labs/ Radiology~and current medications noted below. Continue current treatment with the changes noted in the dictated addendum note Assessment: Vital Signs: Vital Signs Date Time Temp Pulse Resp B/P (MAP) Pulse Ox O2 Delivery O2 Flow Rate FiO2 08/14/17 16:16 97.2 71 18 165/75 (105) 99 08/11/17 18:53 Room Air I&O Intake and Output 08/14/17 07:00 Intake Total 960 ml Balance 960 ml Intake Oral 960 ml Labs: Laboratory Tests Test 08/14/17 15:25 Sodium Level 138 mmol/L (136-145) Potassium Level 4.8 mmol/L (3.5-5.1) Chloride Level 103 mmol/L (98-107) Carbon Dioxide Level 31 mmol/L (21-32) Anion Gap 4 (6-14) L Blood Urea Nitrogen 13 mg/dL (7-20) Creatinine 0.7 mg/dL (0.6-1.0) Estimated GFR (Cockcroft-Gault) 96.9 BUN/Creatinine Ratio 19 (6-20) Glucose Level 138 mg/dL (70-99) H Calcium Level 9.6 mg/dL (8.5-10.1) Total Bilirubin 0.2 mg/dL (0.2-1.0) Aspartate Amino Transferase (AST) 16 U/L (15-37) Alanine Aminotransferase (ALT) 10 U/L (14-59) L Alkaline Phosphatase 89 U/L (46-116) Total Protein 8.0 g/dL (6.4-8.2) Albumin 3.2 g/dL (3.4-5.0) L Albumin/Globulin Ratio 0.7 (1.0-1.7) L Current Medications: Meds: Current Medications Potassium Chloride (Klor-Con) 40 meq 1X ONCE PO Last administered on at 17:19; Start 08/11/17 at 17:00; Stop 08/11/17 at 17:02; Status DC Magnesium Oxide (Magnesium Oxide) 400 mg 1X ONCE PO Last administered on at 17:20; Start 08/11/17 at 17:00; Stop 08/11/17 at 17:02; Status DC Acetaminophen (Tylenol) 650 mg PRN Q6HRS PRN PO PAIN / TEMP; Start 08/11/17 at 21:00 Multi-Ingredient Ointment (Analgesic [place]) 1 amanda PRN QID PRN TP MUSCLE PAIN; Start 08/11/17 at 21:00 Al Hydroxide/Mg Hydroxide (Mylanta Plus Xs) 15 ml PRN AFTMEALHC PRN PO DYSPEPSIA; Start 08/11/17 at 21:00 Magnesium Hydroxide (Milk Of Magnesia) 2,400 mg PRN QHS PRN PO CONSTIPATION; Start 08/11/17 at 21:00 Metoprolol Succinate (Toprol Xl) 50 mg DAILY PO Last administered on 08/14/17at 07:37; Start 08/12/17 at 09:00 Potassium Chloride (Klor-Con) 20 meq TID PO Last administered on 08/14/17at 20:13 ; Start 08/12/17 at 21:00 Sertraline HCl (Zoloft) 25 mg DAILY PO Last administered on 08/14/17at 07:37; Start 08/14/17 at 09:00 Throat Lozenges (Cepacol Sore Throat Lozenge) 1 carlos PRN Q2HR PRN PO SORE THROAT ; Start 08/13/17 at 19:00 Active Scripts Active Mag-Oxide (Magnesium Oxide) 400 Mg Tablet 400 Mg PO TID 90 Days Reported Metoprolol Succinate ( Xl ) (Metoprolol Succinate) 50 Mg Tab.er.24h 50 Mg PO DAILY Hydralazine Hcl 25 Mg Tablet 25 Mg PO BID LAST DOSE GIVEN: DATE: TODAY TIME: AM NEXT DOSE DUE: DATE: TODAY TIME: PM I have reviewed the current psychotropics carefully including drug interactions. Risk benefit ratio favors no change other than as noted in my dictated progress note. Diagnosis: Problems: (1) Sensorineural hearing loss (SNHL) of both ears (2) Sepsis (3) Anxiety disorder (4) Impulse control disorder (5) Dementia, vascular, with depression (6) Dementia, vascular, with delusions (7) Dementia in Alzheimer's disease with delusions (8) Altered mental status (9) Dementia in Alzheimer's disease with depression (10) Hypercalcemia (11) Inability to walk MARLY,MAN M MD August 14, 2017 20:57
[2017-08-15 05:40] VITALS: BP 105/81
[2017-08-15] MEDS: METOPROLOL SUCC 24HR ER 50 MG TAB.ER.24H. PO SCH (09:11)
[2017-08-15] MEDS: SERTRALINE 25 MG TABLET. PO SCH (09:11)
[2017-08-15] MEDS: POTASSIUM CHLORIDE 20 MEQ TABLET.ER. PO SCH ×3 (09:11→19:40)
[2017-08-15 15:50] VITALS: BP 157/63
--- NOTE | 2017-08-15 20:56 | PDOC ---
Exam Note: Alfred Note: Please also refer to the separate dictated note~for this date of service dictated separately.~Patient seen individually. Discussed the patient with Nursing staff reviewed the chart.~Reviewed interim history and current functioning. Reviewed vital signs,~Labs/ Radiology~and current medications noted below. Continue current treatment with the changes noted in the dictated addendum note Assessment: Vital Signs: Vital Signs Date Time Temp Pulse Resp B/P (MAP) Pulse Ox O2 Delivery O2 Flow Rate FiO2 08/15/17 15:50 97.2 87 18 157/63 (94) 96 08/11/17 18:53 Room Air I&O Intake and Output 08/15/17 07:00 Intake Total 1200 ml Balance 1200 ml Intake Oral 1200 ml # Bowel Movements 1 Current Medications: Meds: Current Medications Potassium Chloride (Klor-Con) 40 meq 1X ONCE PO Last administered on at 17:19; Start 08/11/17 at 17:00; Stop 08/11/17 at 17:02; Status DC Magnesium Oxide (Magnesium Oxide) 400 mg 1X ONCE PO Last administered on at 17:20; Start 08/11/17 at 17:00; Stop 08/11/17 at 17:02; Status DC Acetaminophen (Tylenol) 650 mg PRN Q6HRS PRN PO PAIN / TEMP; Start 08/11/17 at 21:00 Multi-Ingredient Ointment (Analgesic [place]) 1 amanda PRN QID PRN TP MUSCLE PAIN; Start 08/11/17 at 21:00 Al Hydroxide/Mg Hydroxide (Mylanta Plus Xs) 15 ml PRN AFTMEALHC PRN PO DYSPEPSIA; Start 08/11/17 at 21:00 Magnesium Hydroxide (Milk Of Magnesia) 2,400 mg PRN QHS PRN PO CONSTIPATION; Start 08/11/17 at 21:00 Metoprolol Succinate (Toprol Xl) 50 mg DAILY PO Last administered on 08/15/17at 09:11; Start 08/12/17 at 09:00 Potassium Chloride (Klor-Con) 20 meq TID PO Last administered on 08/15/17at 14:02 ; Start 08/12/17 at 21:00; Stop 08/15/17 at 14:10; Status DC Sertraline HCl (Zoloft) 25 mg DAILY PO Last administered on 08/15/17at 09:11; Start 08/14/17 at 09:00 Throat Lozenges (Cepacol Sore Throat Lozenge) 1 carlos PRN Q2HR PRN PO SORE THROAT ; Start 08/13/17 at 19:00 Potassium Chloride (Klor-Con) 20 meq BID PO Last administered on 08/15/17at 19:40 ; Start 08/15/17 at 21:00 Active Scripts Active Mag-Oxide (Magnesium Oxide) 400 Mg Tablet 400 Mg PO TID 90 Days Reported Metoprolol Succinate ( Xl ) (Metoprolol Succinate) 50 Mg Tab.er.24h 50 Mg PO DAILY Hydralazine Hcl 25 Mg Tablet 25 Mg PO BID LAST DOSE GIVEN: DATE: TODAY TIME: AM NEXT DOSE DUE: DATE: TODAY TIME: PM I have reviewed the current psychotropics carefully including drug interactions. Risk benefit ratio favors no change other than as noted in my dictated progress note. Diagnosis: Problems: (1) Sensorineural hearing loss (SNHL) of both ears (2) Sepsis (3) Anxiety disorder (4) Impulse control disorder (5) Dementia, vascular, with depression (6) Dementia, vascular, with delusions (7) Dementia in Alzheimer's disease with delusions (8) Altered mental status (9) Dementia in Alzheimer's disease with depression (10) Hypercalcemia (11) Inability to walk MINE LUKE MD August 15, 2017 20:56
[2017-08-16 06:12] VITALS: BP 158/76
[2017-08-16] MEDS: POTASSIUM CHLORIDE 20 MEQ TABLET.ER. PO SCH ×2 (07:44→19:34)
[2017-08-16] MEDS: SERTRALINE 25 MG TABLET. PO SCH (07:44)
[2017-08-16] MEDS: METOPROLOL SUCC 24HR ER 50 MG TAB.ER.24H. PO SCH (07:44)
--- NOTE | 2017-08-16 09:32 | PN ---
DATE: 08/14/2017 PSYCHIATRIC PROGRESS NOTE This is a late entry for 08/14/2017, covers elements not covered in my initial note of 08/14/2017. SUBJECTIVE: The patient was staffed with the entire team the morning of 08/14/2017, seen individually in the evening. The patient remains somewhat attention seeking, mainly when the daughter visits per nursing report, reviewed her history with social service staff, placement options. REVIEW OF SYSTEMS: Ambulation impaired, in wheelchair. No CV, , pulmonary, eye system symptoms on review. MENTAL STATUS EXAM: Oriented to herself and situation. Speech has some latency, coherent. Abstraction fair, computation impaired, language function intact, attention span short. Mood and affect remain somewhat anxious, labile. LABORATORY DATA: Reviewed. IMPRESSION: Major depressive disorder; anxiety disorder, unspecified; major neurocognitive disorder, Alzheimer, vascular with depression. PLAN: Continue psychotropics mentioned in my initial note. May need to increase Zoloft gradually. MINE LUKE MD DR: RODERICK/antonio JOB#: [id number] / [id number]
--- NOTE | 2017-08-16 16:36 | PN ---
DATE: 08/13/2017 This is a late entry, 08/13/2017, covers the elements not covered in my initial note, 08/13/2017. SUBJECTIVE: I met with the patient in the evening. The patient slept 7-3/4 hours previous evening. Social service staff called me about her contact with the patient's daughter, Rosie. Reportedly, the patient gets extremely needy, anxious when her daughter is around her, prefers not to do anything for herself even though she can and wants the doctor to do more than she should be expecting. She remains somewhat anxious, dysphoric. No active suicidal or homicidal ideation. REVIEW OF SYSTEMS: Ambulation impaired, in wheelchair. No CV, , pulmonary, eye, ENT system symptoms on review. MENTAL STATUS EXAM: Oriented to herself and situation. Speech is coherent, has some latency. Abstraction fair, computation impaired, language function intact. Mood and affect still somewhat anxious, labile, dysphoric, though she minimizes the latter. LABORATORY DATA: Reviewed. IMPRESSION: Major depressive disorder, recurrent; anxiety disorder, unspecified; major neurocognitive disorder, early Alzheimer, vascular with depression, cognitive disorder, unspecified. PLAN: Start Zoloft 25 mg a day. Continue rest unchanged. MINE LUKE MD DR: RODERICK/antonio JOB#: [id number] / [id number]
[2017-08-16 16:42] VITALS: BP 139/60
[2017-08-16] MEDS: ACETAMINOPHEN 325 MG TABLET PO PRN (21:03)
--- NOTE | 2017-08-16 22:53 | PDOC ---
Exam Note: Alfred Note: Please also refer to the separate dictated note~for this date of service dictated separately.~Patient seen individually. Discussed the patient with Nursing staff reviewed the chart.~Reviewed interim history and current functioning. Reviewed vital signs,~Labs/ Radiology~and current medications noted below. Continue current treatment with the changes noted in the dictated addendum note Assessment: Vital Signs: Vital Signs Date Time Temp Pulse Resp B/P (MAP) Pulse Ox O2 Delivery O2 Flow Rate FiO2 08/16/17 21:14 100 08/16/17 16:42 97.6 60 18 139/60 (86) 08/11/17 18:53 Room Air I&O Intake and Output 08/16/17 07:00 Intake Total 1560 ml Balance 1560 ml Intake Oral 1560 ml # Bowel Movements 2 Current Medications: Meds: Current Medications Potassium Chloride (Klor-Con) 40 meq 1X ONCE PO Last administered on 17:19; Start 08/11/17 at 17:00; Stop 08/11/17 at 17:02; Status DC Magnesium Oxide (Magnesium Oxide) 400 mg 1X ONCE PO Last administered on at 17:20; Start 08/11/17 at 17:00; Stop 08/11/17 at 17:02; Status DC Acetaminophen (Tylenol) 650 mg PRN Q6HRS PRN PO PAIN / TEMP Last administered on 08/16/17at 21:03; Start 08/11/17 at 21:00 Multi-Ingredient Ointment (Analgesic [place]) 1 amanda PRN QID PRN TP MUSCLE PAIN; Start 08/11/17 at 21:00 Al Hydroxide/Mg Hydroxide (Mylanta Plus Xs) 15 ml PRN AFTMEALHC PRN PO DYSPEPSIA; Start 08/11/17 at 21:00 Magnesium Hydroxide (Milk Of Magnesia) 2,400 mg PRN QHS PRN PO CONSTIPATION; Start 08/11/17 at 21:00 Metoprolol Succinate (Toprol Xl) 50 mg DAILY PO Last administered on 08/16/17at 07:44; Start 08/12/17 at 09:00 Potassium Chloride (Klor-Con) 20 meq TID PO Last administered on 08/15/17at 14:02 ; Start 08/12/17 at 21:00; Stop 08/15/17 at 14:10; Status DC Sertraline HCl (Zoloft) 25 mg DAILY PO Last administered on 08/16/17at 07:44; Start 08/14/17 at 09:00 Throat Lozenges (Cepacol Sore Throat Lozenge) 1 carlos PRN Q2HR PRN PO SORE THROAT ; Start 08/13/17 at 19:00 Potassium Chloride (Klor-Con) 20 meq BID PO Last administered on 08/16/17at 19:34 ; Start 08/15/17 at 21:00 Active Scripts Active Mag-Oxide (Magnesium Oxide) 400 Mg Tablet 400 Mg PO TID 90 Days Reported Metoprolol Succinate ( Xl ) (Metoprolol Succinate) 50 Mg Tab.er.24h 50 Mg PO DAILY Hydralazine Hcl 25 Mg Tablet 25 Mg PO BID LAST DOSE GIVEN: DATE: TODAY TIME: AM NEXT DOSE DUE: DATE: TODAY TIME: PM I have reviewed the current psychotropics carefully including drug interactions. Risk benefit ratio favors no change other than as noted in my dictated progress note. Diagnosis: Problems: (1) Sensorineural hearing loss (SNHL) of both ears (2) Sepsis (3) Anxiety disorder (4) Impulse control disorder (5) Dementia, vascular, with depression (6) Dementia, vascular, with delusions (7) Dementia in Alzheimer's disease with delusions (8) Altered mental status (9) Dementia in Alzheimer's disease with depression (10) Hypercalcemia (11) Inability to walk MINE LUKE MD August 16, 2017 22:53
[2017-08-16] MEDS ORDERED: ACET325T9 PO (23:03)
[2017-08-16] MEDS ORDERED: BENZ1LOZ48 MM (23:03)
[2017-08-16] MEDS ORDERED: MAG355OR17 PO (23:04)
[2017-08-16] MEDS ORDERED: MAGN2400 PO (23:05)
[2017-08-16] MEDS ORDERED: METH29OI TP (23:06)
[2017-08-16] MEDS ORDERED: POTA20TA82 PO (23:07)
[2017-08-16] MEDS ORDERED: SERT25TA PO (23:08)
[2017-08-17 06:15] VITALS: BP 156/75
[2017-08-17] MEDS: POTASSIUM CHLORIDE 20 MEQ TABLET.ER. PO SCH (09:00)
[2017-08-17] MEDS: METOPROLOL SUCC 24HR ER 50 MG TAB.ER.24H. PO SCH (09:17)
[2017-08-17] MEDS: SERTRALINE 25 MG TABLET. PO SCH (09:17)
[2017-08-17] MEDS: ACETAMINOPHEN 325 MG TABLET PO PRN (09:20)
[2017-08-17 12:45] VITALS: BP 137/72
[2017-08-17 13:00] VITALS: BP 125/59
[2017-08-17 13:15] VITALS: BP 134/63
[2017-08-17 13:30] VITALS: BP 123/60
--- NOTE | 2017-08-17 14:11 | RAD ---
CT head without intravenous contrast History: Fall today, headache, dizzy, trauma. Comparison: CT head June 27, 2017. Technique: Axial images are obtained of the head from the skull base through the vertex without IV contrast. Exposure: One or more of the following individualized dose reduction techniques were utilized for this examination: 1. Automated exposure control 2. Adjustment of the mA and/or kV according to patient size 3. Use of iterative reconstruction technique Findings: The ventricles are appropriate in size, shape, and location for the patient's age. No obvious intracranial mass, mass-effect, midline shift, hemorrhage or obvious acute infarction is identified. Basilar cisterns are patent. Patchy, nonspecific white matter low-attenuation seen, probably from chronic microvascular ischemic disease Bone windows demonstrate no acute calvarial abnormality. The visualized paranasal sinuses appear clear. Impression: 1. No acute intracranial process. Please note that CT can be relatively insensitive to acute ischemic infarction for up to 24 hours after symptom onset. 2. Nonspecific white matter changes, probably from chronic microvascular ischemic disease. Electronically signed by: Thee Niño MD (08/17/2017 2:08 PM) [facility]
--- NOTE | 2017-08-18 21:37 | DS ---
DATE OF DISCHARGE: 08/17/2017 DISCHARGE SUMMARY/PSYCHIATRIC PROGRESS NOTE This late entry date of service 08/17/2017 covers elements not covered in my initial note of 08/17/2017. REASON FOR ADMISSION: Please refer to the admission history for details. Briefly, the patient is an 82-year-old -[place] female, who presented to the Emergency Room from home, brought in by her daughter after the patient was found by the daughter in the bedroom on floor and had cut her nightgown up with scissors. The patient appeared more confused, depressed, delusional and her behaviors presented her to be a danger to herself and she was referred for inpatient psychiatric stabilization. SIGNIFICANT FINDINGS AND CLINICAL COURSE: Following admission, the patient was seen daily individually by myself, followed medically per Dr. Hein/Dr. Delcid. The patient was initially quite depressed, withdrawn, anxious with short-term memory deficits. Adjustments were made in her psychotropics and she seemed to respond to a combination of Zoloft 25 mg a day to help reduce her anxiety, stabilize mood. She did have short-term memory deficits, but mood, anxiety were better prior to discharge. REVIEW OF SYSTEMS: Prior to discharge, ambulation is impaired. No CV, , pulmonary, eye system symptoms on review. MENTAL STATUS EXAM: Oriented to herself and situation. Speech has moderate latency, coherent. Abstraction fair, computation is impaired, language function intact, attention span short. Mood and affect appears improved. FINAL DIAGNOSES: Major depressive disorder with psychotic features; anxiety disorder, unspecified; major neurocognitive disorder, Alzheimer, vascular with depression. Rest is unchanged from admission. DISCHARGE MEDICATIONS: Please refer to the EMRAD. DISCHARGE INSTRUCTIONS: Outpatient psychiatric and medical followup with her outpatient providers as arranged by social service staff. Time for discharge day management was greater than 30 minutes. MAN Carlos LUKE MD DR: RODERICK/antonio JOB#: [id number] / [id number]
--- NOTE | 2017-08-19 02:30 | PN ---
DATE: 08/15/2017 This late entry 08/15/2017 covers elements not covered in my initial note 08/15/2017. Met with the patient the evening of 08/15/2017. SUBJECTIVE: The patient slept 8-1/2 hours. Staff are encouraging her to do all she can for herself, but she is still dysphoric with short-term memory deficits. Her daughter visited her, and when the daughter was around her, the patient does even less for herself. No behaviors noted, per nursing staff. REVIEW OF SYSTEMS: Ambulation impaired, in wheelchair. No CV, , pulmonary, eye system symptoms on review. MENTAL STATUS EXAM: The patient is oriented to herself and situation. Speech moderate latency, often responses monosyllabic. Abstraction fair, computation impaired, language function intact. Mood and affect still somewhat dysphoric, anxious, but showing improvement. LABORATORY DATA: Reviewed. IMPRESSION: Unchanged from initial note. PLAN: Continue Zoloft at current dosage. MINE LUKE MD DR: RODERICK/antonio JOB#: [id number] / [id number]
--- NOTE | 2017-08-19 02:33 | PN ---
DATE: 08/16/2017 This late entry 08/16/2017 covers elements not covered in my initial note 08/16/2017. Met with the patient in the evening of 08/16/2017. Overall, the patient remains somewhat withdrawn, anxious, but doing a little more for herself. REVIEW OF SYSTEMS: Ambulation impaired, in wheelchair. No CV, , pulmonary, eye system symptoms on review. MENTAL STATUS EXAM: Oriented to herself and situation. Speech is coherent, abstraction fair, computation impaired, language function intact. Short term memory is impaired. No suicidal ideation. LABORATORY DATA: Reviewed. IMPRESSION: Unchanged from initial note. PLAN: Continue Zoloft at current dosage. MAN Carlos LUKE MD DR: RODERICK/antonio JOB#: [id number] / [id number]
== END 2017-08-17 16:22 | disposition home or self-care (01) | DRG 56 ==
LOC: ER 14:24 → GEROPSY 18:50 → ER 18:56 → GEROPSY 08-13 03:43
PROVIDERS: ADMIT Psychiatry & Neurology Psychiatry; ATTEND Psychiatry & Neurology Psychiatry
DX: G30.9 Alzheimer's disease, unspecified (principal); A41.9 Sepsis, unspecified organism; F33.3 Major depressive disorder, recurrent, severe with psychotic symptoms; I11.0 Hypertensive heart disease with heart failure; I50.9 Heart failure, unspecified; F01.51 Vascular dementia, unspecified severity, with behavioral disturbance; F02.81 Dementia in other diseases classified elsewhere, unspecified severity, with behavioral disturbance; E11.9 Type 2 diabetes mellitus without complications; E83.52 Hypercalcemia; F41.9 Anxiety disorder, unspecified; F63.9 Impulse disorder, unspecified; H90.5 Unspecified sensorineural hearing loss; I25.10 Atherosclerotic heart disease of native coronary artery without angina pectoris; E78.5 Hyperlipidemia, unspecified; I25.2 Old myocardial infarction; Z79.899 Other long term (current) drug therapy; Z87.440 Personal history of urinary (tract) infections
CPT/HCPCS: 36415; 70450; 80053; 80061; 80307; 81001; 82306; 82607; 83036; 83540; 83550; 83735; 84436; 84443; 84480; 85025; 86593; 93005; 97116; 97530; 99285-25; G0479